=== PATIENT | male | born 1990 | race Caucasian/White ===

== ENCOUNTER → 2016-07-08 | Outpatient (CLI) | payer OTHER ==
[~2016-07-08] MED LIST: CALC0.2510 PO; LEVO1TAB33 PO; LSN25 PO; SULF800T23 PO
[2016-07-08 12:04] LABS: BLOOD UREA NITROGEN 29 mg/dl (7-18); CALCIUM 8.9 mg/dl (8.5-10.1); CARBON DIOXIDE 20 mmol/L (21-32); CHLORIDE 109 mmol/L (98-107); GLUCOSE 85 mg/dl (70-99); PHOSPHORUS 2.4 mg/dl (2.5-4.9); POTASSIUM 3.6 mmol/L (3.5-5.1); SODIUM 141 mmol/L (136-145)
== END | disposition home or self-care (01) ==
LOC: C.LAB1850 10:43
PROVIDERS: ATTEND Internal Medicine Nephrology
DX: N18.3 Chronic kidney disease, stage 3 (moderate) (principal); N25.81 Secondary hyperparathyroidism of renal origin

== ENCOUNTER 2024-01-31 21:59 | Inpatient (IN) ==
[2024-01-31] MEDS: ONDANSETRON INJ 2 MG/ML 2 ML VIAL IV STA (22:35)
[2024-01-31] MEDS: SODIUM CHLORIDE 0.9% 1,000 ML IV STA (22:37)
[2024-01-31 22:41] LABS: Appearance Urine Turbid (Clear); Bilirubin Urine Negative (Negative); Blood Urine 3+ (Negative); Color Urine Brown; Glucose Urine UA Negative (Negative); Ketones Urine Negative (Negative); Leukocyte Esterase Urine 3+ (Negative); Nitrite Urine Negative (Negative); Protein Urine 3+ (Negative); Urobilinogen Urine Negative (Negative); pH Urine 8.5 (4.5-7.5)
[2024-01-31 22:52] LABS: Bacteria Urine 4+ (None Seen); Epithelial Cell Urine 0-2 /hpf (0-2); RBC Urine >20 /hpf (0-2); WBC Urine >50 /hpf (0-5)
[2024-01-31 22:53] LABS: Granular Casts Urine Present /lpf (None Prsent); Hyaline Casts Urine Present /lpf (None Presnt)
[2024-01-31 22:54] LABS: Renal Epithelial Cells Urine Present /lpf (None Presnt)
[2024-01-31 22:55] LABS: White Blood Cell Casts Urine Present /lpf (None Prsent)
[2024-01-31 23:00] LABS: Basophils # (auto) 0.09 K/uL (0.00-0.20); Basophils % (auto) 0.6 %; Eosinophils # (auto) 0.13 K/uL (0.00-0.50); Eosinophils % (auto) 0.9 %; Hematocrit (blood only) 51.6 % (42.0-52.0); Hemoglobin 17.4 g/dl (14.0-18.0); Immature Granulocytes # (auto) 0.06 K/uL (0.01-0.20); Immature Granulocytes % (auto) 0.4 %; Lymphocytes # (auto) 2.55 K/uL (1.20-3.40); Lymphocytes % (auto) 16.8 %; Mean Corpuscular Hemoglobin 29.3 pg (25.0-34.0); Mean Corpuscular Hgb Conc 33.7 g/dL (32.0-36.0); Mean Corpuscular Volume 86.9 fL (80.0-100.0); Mean Platelet Volume 9.5 fL (9.4-12.4); Monocytes # (auto) 1.44 K/uL (0.11-0.59); Monocytes % (auto) 9.5 %; Neutrophils # (auto) 10.91 K/uL (1.40-6.50); Neutrophils % (auto) 71.8 %; Platelet Count 441 K/uL (130-400); RDW Coefficient of Variation 15.2 % (11.5-14.5); RDW Standard Deviation 46.4 fL (36.4-46.3); Red Blood Count 5.94 M/uL (4.70-6.10); White Blood Count 15.18 K/ul (4.8-10.8)
--- NOTE | 2024-01-31 23:00 | Emergency Department Note ---
Impression & Plan Complicated urinary tract infection, Sepsis, Leukocytosis, Acute kidney injury superimposed on chronic kidney disease, Hydroureteronephrosis ED Provider Note HISTORY OF PRESENT ILLNESS: Patient is a 33-year-old male presenting with concern for urinary tract infection. Patient reports that he self caths. He states that he was treated for urinary tract infection 2 weeks ago and completed a course of antibiotics 1 week ago. He does not remember the name of the antibiotic that he was on. Reports this was done through lock even. He states that normally he requires Rocephin for urinary tract infections, but he was discharged on a different oral medication. He states that in the last 2 to 3 days he has had some cloudy and discolored urine that has a foul odor to it. He reports nausea and has had multiple episodes of vomiting throughout the day today. He reports some bilateral low back pain throughout the day. Denies any chest pain or shortness of breath. Denies any measured fevers at home. ROS: as above PHYSICAL EXAM: Constitutional: Patient appears in no acute distress. HENT: Head: Normocephalic and atraumatic. Eyes: EOMI, PERRL Mouth/Throat: Mucous membranes moist. Neck: Trachea midline. Neck supple. Cardiovascular: RRR, No murmurs, rubs or gallops. Intact distal pulses. Pulmonary/Chest: No respiratory distress. Breath sounds clear and equal bilaterally. No wheezes or rales. Abdominal: Abdomen soft, no tenderness, rebound or guarding. Back: No midline spinal tenderness, no paraspinal tenderness. Left CVA tenderness Musculoskeletal: No edema, tenderness or deformity noted. Skin: Warm and dry. No rash, erythema, pallor or cyanosis Psychiatric: Appropriate mood and affect for situation. Neurological: Alert and keenly responsive. CN II-XII grossly intact, moving all extremities equally and fully. MDM: - Vitals signs showed tachycardia - History obtained via patient. History as above. - Chronic conditions affecting care: CKD - Differential diagnoses include, but are not limited to: Pyelonephritis; ureteral stone; hydronephrosis; UTI - Order placed for continuous cardiac monitoring. At this time, monitor showed rate of 84 bpm with normal sinus rhythm, per my interpretation. - External medical records reviewed. - EKG interpreted by myself showed normal sinus rhythm. Rate 83 bpm. QT prolonged at 410. No acute ischemic changes. - Laboratory workup interpreted by myself showed leukocytosis (WBC 15.18) with neutrophil predominance; hyponatremia (Na 135); elevated anion gap (12); RAGHAVENDRA on CKD (Cr 2.46); elevated lipase; normal lactate; normal procalcitonin - UA showed evidence of infection. Given 2 g IV Rocephin. - Given 4 mg IV zofran, with improvement in his nausea - CT abdomen/pelvis wo contrast showed bilateral hydroureteronephrosis. No obvious obstructing stone. - Patient given 1.5L NS in ER. Patient sepsis fluid volume calculation based on ideal body weight is 1690.80 mL. - Given patient's tachycardia, leukocytosis and urinary tract infection, he meets sepsis criteria at this point. - Discussion was had with correctional casework specialist about patient's case and need for admission - Hospitalist, Dr. Costello, consulted for admission - [facility]. I have personally spent 61 minutes of critical care time in the direct management of this patient. This includes bedside care, interpretation of diagnostic studies, and testing, discussion with consultants, patient, and family members, and other required patient management activities. This 61 minutes is in excess of all separately billable procedures. ASSESSMENT AND PLAN: Diagnosis: complicated UTI; sepsis; RAGHAVENDRA on CKD; leukocytosis; hydroureteronephrosis Plan: admit Past Med/Surg History Problem List (Updated 02/01/24 @ 00:07 by Felipa Gustafson MD) Hydroureteronephrosis (Acute) Acute kidney injury superimposed on chronic kidney disease (Acute) Leukocytosis (Acute) Sepsis (Acute) Complicated urinary tract infection (Acute) Medical History (Updated 02/01/24 @ 00:07 by Felipa Gustafson MD) CKD (chronic kidney disease) Surgical History History of urologic surgery Social History Smoking Status: Never smoker Preferred Language: [place] Feels Safe at Home: Yes Allergies Allergies Allergy/AdvReac Type Severity Reaction Status Date / Time latex Allergy Unknown ? Verified 09/23/11 16:39 Home Meds Home Medications Medication Instructions Recorded Confirmed Calcitriol (Rocaltrol Cap) 0.25 mcg PO DAILY ##0 01/28/10 Lisinopril (Zestril *) 2.5 mg PO Q2D ##0 01/28/10 Sulfa/Trimethoprim (Bactrim Ds 1 tab PO BID ##20 09/23/11 800MG/160MG) Previous Rx's Medication Instructions Recorded Levofloxacin (Levaquin) 250 mg PO DAILY 7 days ##0 09/25/11 Results & Data (ED) Vital Signs Vital Signs - 24 hr 01/31/24 22:02 01/31/24 22:41 01/31/24 22:42 Temperature 36.3 C L Temperature Source Temporal Artery Scan Pulse Rate 109 H 83 84 Pulse Rhythm Regular Pulse Strength Normal Respiratory Rate 20 20 Respiratory Effort / Characteristics Non-Labored Spontaneous Respiratory Depth Normal Respiratory Pattern Regular Blood Pressure 112/74 109/87 Blood Pressure Mean 86 94 Pulse Oximetry 92 94 Oxygen Delivery Method Room Air Sepsis Recent Fever Within 48 Hours No Sepsis New/Unexplained Change in Mental Status No Sepsis Action Taken by Nursing No Action Required Laboratory Data 01/31/24 22:33 01/31/24 22:33 Lab Results 01/31/24 01/31/24 Range/Units 22:33 Unknown WBC 15.18 H (4.8-10.8) K/ul RBC 5.94 (4.70-6.10) M/uL Hgb 17.4 (14.0-18.0) g/dl Hct 51.6 (42.0-52.0) % MCV 86.9 (80.0-100.0) fL MCH 29.3 (25.0-34.0) pg MCHC 33.7 (32.0-36.0) g/dL RDW Std Deviation 46.4 H (36.4-46.3) fL RDW Coeff of Mauricio 15.2 H (11.5-14.5) % Plt Count 441 H (130-400) K/uL MPV 9.5 (9.4-12.4) fL Immature Gran % (Auto) 0.4 % Neut % (Auto) 71.8 % Lymph % (Auto) 16.8 % [place] % (Auto) 9.5 % Eos % (Auto) 0.9 % Baso % (Auto) 0.6 % Neut # (Auto) 10.91 H (1.40-6.50) K/uL Lymph # (Auto) 2.55 (1.20-3.40) K/uL [place] # (Auto) 1.44 H (0.11-0.59) K/uL Eos # (Auto) 0.13 (0.00-0.50) K/uL Baso # (Auto) 0.09 (0.00-0.20) K/uL Immature Gran # (Auto) 0.06 (0.01-0.20) K/uL Sodium 135 L (136-145) mmol/L Potassium 3.7 (3.5-5.1) mmol/L Chloride 110 H (98-107) mmol/L Carbon Dioxide 13 L (21-32) mmol/L Anion Gap 12 H (3-11) BUN 43 H (6-23) mg/dl Creatinine 2.46 H (0.6-1.4) mg/dl Est Cr Clr Drug Dosing 31.7 ml/min Est GFR ( Amer) 38.4 ml/min Est GFR (Non-Af Amer) 33.2 ml/min BUN/Creatinine Ratio 17.5 (10-20) Glucose 113 H (70-99(Fasting)) mg/dl Lactate 1.4 (0.4-2.0) mmol/L Calcium 9.9 (8.6-10.3) mg/dl Total Bilirubin 0.7 (0.2-1.0) mg/dl AST 13 (13-39) U/L ALT 18 (7-52) U/L Alkaline Phosphatase 101 (34-104) U/L Total Protein 8.8 H (6.0-8.3) gm/dl Albumin 4.8 (3.4-5.0) gm/dl Globulin 4.0 (2.5-4.0) gm/dl Albumin/Globulin Ratio 1.2 (0.9-2) Lipase 182 H (11-82) U/L Procalcitonin 0.23 (0-0.5) ng/ml Urine Color Brown Urine Appearance Turbid A (Clear) Urine pH 8.5 H (4.5-7.5) Ur Specific [place] 1.020 (1.000-1.030) Urine Protein 3+ H (Negative) Urine Glucose (UA) Negative (Negative) Urine Ketones Negative (Negative) Urine Blood 3+ H (Negative) Urine Nitrite Negative (Negative) Urine Bilirubin Negative (Negative) Urine Urobilinogen Negative (Negative) Ur Leukocyte Esterase 3+ H (Negative) Urine RBC >20 H (0-2) /hpf Urine WBC >50 H (0-5) /hpf Ur Epithelial Cells 0-2 (0-2) /hpf Ur Renal Epithelial Cell Present A (None Presnt) /lpf Urine Bacteria 4+ H (None Seen) Hyaline Casts Present A (None Presnt) /lpf Granular Casts Present A (None Prsent) /lpf WBC Casts Present A (None Prsent) /lpf Administered Medications Sodium Chloride (Nss) 1,000 mls @ 999 mls/hr IV .Q1H1M ONE Stop: 02/01/24 00:18 Last Admin: 01/31/24 23:29 Dose: 999 mls/hr Documented By: JACKLYN Discontinued Medications Sodium Chloride (Nss) 1,000 mls @ 999 mls/hr IV .Q1H1M STA Stop: 01/31/24 23:21 Last Infusion: 01/31/24 23:26 Dose: Infused Documented By: Admin: 01/31/24 22:37 Dose: 999 mls/hr Documented By: JACKLYN Ceftriaxone Sodium (Rocephin) 2,000 mg in 50 mls @ 100 mls/hr IV NOW STA Stop: 01/31/24 23:27 Last Infusion: 01/31/24 23:26 Dose: Infused Documented By: Admin: 01/31/24 23:06 Dose: 100 mls/hr Documented By: JACKLYN Ondansetron HCl (Ondansetron Inj 2 Mg/Ml 2 Ml Vial) 4 mg IV NOW STA Stop: 01/31/24 22:22 Last Admin: 01/31/24 22:35 Dose: 4 mg Documented By: JACKLYN Imaging Data Radiologist's Impression: Abdomen/Pelvis CT 01/31/24 23:29 Exam(s): CT ABDOMEN + PELVIS Without Contrast EXAM: CT Abdomen and Pelvis Without Intravenous Contrast CLINICAL HISTORY: Reason for exam: bilateral flank pain; UTI. TECHNIQUE: Axial computed tomography images of the abdomen and pelvis without intravenous contrast. CTDI is 7.94 mGy and DLP is 357.28 mGy-cm. Automated exposure control was utilized for the study. A dose lowering technique was utilized adhering to the principles of ALARA. COMPARISON: No relevant prior studies available. FINDINGS: The exam is limited due to lack of contrast material. Lung bases: No consolidation. ABDOMEN: Liver: Lucencies within the liver appear to represent unopacified blood vessels. Gallbladder and bile ducts: No calcified stones. No ductal dilation. Pancreas: The visualized portions of the pancreas, on this noncontrast study, are grossly unremarkable.. Spleen: No splenomegaly. Adrenals: No mass. Kidneys and ureters: The kidneys are enlarged. There are bilateral renal calcifications. There is marked renal cortical thinning. There is marked bilateral hydronephrosis. There is marked right hydroureters. The mid portions of the ureters unite into a single ureter. No obstructing calculus is noted.. Stomach and bowel: There is some air and fluid within the stomach. There is air and stool noted in the colon.. PELVIS: Appendix: The appendix is not visualized.. Bladder: Urinary bladder is distended. There is asymmetric thickening of the urinary bladder wall. There appears to be a ostomy site in the right lower quadrant extending from the urinary bladder. Reproductive: There may be a hydrocele present within the scrotum.. ABDOMEN and PELVIS: Intraperitoneal space: . No free air. No significant fluid collection. Bones/joints: No acute fracture. No dislocation. Soft tissues: Unremarkable. Vasculature: No abdominal aortic aneurysm. Lymph nodes: There are some enlarged retroperitoneal lymph nodes.. IMPRESSION: The kidneys are enlarged. There are bilateral renal calcifications. There is marked renal cortical thinning. There is marked bilateral hydronephrosis. There is marked hydroureters. The mid portions of the ureters unite into a single ureter. No obstructing calculus is noted.. Urinary bladder is distended. There is asymmetric thickening of the urinary bladder wall. There appears to be a ostomy site in the right lower quadrant extending from the urinary bladder. There are some enlarged retroperitoneal lymph nodes.. Electronically signed by: Kolton Escalera MD 02/01/24 00:05 AM Discharge Plan Visit Data Chief Complaint: Urinary Symptoms Stated Complaint: KIDNEY INFECTION - FLANK PAIN,VOMIT ED Provider: Felipa Gustafson Discharge Problem: Complicated urinary tract infection, Sepsis, Leukocytosis, Acute kidney injury superimposed on chronic kidney disease, Hydroureteronephrosis Forms Stand Alone Forms: [facility] EditGrid Prescriptions Prescriptions: No Action Calcitriol (Rocaltrol Cap) 0.25 MCG capsule 0.25 mcg PO DAILY Qty: 0 Lisinopril (Zestril *) 2.5 MG tablet 2.5 mg PO Q2D Qty: 0 Sulfa/Trimethoprim (Bactrim Ds 800MG/160MG) tablet 1 tab PO BID Qty: 20 Levofloxacin (Levaquin) 500 MG tablet 250 mg PO DAILY 7 Days Qty: 0 0RF Referrals Referrals: PCP,NO [Primary Care Provider] -
[2024-01-31] MEDS: cefTRIAXone SODIUM 2,000 MG/50 ML BAG IV STA (23:06)
[2024-01-31 23:13] LABS: Albumin Globulin Ratio 1.2 (0.9-2); Albumin Level 4.8 gm/dl (3.4-5.0); BUN Creatinine Ratio 17.5 (10-20); Bilirubin,Total 0.7 mg/dl (0.2-1.0); Calcium 9.9 mg/dl (8.6-10.3); Creatinine Clr Calc Pharmacy 31.7 ml/min; Est GFR (African American) 38.4 ml/min; Est GFR (Non-African American) 33.2 ml/min; Potassium 3.7 mmol/L (3.5-5.1); Total Protein 8.8 gm/dl (6.0-8.3)
[2024-01-31] MEDS: SODIUM CHLORIDE 0.9% 1,000 ML IV ONE (23:29)
--- NOTE | 2024-02-01 00:06 | CT Scan Report ---
Exam(s): CT ABDOMEN + PELVIS Without Contrast EXAM: CT Abdomen and Pelvis Without Intravenous Contrast CLINICAL HISTORY: Reason for exam: bilateral flank pain; UTI. TECHNIQUE: Axial computed tomography images of the abdomen and pelvis without intravenous contrast. CTDI is 7.94 mGy and DLP is 357.28 mGy-cm. Automated exposure control was utilized for the study. A dose lowering technique was utilized adhering to the principles of ALARA. COMPARISON: No relevant prior studies available. FINDINGS: The exam is limited due to lack of contrast material. Lung bases: No consolidation. ABDOMEN: Liver: Lucencies within the liver appear to represent unopacified blood vessels. Gallbladder and bile ducts: No calcified stones. No ductal dilation. Pancreas: The visualized portions of the pancreas, on this noncontrast study, are grossly unremarkable.. Spleen: No splenomegaly. Adrenals: No mass. Kidneys and ureters: The kidneys are enlarged. There are bilateral renal calcifications. There is marked renal cortical thinning. There is marked bilateral hydronephrosis. There is marked right hydroureters. The mid portions of the ureters unite into a single ureter. No obstructing calculus is noted.. Stomach and bowel: There is some air and fluid within the stomach. There is air and stool noted in the colon.. PELVIS: Appendix: The appendix is not visualized.. Bladder: Urinary bladder is distended. There is asymmetric thickening of the urinary bladder wall. There appears to be a ostomy site in the right lower quadrant extending from the urinary bladder. Reproductive: There may be a hydrocele present within the scrotum.. ABDOMEN and PELVIS: Intraperitoneal space: . No free air. No significant fluid collection. Bones/joints: No acute fracture. No dislocation. Soft tissues: Unremarkable. Vasculature: No abdominal aortic aneurysm. Lymph nodes: There are some enlarged retroperitoneal lymph nodes.. IMPRESSION: The kidneys are enlarged. There are bilateral renal calcifications. There is marked renal cortical thinning. There is marked bilateral hydronephrosis. There is marked hydroureters. The mid portions of the ureters unite into a single ureter. No obstructing calculus is noted.. Urinary bladder is distended. There is asymmetric thickening of the urinary bladder wall. There appears to be a ostomy site in the right lower quadrant extending from the urinary bladder. There are some enlarged retroperitoneal lymph nodes.. Electronically signed by: Kolton Escalera MD 02/01/24 00:05 AM
[2024-02-01] MEDS: SODIUM CHLORIDE 0.9% 500 ML IV ONE (00:19)
--- NOTE | 2024-02-01 01:26 | History & Physical Report ---
Date of Service February 01, 2024 Assessment & Plan (1) Complicated urinary tract infection: Plan: 33-year-old male with past med history significant for chronic kidney disease, vesicoureteral reflux with multiple kidney and bladder surgeries started age 5 had bladder enlarged x3 , right and left ureters connected,had total of 19 surgeries, currently has stoma is right lower abdomen from which he straight caths 4-5 times daily and has history of recurrent UTIs comes because of urinary symptoms. Patient generally goes to [facility]. Recently was treated for UTI completed antibiotic about a week ago. Mother is in the room. Usually Rocephin works best for him per mother .Mother thinks thinks he was given different antibiotics and his UTI is not getting cleared up and decided come to the our hospital. Yesterday was doing okay was eating and ambulating okay. Today has nausea and some back pain. And his urine urine has foul smelling and dark in color. Denies fevers. Denies headache. No runny nose or sore throat or cough. No chest pain or shortness of breath. No abdominal pain. Normal bowel movements. Hemodynamics are okay. States currently not taking any medications Complicated urinary tract infection History of vesicoureteral reflux and multiple surgeries for kidney and bladder Right and left ureters connected CT scan showing marked bilateral hydronephrosis and hydroureter's. No obstructing calculus noted bladder is distended Patient straight caths from ostomy in the right lower quadrant received Rocephin which will be continued, will follow cultures Gentle fluids Close monitor RAGHAVENDRA/CKD stage III Metabolic acidosis Baseline creatinine around 2 There is record of baseline creatinine around 2.4 We do not have records Avoid nephrotoxic agents Request for records Nephrology consult in a.m Follow repeat labs DVT prophylaxis Heparin subcu Disposition Med/telemetry Full code History of Present Illness Chief Complaint: Urinary symptoms Primary Care Provider: NO PCP 33-year-old male with past med history significant for chronic kidney disease, vesicoureteral reflux with multiple kidney and bladder surgeries started age 5 had bladder enlarged x3 , right and left ureters connected,had total of 19 surgeries, currently has stoma is right lower abdomen from which he straight caths 4-5 times daily and has history of recurrent UTIs comes because of urinary symptoms. Patient generally goes to [facility]. Recently was treated for UTI completed antibiotic about a week ago. Mother is in the room. Usually Rocephin works best for him per mother .Mother thinks thinks he was given different antibiotics and his UTI is not getting cleared up and decided come to the our hospital. Yesterday was doing okay was eating and ambulating okay. Today has nausea and some back pain. And his urine urine has foul smelling and dark in color. Denies fevers. Denies headache. No runny nose or sore throat or cough. No chest pain or shortness of breath. No abdominal pain. Normal bowel movements. Hemodynamics are okay. States currently not taking any medications Past medical history. As mentioned above. Past surgical history. Multiple kidney and ureter and bladder surgeries. Social history. Denies smoking. Denies alcohol Use. Denies drug use. Family history. Brother has kidney reflux disease. Allergies Allergy/AdvReac Type Severity Reaction Status Date / Time latex Allergy Unknown ? Verified 09/23/11 16:39 Home Medications Medication Instructions Recorded Confirmed Type Calcitriol (Rocaltrol Cap) 0.25 mcg PO DAILY ##0 01/28/10 History Lisinopril (Zestril *) 2.5 mg PO Q2D ##0 01/28/10 History Sulfa/Trimethoprim (Bactrim Ds 1 tab PO BID ##20 09/23/11 History 800MG/160MG) Levofloxacin (Levaquin) 250 mg PO DAILY 7 days ##0 09/25/11 Rx Past Med/Surg History Problem List (Updated 02/01/24 @ 00:07 by Felipa Gustafson MD) Hydroureteronephrosis (Acute) Acute kidney injury superimposed on chronic kidney disease (Acute) Leukocytosis (Acute) Sepsis (Acute) Complicated urinary tract infection (Acute) Medical History (Updated 02/01/24 @ 00:07 by Felipa Gustafson MD) CKD (chronic kidney disease) Surgical History History of urologic surgery Social History Smoking Status: Never smoker Hx Alcohol Use: No Hx Substance Use: No Preferred Language: Macedonian Communication Ability: Effective Benefits Officer Required: No Beliefs That Will Affect Care: None Current Living Situation: Spouse Other Information That Helps Us Care for You: No Feels Safe at Home: Yes Safety Concerns: Feels Safe At This Time Review of Systems Review of Systems: All systems reviewed & are unremarkable except as noted in HPI & below Physical Exam Physical Exam: General-Not in distress Head- atraumatic Eyes- PERRL. ENT- oropharynx clear Neck- supple, no JVD. Lungs- clear to auscultation no wheezing or crackles Heart- regular rate and rhythm; no murmur, no gallop. Abdomen- normal bowel sounds, soft, nontender, no distension Extremities- no pretibial edema, no erythema seen Neuro- alert, oriented PERRL, EOMI; no facial palsy; no dysarthria; moves extremities Results & Data Results & Data Vital Signs (Past 12 Hours) Vital Signs Temp Pulse Resp BP Pulse Ox O2 Del Method 02/01/24 00:13 84 16 106/73 97 01/31/24 22:42 84 20 109/87 94 01/31/24 22:41 83 01/31/24 22:02 36.3 C L 109 H 20 112/74 92 Room Air Diagnostic Findings Laboratory Results WBC 15.18 K/ul (4.8-10.8) H 01/31/24 22:33 RBC 5.94 M/uL (4.70-6.10) 01/31/24 22:33 Hgb 17.4 g/dl (14.0-18.0) 01/31/24 22:33 Hct 51.6 % (42.0-52.0) 01/31/24 22:33 MCV 86.9 fL (80.0-100.0) 01/31/24 22:33 MCH 29.3 pg (25.0-34.0) 01/31/24 22:33 MCHC 33.7 g/dL (32.0-36.0) 01/31/24 22:33 RDW Std Deviation 46.4 fL (36.4-46.3) H 01/31/24 22:33 RDW Coeff of Mauricio 15.2 % (11.5-14.5) H 01/31/24 22:33 Plt Count 441 K/uL (130-400) H 01/31/24 22:33 MPV 9.5 fL (9.4-12.4) 01/31/24 22:33 Immature Gran % (Auto) 0.4 % 01/31/24 22:33 Neut % (Auto) 71.8 % 01/31/24 22:33 Lymph % (Auto) 16.8 % 01/31/24 22:33 [place] % (Auto) 9.5 % 01/31/24 22:33 Eos % (Auto) 0.9 % 01/31/24 22:33 Baso % (Auto) 0.6 % 01/31/24 22:33 Neut # (Auto) 10.91 K/uL (1.40-6.50) H 01/31/24 22:33 Lymph # (Auto) 2.55 K/uL (1.20-3.40) 01/31/24 22:33 [place] # (Auto) 1.44 K/uL (0.11-0.59) H 01/31/24 22:33 Eos # (Auto) 0.13 K/uL (0.00-0.50) 01/31/24 22:33 Baso # (Auto) 0.09 K/uL (0.00-0.20) 01/31/24 22:33 Immature Gran # (Auto) 0.06 K/uL (0.01-0.20) 01/31/24 22:33 Sodium 135 mmol/L (136-145) L 01/31/24 22:33 Potassium 3.7 mmol/L (3.5-5.1) 01/31/24 22:33 Chloride 110 mmol/L (98-107) H 01/31/24 22:33 Carbon Dioxide 13 mmol/L (21-32) L 01/31/24 22:33 Anion Gap 12 (3-11) H 01/31/24 22:33 BUN 43 mg/dl (6-23) H 01/31/24 22:33 Creatinine 2.46 mg/dl (0.6-1.4) H 01/31/24 22:33 Est Cr Clr Drug Dosing 31.7 ml/min 01/31/24 22:33 Est GFR ( Amer) 38.4 ml/min 01/31/24 22:33 Est GFR (Non-Af Amer) 33.2 ml/min 01/31/24 22:33 BUN/Creatinine Ratio 17.5 (10-20) 01/31/24 22:33 Glucose 113 mg/dl (70-99(Fasting)) H 01/31/24 22:33 Lactate 1.4 mmol/L (0.4-2.0) 01/31/24 22:33 Calcium 9.9 mg/dl (8.6-10.3) 01/31/24 22:33 Total Bilirubin 0.7 mg/dl (0.2-1.0) 01/31/24 22:33 AST 13 U/L (13-39) 01/31/24 22:33 ALT 18 U/L (7-52) 01/31/24 22:33 Alkaline Phosphatase 101 U/L (34-104) 01/31/24 22:33 Total Protein 8.8 gm/dl (6.0-8.3) H 01/31/24 22:33 Albumin 4.8 gm/dl (3.4-5.0) 01/31/24 22:33 Globulin 4.0 gm/dl (2.5-4.0) 01/31/24 22:33 Albumin/Globulin Ratio 1.2 (0.9-2) 01/31/24 22:33 Lipase 182 U/L (11-82) H 01/31/24 22:33 Procalcitonin 0.23 ng/ml (0-0.5) 01/31/24 22:33 Urine Color Brown 01/31/24 Unknown Urine Appearance Turbid (Clear) A 01/31/24 Unknown Urine pH 8.5 (4.5-7.5) H 01/31/24 Unknown Ur Specific [place] 1.020 (1.000-1.030) 01/31/24 Unknown Urine Protein 3+ (Negative) H 01/31/24 Unknown Urine Glucose (UA) Negative (Negative) 01/31/24 Unknown Urine Ketones Negative (Negative) 01/31/24 Unknown Urine Blood 3+ (Negative) H 01/31/24 Unknown Urine Nitrite Negative (Negative) 01/31/24 Unknown Urine Bilirubin Negative (Negative) 01/31/24 Unknown Urine Urobilinogen Negative (Negative) 01/31/24 Unknown Ur Leukocyte Esterase 3+ (Negative) H 01/31/24 Unknown Urine RBC >20 /hpf (0-2) H 01/31/24 Unknown Urine WBC >50 /hpf (0-5) H 01/31/24 Unknown Ur Epithelial Cells 0-2 /hpf (0-2) 01/31/24 Unknown Ur Renal Epithelial Cell Present /lpf (None Presnt) A 01/31/24 Unknown Urine Bacteria 4+ (None Seen) H 01/31/24 Unknown Hyaline Casts Present /lpf (None Presnt) A 01/31/24 Unknown Granular Casts Present /lpf (None Prsent) A 01/31/24 Unknown WBC Casts Present /lpf (None Prsent) A 01/31/24 Unknown Impressions Abdomen/Pelvis CT 01/31/24 23:29 Exam(s): CT ABDOMEN + PELVIS Without Contrast EXAM: CT Abdomen and Pelvis Without Intravenous Contrast CLINICAL HISTORY: Reason for exam: bilateral flank pain; UTI. TECHNIQUE: Axial computed tomography images of the abdomen and pelvis without intravenous contrast. CTDI is 7.94 mGy and DLP is 357.28 mGy-cm. Automated exposure control was utilized for the study. A dose lowering technique was utilized adhering to the principles of ALARA. COMPARISON: No relevant prior studies available. FINDINGS: The exam is limited due to lack of contrast material. Lung bases: No consolidation. ABDOMEN: Liver: Lucencies within the liver appear to represent unopacified blood vessels. Gallbladder and bile ducts: No calcified stones. No ductal dilation. Pancreas: The visualized portions of the pancreas, on this noncontrast study, are grossly unremarkable.. Spleen: No splenomegaly. Adrenals: No mass. Kidneys and ureters: The kidneys are enlarged. There are bilateral renal calcifications. There is marked renal cortical thinning. There is marked bilateral hydronephrosis. There is marked right hydroureters. The mid portions of the ureters unite into a single ureter. No obstructing calculus is noted.. Stomach and bowel: There is some air and fluid within the stomach. There is air and stool noted in the colon.. PELVIS: Appendix: The appendix is not visualized.. Bladder: Urinary bladder is distended. There is asymmetric thickening of the urinary bladder wall. There appears to be a ostomy site in the right lower quadrant extending from the urinary bladder. Reproductive: There may be a hydrocele present within the scrotum.. ABDOMEN and PELVIS: Intraperitoneal space: . No free air. No significant fluid collection. Bones/joints: No acute fracture. No dislocation. Soft tissues: Unremarkable. Vasculature: No abdominal aortic aneurysm. Lymph nodes: There are some enlarged retroperitoneal lymph nodes.. IMPRESSION: The kidneys are enlarged. There are bilateral renal calcifications. There is marked renal cortical thinning. There is marked bilateral hydronephrosis. There is marked hydroureters. The mid portions of the ureters unite into a single ureter. No obstructing calculus is noted.. Urinary bladder is distended. There is asymmetric thickening of the urinary bladder wall. There appears to be a ostomy site in the right lower quadrant extending from the urinary bladder. There are some enlarged retroperitoneal lymph nodes.. Electronically signed by: Kolton Escalera MD 02/01/24 00:05 AM ECG Additional Comments: ECG. Normal sinus rhythm with rate of 83. QTc 481. Code Status & VTE Plan VTE Prophylaxis Plan VTE Prophylaxis will be ordered: Yes
--- OUTSIDE RECORDS SUMMARY | 2024-02-01 02:47 | External Medical Summary ---
Author Name Unknown Address Unknown Organization R1WR:[facility] [address] [place] [address] Laboratory Report Ordering Provider Test Date Status MONICA KANG 12/01/2023 18:56:00 Final Observation Date Value Abnormality Reference (Units ) Status Specimen Description 12/01/2023 18:49 Blood Final Special Requests 12/02/2023 11:54 RAC Final Culture 12/07/2023 08:14 No Growth 5 Days Final Report Status 12/07/2023 08:14 Final Result 12/07/2023 Final Performing Location [facility] [address] [place] [address]
--- OUTSIDE RECORDS SUMMARY | 2024-02-01 02:47 | External Medical Summary ---
Author Name Unknown Address Unknown Organization R1WR:[facility] [address] [facility] [address] Laboratory Report Ordering Provider Test Date Status MONICA KANG 12/01/2023 18:57:00 Final Observation Date Value Abnormality Reference (Units ) Status Specimen Description 12/01/2023 18:49 Blood Final Special Requests 12/02/2023 11:54 LAC Final Culture 12/07/2023 08:14 No Growth 5 Days Final Report Status 12/07/2023 08:14 Final Result 12/07/2023 Final Performing Location [facility] [address] [place] [address]
--- OUTSIDE RECORDS SUMMARY | 2024-02-01 02:47 | External Medical Summary ---
Author Name Unknown Address Unknown Organization R1WR:[facility] [address] [facility] [place] [address] Laboratory Report Ordering Provider Test Date Status YE DAN 12/01/2023 18:11:00 Final Observation Date Value Abnormality Reference (Units) Status Specimen Description 12/01/2023 18:27 Urine Final Special Requests 12/01/2023 18:27 None Reflexed from [id number] Final Culture 12/03/2023 13:01 Greater than 100,000 cfu/ml Escherichia coli Final 50,000-100,000 cfu/mL STREPT OCOCCUS ANGINOSUS Report Status 12/03/2023 13:01 Final Result 12/03/2023 Final Organism 12/03/2023 09:08 Greater than 10 0,000 cfu/ml Escherichia coli Final METHOD 12/03/2023 09:08 Microscan SOCORRO-u g/ml (HARDY) Final Ampicillin 12/03/2023 09:08 >16 Resistant Resistant Final Aztreonam 12/03/2023 09:08 <=4 Sensitive Susceptible Final Cefazolin 12/03/2023 09:08 >16 Resistant Resistant Final Cefepime 12/03/2023 09:08 <=2 Sensitive Susceptible Final Ceftazidime 12/03/2023 09:08 <=1 Sensitive Susceptible Final Ceftriaxone 12/03/2023 09:08 <=1 Sensitive Susceptible Final Cefuroxime 12/03/2023 09:08 16 Intermediate Intermediate Final Ciprofloxacin 12/03/2023 09:08 >2 Resistant Resistant Final Ertapenem 12/03/2023 09:08 <=0.5 Sensitive Susceptible Final Gentamicin 12/03/2023 09:08 <=2 Sensitive Susceptible Final Levofloxacin 12/03/2023 09:08 >4 Resistant Resistant Final Meropenem 12/03/2023 09:08 <=1 Sensitive Susceptible Final Nitrofurantoin 12/03/2023 09:08 <=32 Sensitive Susceptible Final Piperacillin/Tazobactam 12/03/2023 09:08 <=8 Sensitive Susce ptible Final Tetracycline 12/03/2023 09:08 <=4 Sensitive Susceptible Final Tobramycin 12/03/2023 09:08 <=2 Sensitive Susceptible Final Sulfa/Trimethoprim 12/03/2023 09:08 <=0.5/9.5 Sensitive Susc eptible Final Ampicillin/Sulbactam 12/03/2023 09:08 16/8 Intermediate Inte rmediate Final Performing Location [facility] [address] [facility] [id number]
--- OUTSIDE RECORDS SUMMARY | 2024-02-01 02:47 | External Medical Summary ---
Author Name Unknown Address Unknown Organization [id number]:[facility] [address] [place] [address] Laboratory Report Ordering Provider Test Date Status YE TRUJILLO 01/13/2024 20:22:00 Final Observation Date Value Abnormality Reference (Units ) Status Urine WBC 01/13/2024 20:49 >100 Abnormal ZTF (/hpf) Fi nal Urine RBC 01/13/2024 20:49 50-100 Abnormal ZTFR (/hpf) F inal Urine Bacteria 01/13/2024 20:49 Many Abnormal NONE (/h pf) Final Epithelial Cells 01/13/2024 20:49 0-5 ZTF (/ lpf) Final Amorphous 01/13/2024 20:49 Moderate Abnormal NONE Fin al Performing Location [facility] [address] [place] [address]
--- OUTSIDE RECORDS SUMMARY | 2024-02-01 02:47 | External Medical Summary ---
Author Name Unknown Address Unknown Organization K01:[facility] - [address] [place] [address] Laboratory Report Ordering Provider Test Date Status HERVE FLORES 08/09/2023 18:27:25 Final Observation Date Value Abnormality Reference (Units) Status Bacteria identified in Specimen by Culture 08/09/2023 18:27:25 Multiple gala suggests contamination or colonization Final Test: Culture, Urine, Quanti tative
Specimen Source: Urine, Clean Catch
Specimen Type: Urine
Specimen Date: 08/09/2023 6:27 PM
Result Date: 08/10/2023 6:19 PM
Result Status: Final result
Resulting Lab: [facility]
[address]
[place] [id number]

CULTURE

Multiple gala suggests contamination or colonization

null Performing Location [facility] - [address] [place] [id number]
--- OUTSIDE RECORDS SUMMARY | 2024-02-01 02:47 | External Medical Summary | Summary of Care ---
Author Name Unknown Organization [facility] Address [address] [place] [address] Phone [phone] Care Team Providers Care Patient'S Librarian Name Role Phone Unavailable Primary Care Provider Unavailabl e Reason for Visit * Reason Onset Date Comments Culture Results 01/17/2024 Encounter Details Date Type Department Care Team (Late st Contact Info) Description 01/17/2024 Telephone [facility] [address] [place] [id number] Kristopher Ricks PA-C [address] [place] [id number] Culture Results Allergies Active Allergy Reactions Criticality Noted Date Comments Latex 11/21/2004 rash documented as of this encounter (statuses as of 01/19/2024) Medications Medication Sig Dispensed Refills Start Date End Date Status LISINOPRIL 2.5 MG PO TABS One pill by mouth once a day 30 11 09/10/2009 Active CALCITRIOL 0.25 MCG PO CAPS 1 CAPSULE DAILY 0 09/10/2009 Active nitrofurantoin (MACRODANTIN) 100 MG Capsule One daily Active documented as of this encounter (statuses as of 01/19/2024) Active Problems Problem Noted Date Diagnosed Date ADVANCE DIRECTIVE INFORMATION 11/21/2004 Overview: Not applicable (under age of 18) Hydronephrosis 03/23/2003 URIN TRACT INFECTION NOS 03/23/2003 Short stature 03/23/2003 documented as of this encounter (statuses as of 01/19/2024) Immunizations Name Administration Dates Next Due H1N1 2009 Influenza, IM 09/10/2009(Deferred: Pat ient Refused) Hepatitis B, 0-19 yrs 08/05/2005 Meningococcal Conjugate Vacc ine (Menactra/Menveo) 05/06/2009 documented as of this encounter Social History Tobacco Use Types Packs/Day Years Used Date Smoking Tobacco: Never Smokeless Tobacco: Never Alcohol Use Standard Drinks/Week Comments No 0 (1 standard drink = 0.6 oz pur e alcohol) Utilities Answer Date Recorded Do you have trouble paying y our heating, water, or electric bill? (Adult - for ages 18 years and over) Not on file 11/09/2023 Is your family able to pay t he heat, water, or electric bill? (Household - for ages 0-17 years) Not on file 11/09/2023 Does your family have access to good internet? (Household - for ages 0-17 years) Not on file 11/09/2023 Social Connections Answer Date Recorded How often do you feel lonely or isolated from those around you? (Adult - for ages 18 years and over) Not on file 11/09/2023 Sex and Gender Information Value Date Recorded Sex Assigned at Not on file Gender Identity Not on file Sexual Orientation Not on file Job Start Date Occupation Industry Not on file Not on file Not on file documented as of this encounter Miscellaneous Notes * Telephone Encounter - Kristopher Ricks PA-C - 01/19/2024 10:17 AM EDT INFORMED PATIENT THAT HE DID GROW OUT BACTERIA IN URINE, AND WONDERING IF [facility] STARTED HIM ON ANYTHING. SAID IT WAS CEFAXIDRIL SHOULD BE GOOD WITH THAT ONE BASED ON OUR CULTURE RESULTS. NEVER DID FIND OUT WHY HIS O2 WAS SO LOW BUT SENT HIM HOME. documented in this encounter Plan of Treatment Health Maintenance Due Date Last Done Comments Depression Screening 2002 HIV Screening 2005 Hepatitis C Screening 2008 DTap/Tdap Vaccines (6 - Td or Tdap) 02/16/2015 02/16/2005, 06/18/1992, 11/13/1991, Additional history exists COVID-19 Vaccine (2022-24 season) 2023 Influenza Vaccine (FLU shot) (#1) 2024 Hepatitis B Vaccine Completed 08/05/2005, 03/16/2005, 02/16/2005 MENINGOCOCCAL (MENACTRA/MENVEO) Completed 05/06/2009 HPV (Gardasil) Vaccine Aged Out No lo nger eligible based on patient's age to complete this topic Pneumococcal Vaccine: Pediatrics (0 to 5 Years) and At-Risk Patients (6 to 64 Years) Aged Out No longer eligible based on patient's age to complete this topic documented as of this encounter Medical Devices Not on filedocumented as of this encounter
--- OUTSIDE RECORDS SUMMARY | 2024-02-01 02:47 | External Medical Summary ---
Author Name Unknown Address Unknown Organization R4:[facility] [address] [place] [address] Laboratory Report Ordering Provider Test Date Status YE TRUJILLO 01/13/2024 20:45:00 Final Observation Date Value Abnormality Reference (Units ) Status WBC 01/13/2024 20:59 12.3 Above high normal 4.0-9 .1 (X10E+09/L) Final RBC 01/13/2024 20:59 5.39 4.6-6.1 (X10E +12/L) Final Hemoglobin 01/13/2024 20:59 16.2 13.4-17.5 (g /dL) Final Hematocrit 01/13/2024 20:59 48.2 40-51 (%) Fi nal MCV 01/13/2024 20:59 89.5 79-92 (fL) Fi nal MCH 01/13/2024 20:59 30.1 26.0-32.0 (pg ) Final MCHC 01/13/2024 20:59 33.6 32-37 (g/dL) Final Platelets 01/13/2024 20:59 371 Above high normal 150-3 30 (X10E+09/L) Final RDW 01/13/2024 20:59 14.7 Above high normal 11.6- 14.4 (%) Final Neutrophils 01/13/2024 20:59 69.2 Above high normal 34. 0-67.9 (%) Final Lymphocytes 01/13/2024 20:59 15.2 Below low normal 21.8 -53.1 (%) Final Monocytes 01/13/2024 20:59 14.6 Above high normal 5.3-1 2.2 (%) Final PERIPHERAL SMEAR REVIEWED Eosinophils 01/13/2024 20:59 0.7 Below low normal 0.8- 7.0 (%) Final Basophils 01/13/2024 20:59 0.3 0.1-1.2 (%) F inal Absolute Neutrophils 01/13/2024 20:59 8.50 Above hig h normal 1.8-5.4 (X10E+09/L) Final Absolute Lymphocytes 01/13/2024 20:59 1.90 1.3-3.6 (X10E+09/L) Final Absolute Monocytes 01/13/2024 20:59 1.80 Above high normal 0.3-0.8 (X10E+09/L) Final Absolute Eosinophils 01/13/2024 20:59 0.10 0.0-0.5 (X10E+09/L) Final Absolute Basophils 01/13/2024 20:59 0.00 0.0-0.1 (X10E+09/L) Final Performing Location [facility] [address] [place] [address]
--- OUTSIDE RECORDS SUMMARY | 2024-02-01 02:47 | External Medical Summary ---
Author Name Unknown Address Unknown Organization R1WR:[facility] [address] [facility] [place] [address] Laboratory Report Ordering Provider Test Date Status YE DAN 01/13/2024 20:22:00 Final Observation Date Value Abnormality Reference (Units) Status Specimen Description 01/13/2024 20:49 Urine Final Special Requests 01/13/2024 20:49 None Reflexed from [id number] Final Culture 01/16/2024 14:01 Greater than 100,000 cfu/ml Escherichia coli Final Greater than 100,000 cfu/ml STREPTOCOCCUS ANGINOSUS Report Status 01/16/2024 14:01 Final Result 01/16/2024 Final Organism 01/16/2024 14:01 Greater than 10 0,000 cfu/ml Escherichia coli Final METHOD 01/16/2024 14:01 Microscan SOCORRO-u g/ml (HARDY) Final Ampicillin 01/16/2024 14:01 >16 Resistant Resistant Final Aztreonam 01/16/2024 14:01 <=4 Sensitive Susceptible Final Cefazolin 01/16/2024 14:01 4 Sensitive Susceptible Final Cefepime 01/16/2024 14:01 <=2 Sensitive Susceptible Final Ceftazidime 01/16/2024 14:01 <=1 Sensitive Susceptible Final Ceftriaxone 01/16/2024 14:01 <=1 Sensitive Susceptible Final Cefuroxime 01/16/2024 14:01 16 Intermediate Intermediate Final Ciprofloxacin 01/16/2024 14:01 >2 Resistant Resistant Final Ertapenem 01/16/2024 14:01 <=0.5 Sensitive Susceptible Final Gentamicin 01/16/2024 14:01 <=2 Sensitive Susceptible Final Levofloxacin 01/16/2024 14:01 >4 Resistant Resistant Final Meropenem 01/16/2024 14:01 <=1 Sensitive Susceptible Final Nitrofurantoin 01/16/2024 14:01 <=32 Sensitive Susceptible Final Piperacillin/Tazobactam 01/16/2024 14:01 <=8 Sensitive Susce ptible Final Tetracycline 01/16/2024 14:01 <=4 Sensitive Susceptible Final Tobramycin 01/16/2024 14:01 <=2 Sensitive Susceptible Final Sulfa/Trimethoprim 01/16/2024 14:01 <=0.5/9.5 Sensitive Susc eptible Final Ampicillin/Sulbactam 01/16/2024 14:01 16/8 Intermediate Inte rmediate Final Performing Location [facility] [address] [place] [address]
--- OUTSIDE RECORDS SUMMARY | 2024-02-01 02:47 | External Medical Summary ---
Author Name Unknown Address Unknown Organization [id number]:[facility] - [address] [facility] [address] Laboratory Report Ordering Provider Test Date Status KEONPILARPEDRO LUIS 01/13/2024 19:27:12 Final Observation Date Value Abnormality Reference (Units ) Status Bacteria identified in Specimen by Culture 01/13/2024 19:27:12 [id number]^ESCHE RICHIA COLI Abnormal Final >100,000 colonies/mL Escheri isaac coli Bacteria identified in Specimen by Culture 01/13/2024 19:27:12 [id number]^STREPTOCOCCUS ANGINOSUS GROUP Abnormal Final 10,000 to 100,000 colonies/m L Streptococcus anginosus group Performing Location LABORATORY C - [address] [facility] [id number] Ordering Provider Test Date Status PEDRO LUIS HERBERT 01/13/2024 19:27:12 Final Observation Date Value Abnormality Reference (Units ) Status Ampicillin 01/13/2024 19:27:12 >=32 Resistant Final Ampicillin + Sulbactam 01/13/2024 19:27:12 16 Intermediate Final Cefazolin 01/13/2024 19:27:12 <=4 Susceptible Final Cefepime susceptibility 01/13/2024 19:27:12 <=1 Susceptible Final cefOXitin [Susceptibility] 01/13/2024 19:27:12 16 Intermediate Final Ceftriaxone suceptibility 01/13/2024 19:27:12 <=1 Susceptible Final Ciprofloxacin 01/13/2024 19:27:12 >=4 Resistant Final Due to serious side effects, the FDA has advised against using Ciprofloxacin to treat uncomplicated UTIs and respiratory tract infections unless there are no alternative treatment options. Gentamicin susceptibility 01/13/2024 19:27:12 <=1 Susc eptible Final Levofloxacin susceptibility 01/13/2024 19:27:12 >=8 Re sistant Final Due to serious side effects, the FDA has advised against using Levofloxacin to treat uncomplicated UTIs and respiratory tract infections unless there are no alternative treatment options. Nitrofurantoin susceptibility 01/13/2024 19:27:12 <=16 Susceptible Final Piperacillin + Tazobactamsusceptibility 01/13/2024 19:27:12 <=4 Susceptible Final TMP-SMZ susceptibility 01/13/2024 19:27:12 <=20 Suscept ible Final Test: Culture, Urine, Quant itative
Specimen Source: Urine, Clean Catch
Specimen Type: Urine
Specimen Date: 01/13/20241926
Result Date: 01/17/2024 1436
Result Status: Final result
Abnormal: Yes
Resulting Lab: LABORATORY [facility]
[address]
[place] [id number]

CULTURE

>100,000 colonies/mL Escherichia coli (Abnormal)

10,000 to 100,000 colonies/mL Streptococcus anginosus group (Abnormal)

SUSCEPTIBILITY

Escherichia coli
METHOD MICROBROTH
DILUTIONS

AMPICILLIN >=32 Resistant
AMPICILLIN/SULBACTAM 16 Intermediate
CEFAZOLIN <=4 Susceptible
CEFEPIME <=1 Susceptible
CEFOXITIN 16 Intermediate
CEFTRIAXONE <=1 Susceptible
CIPROFLOXACIN >=4 Resistant
[1]
GENTAMICIN <=1 Susceptible
LEVOFLOXACIN >=8 Resistant
[2]
NITROFURANTOIN <=16 Susceptible
PIPERACILLIN TAZOBACTAM <=4 Susceptible
TRIMETH/SULFAMETHOXAZOLE <=20 Susceptible

[1] Due to serious side effects, the FDA has advised against using
Ciprofloxacin to treat uncomplicated UTIs and respiratory tract infections
unless there are no alternative treatment options.

[2] Due to serious side effects, the FDA has advised against using
Levofloxacin to treat uncomplicated UTIs and respiratory tract infections
unless there are no alternative treatment options.

null Performing Location LABORATORY [facility] - [address] [facility] [address]
--- OUTSIDE RECORDS SUMMARY | 2024-02-01 02:47 | External Medical Summary | Summary of Care ---
Author Name Unknown Organization [facility] Address [address] [place] [address] Phone [phone] Care Team Providers Care Lingo Cleaner Name Role Phone Unavailable Primary Care Provider Unavailabl e Reason for Visit * Reason Comments Dysuria Encounter Details Date Type Department Care Team (Late st Contact Info) Description 01/13/2024 7:20 PM EDT [facility] [address] [place] [address] Kristopher Ricks PA-C [address] [place] [address] UTI symptoms* Allergies Active Allergy Reactions Criticality Noted Date Comments Latex 11/21/2004 rash documented as of this encounter (statuses as of 01/14/2024) Medications Medication Sig Dispensed Refills Start Date End Date Status LISINOPRIL 2.5 MG PO TABS One pill by mouth once a day 30 11 09/10/2009 Active CALCITRIOL 0.25 MCG PO CAPS 1 CAPSULE DAILY 0 09/10/2009 Active nitrofurantoin (MACRODANTIN) 100 MG Capsule One daily Active documented as of this encounter (statuses as of 01/14/2024) Active Problems Problem Noted Date Diagnosed Date ADVANCE DIRECTIVE INFORMATION 11/21/2004 Overview: Not applicable (under age of 18) Hydronephrosis 03/23/2003 URIN TRACT INFECTION NOS 03/23/2003 Short stature 03/23/2003 documented as of this encounter (statuses as of 01/14/2024) Immunizations Name Administration Dates Next Due H1N1 [...] on file documented as of this encounter Last Filed Vital Signs Vital Sign Reading Time Taken Comments Blood Pressure 131/97 01/13/2024 7:30 PM EDT Pulse 110 01/13/2024 7:30 PM EDT Temperature 36.3 C (97.4 F) 01/13/2024 7:30 PM ED T Respiratory Rate 18 01/13/2024 7:30 PM EDT Oxygen Saturation 88% 01/13/2024 7:30 PM EDT Inhaled Oxygen Concentration - - Weight - - Height - - Body Mass Index - - documented in this encounter Patient Instructions * Patient Instructions* Kristopher Ricks PA-C - 01/13/2024 7:49 PM EDT GO DIRECTLY FROM HERE TO [facility] (PATIENT'S CHOICE) documented in this encounter Progress Notes * Kristopher Ricks PA-C - 01/13/2024 7:27 PM EDT Subjective: Ash Neville is a 33 year old male. 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 NO Hx of LOW SpO2 LEVELS; LAST SpO2 ON RECORD 07/2023 AND 95% All other systems reviewed and are negative. Patient Active Problem List Diagnosis Hydronephrosis URIN TRACT INFECTION NOS Short stature ADVANCE DIRECTIVE INFORMATION Current Outpatient Medications Medication Sig Dispense Refill LISINOPRIL 2.5 MG PO TABS One pill by mouth once a day 30 11 CALCITRIOL 0.25 MCG PO CAPS 1 CAPSULE DAILY 0 nitrofurantoin (MACRODANTIN) 100 MG Capsule One daily No current facility-administered medications for this visit. Review of patient's allergies indicates: Allergen Reactions Latex rash OBJECTIVE: BP 131/97 | Pulse 110 | Temp 36.3 C (97.4 F) | Resp 18 | SpO2 88% Review of Systems: See HPI. All other systems reviewed and are negative. PHYSICAL EXAM: General: alert, healthy, and no distress; NO DISTRESS, BUT CHRONICALLY ILL APPEARANCE. Head: Normocephalic, No masses, lesions, tenderness or abnormalities Eye Exam: PERRLA, extraocular movements intact, conjunctiva are pink and non- injected, sclera clear Heart: regular rate & rhythm, no murmur, and no gallops Lungs: chest symmetric with normal AP diameter, no chest deformities noted, no chest wall tenderness, lungs clear to auscultation; NO WHEEZE; NO RHONCHI USED 3 DIFFERENT SpO2 DEVICES AND RANGED FROM 86-90% ON ROOM AIR AT REST AND HR OF @100; (TESTED ONSELF AND 98% AND 67%)WITH SHORT WALK SpO2 DROPPED TO 84% AND HR NISSA TO 136; PATIENT DENIES FATIGUE, SOB, OR CP. Neuro Exam: alert & oriented x 3 with fluent speech, no focal motor/sensory deficits, gait normal, reflexes normal and symmetric Skin: skin color MILDLY YELLOWISH, texture, turgor are normal, no rashes or significant lesions ASSESSMENT/PLAN: PATIENT'S PREFERS [facility] EVEN THOUGH THEY ARE AWARE THEY ARE NOT AN ADMITTING FACILITY SHOULD THATBE THE NEED. 19:45 - CALLED [facility] AND GAVE REPORT TO EDP. UTI symptoms (Primary) - URINALYSIS, POINT OF CARE (ENTER/EDIT) - CULTURE, URINE, QUANTITATIVE; Future; Expected date: 01/13/2024 - CULTURE, URINE, QUANTITATIVE Kristopher Ricks PA-C 01/13/24 documented in this encounter Nursing Notes * Fiorella Torres RN - 01/13/2024 7:30 PM EDT Patient states back pain with foul smelling urine documented in this encounter Plan of Treatment Pending Results Name Type Priority Associated Diagnoses Date /Time CULTURE, URINE, QUANTITATIVE Lab Routine UTI symptoms 01/13/2024 7:27 PM EDT Scheduled Orders Name Type Priority Associated Diagnoses Orde r Schedule CULTURE, URINE, QUANTITATIVE Lab Routine UTI symptoms Expected: 01/13/2024, Expires: 01/12/2025 Health Maintenance Due Date Last Done Comments Depression Screening 2002 HIV Screening 2005 Hepatitis C Screening 2008 DTaP,Tdap,and Td Vaccines (6 - Td or Tdap) 02/16/2015 [...] Not on filedocumented as of this encounter Procedures Procedure Name Priority Date/Time Associated Diagnosis Comments URINALYSIS, POINT OF CARE (ENTER/EDIT) Routine 01/13/2024 7:47 PM EDT UTI symptoms documented in this encounter Results * (ABNORMAL) URINALYSIS, POINT OF CARE (ENTER/EDIT) (01/13/2024 7:47 PM EDT) Color, Urine Dark Yellow Yellow or Light Yellow Clarity, Urine Turbid Clear Glucose, Urine Negative Negative mg/dL Bilirubin, Urine Negative Negative Ketone, Urine Negative Negative mg/dL Specific [place], Urine 1.030 1.003 - 1.030 Blood, Urine Moderate Negative pH, Urine 7.0 5.0 - 7.5 units Protein, Urine >=300 Negative mg/dL Urobilinogen, Urine 0.2 0.2 - 1.0 mg/dL Nitrite, Urine Negative Negative Esterase, Urine Trace Negative Urine 01/13/2024 7:47 PM EDT Kristopher Ricks PA-C LAB POINT OF CA RE TEST ENTER/EDIT ORDERABLES documented in this encounter Visit Diagnoses Diagnosis UTI symptoms- Primary Other symptoms involving urinary system documented in this encounter"
--- OUTSIDE RECORDS SUMMARY | 2024-02-01 02:47 | External Medical Summary ---
Author Name Unknown Address Unknown Organization R4H:[facility] [address] [place] [address] Laboratory Report Ordering Provider Test Date Status YE TRUJILLO 01/13/2024 20:45:00 Final Observation Date Value Abnormality Reference (Units ) Status Glucose 01/13/2024 21:14 102 Above high normal 70-99 (mg/dL) Final BUN 01/13/2024 21:14 29 Above high normal 7-18 (mg/dL) Final Creatinine 01/13/2024 21:14 2.13 Above high normal 0.60 -1.30 (mg/dL) Final eGFR 01/13/2024 21:14 41 Below low normal >59 (m L/min/1.73m2) Final eGFR = 142 X [min(Scr/k,1)]* *a [max(Scr/k,1)-1.200x0.9938age X 1.012 [if female] Where Scr is serum creatinine; k is 0.7 for females and 0.9 males; a is -0.241 for females and -0.302 for males; min indicates the minimum of Scr/k or 1, max indicates the maximum of Scr/k or 1 Sodium 01/13/2024 21:14 138 136-145 (mmol /L) Final Potassium 01/13/2024 21:14 3.3 Below low normal 3.6-5. 0 (mmol/L) Final Chloride 01/13/2024 21:14 108 101-111 (mmol /L) Final CO2 01/13/2024 21:14 16 Below low normal 21-31 (mmol/L) Final Anion Gap 01/13/2024 21:14 17 Above high normal 6-16 (mmol/L) Final Calcium 01/13/2024 21:14 9.1 8.4-10.5 (mg/ dL) Final Total Protein 01/13/2024 21:14 7.8 6.0-8.3 ( g/dL) Final Albumin 01/13/2024 21:14 3.8 3.2-5.5 (g/dL ) Final Bilirubin, Total 01/13/2024 21:14 1.0 0.2-1. 0 (mg/dL) Final AST 01/13/2024 21:14 14 10-42 (U/L) F inal ALT 01/13/2024 21:14 13 10-60 (U/L) F inal Alkaline Phosphatase 01/13/2024 21:14 94 42 -121 (U/L) Final Performing Location [facility] [address] [place], [place] [address]
--- OUTSIDE RECORDS SUMMARY | 2024-02-01 02:47 | External Medical Summary ---
Author Name Unknown Address Unknown Organization R4LH:[facility] [address] [place] [place] [address] Laboratory Report Ordering Provider Test Date Status YE TRUJILLO 01/13/2024 20:45:00 Final Observation Date Value Abnormality Reference (Units ) Status High Sensitivity Troponin I 01/13/2024 23:05 <2 <18 (ng/L) Final [employer] hs-Tro ponin I assay Performing Location [facility] [address] [place] [address]
--- OUTSIDE RECORDS SUMMARY | 2024-02-01 02:47 | External Medical Summary | Summary of Care ---
Author Name Unknown Organization [facility] Address [address] [facility] [place] [address] Phone [phone] Care Team Providers Care Representative Personal Service Name Role Phone Unavailable Primary Care Provider Unavailabl e Reason for Visit * Reason Comments Other Kidney infection Encounter Details Date Type Department Care Team (Late st Contact Info) Description 08/09/2023 6:10 PM EDT [facility] [address] [place] [address] Kaitlin Whitfield PA-C [address] [place] [phone] Urinary tract infection with hematuria, site unspecified* Allergies Active Allergy Reactions Criticality Noted Date Comments Latex 11/21/2004 rash documented as of this encounter (statuses as of 08/09/2023) Medications Medication Sig Dispensed Refills Start Date End Date Status LISINOPRIL 2.5 MG PO TABS One pill by mouth once a day 30 11 09/10/2009 Active CALCITRIOL 0.25 MCG PO CAPS 1 CAPSULE DAILY 0 09/10/2009 Active nitrofurantoin (MACRODANTIN) 100 MG Capsule One daily 0 Active Cefuroxime Axetil 250 MG Oral Tablet (Ceftin)Indications: Urinary tract infection with hematuria, site unspecified Take 1 Tablet by mouth in the morning and 1 Tablet before bedtime. Do all this for 10 days. 20 Tablet 0 08/09/2023 08/19/2023 Active documented as of this encounter (statuses as of 08/09/2023) Active Problems Problem Noted Date Diagnosed Date ADVANCE DIRECTIVE INFORMATION 11/21/2004 Overview: Not applicable (under age of 18) Hydronephrosis 03/23/2003 URIN TRACT INFECTION NOS 03/23/2003 Short stature 03/23/2003 documented as of this encounter (statuses as of 08/09/2023) Immunizations Name Administration Dates Next Due H1N1 2008 Influenza, IM 09/10/2009(Deferred: Pat ient Refused) Hepatitis B, 0-19 yrs 08/05/2005 Meningococcal Conjugate Vacc ine (Menactra/Menveo) 05/06/2009 documented as of this encounter Social History Tobacco Use Types Packs/Day Years Used Date Smoking Tobacco: Never Smokeless Tobacco: Never Alcohol Use Standard Drinks/Week Comments No 0 (1 standard drink = 0.6 oz pur e alcohol) Sex and Gender Information Value Date Recorded Sex Assigned at Not on file Gender Identity Not on file Sexual Orientation Not on file Job Start Date Occupation Industry Not on file Not on file Not on file documented as of this encounter Last Filed Vital Signs Vital Sign Reading Time Taken Comments Blood Pressure 134/96 08/09/2023 6:30 PM EDT Pulse 90 08/09/2023 6:30 PM EDT Temperature 37.1 C (98.8 F) 08/09/2023 6:30 PM ED T Respiratory Rate 18 08/09/2023 6:30 PM EDT Oxygen Saturation 95% 08/09/2023 6:30 PM EDT Inhaled Oxygen Concentration - - Weight - - Height - - Body Mass Index - - documented in this encounter Progress Notes * Kaitlin Whitfield PA-C - 08/09/2023 6:38 PM EDT Subjective: Ash Neville is a 32 year old male. Chief Complaint Patient presents with Other Kidney infection HPI: Here today with UTI symptoms x 1 week. Notes lower abd pressure, bilateral low back pain, urine odor and dark colored urine. Denies fever, chills, nausea or vomiting. He has CKD and vesicoureteral reflux. Multiple kidney and bladder surgeries. Frequent UTIs, every 6 months. Patient Active Problem List Diagnosis Code Hydronephrosis N13.30 URIN TRACT INFECTION NOS N39.0 Short stature R62.52 ADVANCE DIRECTIVE INFORMATION Current Outpatient Medications Medication Sig Dispense Refill CALCITRIOL 0.25 MCG PO CAPS 1 CAPSULE DAILY 0 Cefuroxime Axetil 250 MG Oral Tablet (Ceftin) Take 1 Tablet by mouth in the morning and 1 Tablet before bedtime. Do all this for 10 days. 20 Tablet 0 LISINOPRIL 2.5 MG PO TABS One pill by mouth once a day 30 11 nitrofurantoin (MACRODANTIN) 100 MG Capsule One daily No current facility-administered medications for this visit. Review of patient's allergies indicates: Allergen Reactions Latex rash ROS: all areas negative except as mentioned under HPI Physical Exam: BP 134/96 | Pulse 90 | Temp 37.1 C (98.8 F) (Tympanic) | Resp 18 | SpO2 95% Physical Exam Vitals and nursing note reviewed. Constitutional: General: He is not in acute distress. Appearance: Normal appearance. He is not ill-appearing. HENT: Head: Normocephalic and atraumatic. Nose: Nose normal. Mouth/Throat: Mouth: Mucous membranes are moist. Pharynx: Oropharynx is clear. Eyes: Extraocular Movements: Extraocular movements intact. Conjunctiva/sclera: Conjunctivae normal. Pupils: Pupils are equal, round, and reactive to light. Cardiovascular: Rate and Rhythm: Normal rate and regular rhythm. Heart sounds: Normal heart sounds. Pulmonary: Effort: Pulmonary effort is normal. No respiratory distress. Breath sounds: Normal breath sounds. No wheezing, rhonchi or rales. Abdominal: Tenderness: There is no right CVA tenderness or left CVA tenderness. Skin: General: Skin is warm and dry. Neurological: Mental Status: He is alert and oriented to person, place, and time. Psychiatric: Mood and Affect: Mood normal. Behavior: Behavior normal. Assessment/Plan: Ash was seen today for other. Diagnoses and all orders for this visit: Urinary tract infection with hematuria, site unspecified - URINALYSIS, POINT OF CARE (ENTER/EDIT) - CULTURE, URINE, QUANTITATIVE - Cefuroxime Axetil 250 MG Oral Tablet (Ceftin); Take 1 Tablet by mouth in the morning and 1 Tabletbefore bedtime. Do all this for 10 days. Supportive care discussed. Strict return/ED precautions given, pt agreeable to plan. ROBERT Olson [facility] [address] [place] [address] documented in this encounter Nursing Notes * Yuli Finney LPN - 08/09/2023 6:28 PM EDT Nursing Notes: CC: Chief Complaint Patient presents with Other Kidney infection Brief Hx: Patient is here for kidney infection. Patient stated he gets them every 6 months. Patientis having flank pain, discolored urine, rancid smell, some days he's nauseated from it. Patient is stage 3 or 4 of renal failure he's had kidney issues since he was 5 Duration/Onset: week OTC meds: tylenol every 4 hours. Last dose was at 1230 this afternoon. Accompanied by: self documented in this encounter Plan of Treatment Pending Results Name Type Priority Associated Diagnoses Date /Time CULTURE, URINE, QUANTITATIVE Lab Routine Urinary tract infection with hematuria, site unspecified 08/09/2023 6:27 PM EDT Health Maintenance Due Date Last Done Comments Depression Screening 2002 HIV Screening 2005 Hepatitis C Screening 2008 DTaP,Tdap,and Td Vaccines (6 - Td or Tdap) 02/16/2015 02/16/2005, 06/18/1992, 11/13/1991, Additional history exists COVID-19 Vaccine (2022-24 season) 2023 Influenza Vaccine (FLU shot) (#1) 2023 Hepatitis B Completed 08/05/2005, 02/22, 02/16/2005 MENINGOCOCCAL (MENACTRA/MENVEO) Completed 05/06/2009 GARDASIL-HPV IMMUNIZATION SERIES Aged Out No longer eligible based on [...] Comments URINALYSIS, POINT OF CARE (ENTER/EDIT) Routine 08/09/2023 Urinary tract infection with hematuria, site unspecified documented in this encounter Results * (ABNORMAL) URINALYSIS, POINT OF CARE (ENTER/EDIT) (08/09/2023) Color, Urine Brown Yellow or Light Yellow Clarity, Urine Turbid Clear Glucose, Urine Negative Negative mg/dL Bilirubin, Urine Negative Negative Ketone, Urine Negative Negative mg/dL Specific [place], Urine 1.010 1.003 - 1.030 Blood, Urine Large Negative pH, Urine 6.5 5.0 - 7.5 units Protein, Urine 30 Negative mg/dL Urobilinogen, Urine 0.2 0.2 - 1.0 mg/dL Nitrite, Urine Negative Negative Esterase, Urine Large Negative Urine 08/09/2023 Kaitlin Whitfield PA-C LAB POINT OF CA RE TEST ENTER/EDIT ORDERABLES documented in this encounter Visit Diagnoses Diagnosis Urinary tract infection with hematuria, site unspecified- Primary documented in this encounter"
--- OUTSIDE RECORDS SUMMARY | 2024-02-01 02:47 | External Medical Summary ---
Author Name Unknown Address Unknown Organization R4LH:[facility] [address] [place] [address] Laboratory Report Ordering Provider Test Date Status YE TRUJILLO 01/13/2024 20:22:00 Final Observation Date Value Abnormality Reference (Units ) Status UA Culture Screen 01/13/2024 20:49 Positive screen. Culture to be done. Final Urine Clarity 01/13/2024 20:49 Clear CLER Final Urine Color 01/13/2024 20:49 Yellow YELL Final Specific [place], Urine 01/13/2024 20:49 1.020 1.000-1.025 Final Urine pH 01/13/2024 20:49 6.5 5.0-8.0 Final Urine Leukocyte Esterase 01/13/2024 20:49 Moderate Abnormal NEGAT Final Urine Nitrites 01/13/2024 20:49 Negative NEGAT Final Protein, Urine 01/13/2024 20:49 Moderate Abnormal NEGAT (mg/dL) Final Glucose, Urine 01/13/2024 20:49 Negative NEGAT (mg/dL) Final Urine Ketones 01/13/2024 20:49 Negative NEGAT Final Urine Urobilinogen 01/13/2024 20:49 0.2 0.0-1.0 (mg/dL) Final Urine Bilirubin 01/13/2024 20:49 Negative NEGAT Final Blood, Urine 01/13/2024 20:49 Large Abnormal NEGAT Final Urine Source 01/13/2024 20:22 Straight Cath Final Performing Location [facility] [address] [place] [address]
[2024-02-01] MEDS ORDERED: ONDANSETRON INJ 2 MG/ML 2 ML VIAL IV PRN (03:06)
[2024-02-01] MEDS ORDERED: POLYETHYLENE (MIRALAX) 17 GM PACK PO PRN (03:06)
[2024-02-01] MEDS ORDERED: ACETAMINOPHEN 325 MG TAB PO PRN (03:06)
[2024-02-01] MEDS: SODIUM CHLORIDE 0.9% 1,000 ML IV SCH (03:40)
[2024-02-01] MEDS: HEPARIN SOD 5,000 UNIT/0.5 ML VIAL SQ SCH (08:12)
[2024-02-01 10:03] LABS: Allen Test Pos (Pos); Base Excess ABG -14.4 mEq/L (-9-1.8); HCO3 ABG 9 mmol/L (19-24); Oxygen Saturation ABG 96.3 % (90-95); PCO2 ABG 16 mmHg (35-46); PO2 ABG 121 mmHg (80-95); pH ABG 7.34 (7.35-7.45)
--- NOTE | 2024-02-01 11:58 | Electrocardiogram Report ---
Test Reason : Blood Pressure : */* mmHG Vent. Rate : 83 BPM Atrial Rate : 83 BPM P-R Int : 192 ms QRS Dur : 86 ms QT Int : 410 ms P-R-T Axes : 57 80 58 degrees QTcB Int : 481 ms Normal sinus rhythm Prolonged QT Abnormal ECG No previous ECGs available Confirmed by Jamal Guan ([id number]) on 02/01/2024 11:58:15 AM Referred By: REFERRED SELF Confirmed By: Jamal Guan
--- NOTE | 2024-02-01 13:10 | Nephrology Consultation ---
Date of Consultation February 01, 2024 Assessment & Plan (1) Acute kidney injury superimposed on chronic kidney disease: baseline creatinine 2 per report and p/w creat 2.5; possible also though that this is renal progression, since baseline is from 2019. >repeat labs from today have not been drawn yet > note that given the hour Dr Loya had opeted to move these to tomorrow am -get am labs per hospitalist plans >>also needs bmp today to assess acid base status and renal recovery if any -no indication for dialysis discussion -he is considering switching at least some OP nephro care to this area from [facility] > whether to [facility] or [facility] care coordinated w/ Dr Loya re labs today and possible fluid change; we are in agreeement (2) Hydroureteronephrosis: need to obtain OP studies to verify if this is subacute or chronic; recommend obtaining OP urology records (3) Metabolic acidosis: AG metabolic acidosis >>needs updated labs from today>>could be combo of renal failure and changes from CIC/urine pouch and now from aggressive NS admin > may change IVF depending on results History of Present Illness Reason for Consultation: metabolic acidosis, CKD Requesting Physician: Dr Costello Attending Physician: Silvino Loya MD History of Present Illness 33 y/o M whom I'm asked to see for CKD and metabolic acidosis was admitted early this AM for a complicated urinary tract infection after presenting with nausea, back pain, dark foul smelling urine, and concern for failing OP abtx. PMH includes CKD with reported OP baseline creatinine 2, vesicoureteral reflux with multiple kidney and bladder surgeries since age 5 including bladder enlargement x 3 and BL ureteral reimplantation w/ total of 19 surgeries and currently on CIC 4-5 times daily through R lower abdominal stoma, recurrent UTIs. Patient's care is usually through [facility], where he completed 10 days of abtx for UTI about 3-4 days back but not w/ rocephin which usually works best for UTI. Baseline creatinine is unclear/unable to be readily accessed but appears to be about 2 per our records adn pt report. malaise and N from admission improved/resolved, as has back pain. foul smelling dark urine persists. no f/c/rigors, no CHO or uri sx. no abd pain or emesis or diarrhea/constipation. no edema. no rash. He was started on NS at 75 mL hourly after 3L boluses and ceftriaxone. Urine cx pending. Allergies Allergy/AdvReac Type Severity Reaction Status Date / Time latex Allergy Unknown ? Verified 02/01/24 11:22 Home Medications Medication Instructions Recorded Confirmed Type No Known Home Medications 02/01/24 02/01/24 History Patient History Medical History CKD (chronic kidney disease) Surgical History History of urologic surgery Family History Brother Congenital kidney disease Social History Smoking Status: Never smoker Hx Alcohol Use: No Hx Substance Use: No Preferred Language: Salvadorean Communication Ability: Effective Press Assistant Required: No Beliefs That Will Affect Care: None Current Living Situation: Spouse Other Information That Helps Us Care for You: No Feels Safe at Home: Yes Safety Concerns: Feels Safe At This Time Review of Systems 2 Review of Systems: All systems reviewed & are unremarkable except as noted in HPI & below Physical Exam 2 Constitutional: well developed, well nourished and cooperative; no acute distress and + not average body habitus (smaller frame/build) Respiratory: normal respiratory effort; no cough Auscultation: lungs clear to auscultation bilaterally Cardiovascular: Rate/Rhythm: regular rate and regular rhythm Extremities: n o edema Gastrointestinal (Abdomen): Inspection/Auscultation: + high-pitched sounds; abdomen not distended and no abdominal edema no flank TTP Neurologic: renae, fluent speech Psychiatric: A+Ox3, euthymic affect Results & Data Vital Signs (Past 12 Hours) Vital Signs Temp Pulse Pulse Resp BP BP Pulse Ox 02/01/24 11:13 36.6 C 75 18 111/71 94 02/01/24 08:15 02/01/24 07:58 36.7 C 78 16 102/64 93 02/01/24 07:29 73 02/01/24 03:15 36.3 C L 78 18 110/76 95 09/10/24 02:56 82 02/01/24 02:00 81 16 109/76 95 02/01/24 01:30 85 18 102/71 95 O2 Del Method 02/01/24 11:13 Room Air 02/01/24 08:15 Room Air 02/01/24 07:58 Room Air 02/01/24 07:29 02/01/24 03:15 Room Air 02/01/24 02:56 02/01/24 02:00 02/01/24 01:30 Laboratory Results 01/31/24 22:33 01/31/24 22:33 Brown turbid urine 8.5; 3+ prot/blood/LE; 4+ bacter, +gran casts Diagnostic Findings CT a/p non con The kidneys are enlarged. There are bilateral renal calcifications. There is marked renal cortical thinning. There is marked bilateral hydronephrosis. There is marked hydroureters. The mid portions of the ureters unite into a single ureter. No obstructing calculus is noted.. Urinary bladder is distended. There is asymmetric thickening of the urinary bladder wall. There appears to be a ostomy site in the right lower quadrant extending from the urinary bladder. There are some enlarged retroperitoneal lymph nodes.
--- NOTE | 2024-02-01 13:46 | Communication Note ---
Date of Service: February 01, 2024 Patient was seen and examined at bedside. 30-year-old male with PMH of CKD, vesicoureteral reflux with multiple kidney and bladder surgeries, right and left ureters connected, had total of 19 surgeries, currently has a stoma in the right lower abdomen from which he straight caths 4- 5 times daily, has history of recurrent UTI presented secondary to foul-smelling urine since last 5 days ago [employer]. Of note, patient was recently treated for UTI with 10-day course which he completed about 7 days ago [employer]. He denies any febrile illness. He is being managed for the following: Complicated UTI: History of vesicoureteral reflux and multiple surgeries for kidney and bladder. Right and left ureters connected, has right lower abdomen stoma which he uses for straight cathing 4-5 times daily. Started on Rocephin, continue, follow-up urine culture. RAGHAVENDRA over CKD stage III, metabolic acidosis: Baseline creatinine around 2, admitting creatinine of 2.46, continue with IV fluid. Labs in AM. request for OP records placed. DVT prophylaxis: Heparin subcu Full code For detailed information of the patient, refer to today's H&P note.
[2024-02-01 15:47] LABS: BUN Creatinine Ratio 15.8 (10-20); Calcium 8.2 mg/dl (8.6-10.3); Creatinine Clr Calc Pharmacy 41.5 ml/min; Est GFR (African American) 50.6 ml/min; Est GFR (Non-African American) 43.6 ml/min; Potassium 3.2 mmol/L (3.5-5.1)
[2024-02-01] MEDS: POTASSIUM CHLORIDE CRTAB 20 MEQ TABCR PO STA (17:36)
[2024-02-01] MEDS: cefTRIAXone SODIUM 2,000 MG/50 ML BAG IV SCH (21:03)
[2024-02-02 06:43] LABS: BUN Creatinine Ratio 14.4 (10-20); Creatinine Clr Calc Pharmacy 45.1 ml/min; Est GFR (African American) 56.1 ml/min; Est GFR (Non-African American) 48.4 ml/min; Phosphorus 2.9 mg/dl (2.5-4.9); Potassium 3.3 mmol/L (3.5-5.1)
[2024-02-02 07:31] LABS: Hematocrit (blood only) 37.6 % (42.0-52.0); Hemoglobin 12.6 g/dl (14.0-18.0); Mean Corpuscular Hemoglobin 29.1 pg (25.0-34.0); Mean Corpuscular Hgb Conc 33.5 g/dL (32.0-36.0); Mean Corpuscular Volume 86.8 fL (80.0-100.0); Mean Platelet Volume 10.1 fL (9.4-12.4); Platelet Count 268 K/uL (130-400); RDW Coefficient of Variation 14.2 % (11.5-14.5); RDW Standard Deviation 44.9 fL (36.4-46.3); Red Blood Count 4.33 M/uL (4.70-6.10); White Blood Count 6.84 K/ul (4.8-10.8)
--- NOTE | 2024-02-02 10:29 | Hospitalist Progress Note ---
Date of Service February 02, 2024 Assessment & Plan (1) Complicated urinary tract infection: Plan: 33-year-old male with past med history significant for chronic kidney disease, vesicoureteral reflux with multiple kidney and bladder surgeries started age 5 had bladder enlarged x3 , right and left ureters connected,had total of 19 surgeries, currently has stoma is right lower abdomen from which he straight caths 4-5 times daily and has history of recurrent UTIs comes because of urinary symptoms. Patient generally goes to [facility]. Recently was treated for UTI completed antibiotic about a week ago. Complicated urinary tract infection History of vesicoureteral reflux and multiple surgeries for kidney and bladder Right and left ureters connected CT scan showing marked bilateral hydronephrosis and hydroureter's. No obstructing calculus noted bladder is distended Patient straight caths from ostomy in the right lower quadrant Urine culture growing gram-negative bacilli Continue on Ceftriaxone; will awaiting final C and S RAGHAVENDRA/CKD stage III Metabolic acidosis Presented with Creatinine of 2.4, downtrended to 1.8(baseline) bicarbonate of 12; non-anion gap metabolic acidosis Appreciate nephrology input DVT prophylaxis Heparin subcu Disposition Med/telemetry Full code Please note the above document was generated using voice recognition software. It may contain grammatical, syntax or spelling errors. Any formal questions or concerns about the content, text or information contained within the body of this dictation should be directly addressed to the provider for clarification Admission and Anticipated Discharge Date Admission Date: February 01, 2024 Subjective Patient seen and examined at bedside. Comfortable; not in distress. Denies fever, chills, chest pain, shortness of breath, abdominal pain or urinary symptoms. No significant overnight events Reports that he is feeling better overall. Review of Systems Review of Systems: All systems reviewed & are unremarkable except as noted in Subjective Physical Exam Physical Exam: General-Not in distress Head- atraumatic Eyes- PERRL. ENT- oropharynx clear Neck- supple, no JVD. Lungs- clear to auscultation no wheezing or crackles Heart- regular rate and rhythm; no murmur, no gallop. Abdomen- normal bowel sounds, soft, nontender, no distension Extremities- no pretibial edema, no erythema seen Neuro- alert, oriented PERRL, EOMI; no facial palsy; no dysarthria; moves extremities Results & Data Results & Data Vital Signs (Past 12 Hours) Vital Signs Temp Pulse Pulse Resp BP Pulse Ox O2 Del Method 02/02/24 08:09 77 02/02/24 04:06 37 C 66 16 100/63 95 Room Air 02/02/24 00:35 37.1 C 72 16 102/66 95 Room Air 02/01/24 22:50 77
[2024-02-02] MEDS: POTASSIUM CHLORIDE 20 MEQ in DEXTROSE 5% 500 ML IV SCH (13:31)
[2024-02-02] MEDS: POTASSIUM CHLORIDE CRTAB 20 MEQ TABCR PO SCH (13:31)
--- NOTE | 2024-02-02 17:32 | Nephrology Progress Note ---
Date of Service February 02, 2024 Assessment & Plan (1) Acute kidney injury superimposed on chronic kidney disease: Plan: baseline creatinine 2 per report and p/w creat 2.5; possible also though that this is renal progression, since baseline is from 2019. pt believes his creatinine is about 2 at baseline. OP data from 2021 OV w/ [facility] marzipan molder (note not available) showed creat 2.3, eGFR 41; cl 108, bic 18. >>apparently prerenal RAGHAVENDRA on CKD 3B >> resolved -he wishes to switch at least some OP nephro care to this area from [facility] > whether to [facility] or [place] (2) Hydroureteronephrosis: Plan: need to obtain OP studies to verify if this is subacute or chronic; recommend obtaining OP urology records; no records in [employer] system (3) Metabolic acidosis: Plan: AG metabolic acidosis has changed as of yesterday and including today to non AG mtb acidosis, likely relates to reconstructed bladder w/ colon tissue, ureter/stoma made from appendix >>could be d/t combo of renal failure and heather chloride metabolism changes from CIC/appendiceal urine pouch and from bladder reconstructions >> start him on K and bicarb supplements; 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 ur cx still w/ GNR. no further malaise or N or flank pain. urine clear now Review of Systems 2 Review of Systems: All systems reviewed & are unremarkable except as noted in Subjective Physical Exam 2 Constitutional: well developed, well nourished and cooperative; no acute distress and + not average body habitus (smaller frame/build) Respiratory: normal respiratory effort; no cough Auscultation: lungs clear to auscultation bilaterally Cardiovascular: Rate/Rhythm: regular rate and regular rhythm Extremities: n o edema Gastrointestinal (Abdomen): Inspection/Auscultation: abdomen not distended and no abdominal edema Percussion/Palpation: abdomen nontender (no CVA ttp) Psychiatric: A+Ox3, euthymic affect Results & Data Vital Signs (Past 12 Hours) Vital Signs Temp Pulse Pulse Resp BP Pulse Ox O2 Del Method 02/02/24 16:52 80 02/02/24 15:06 36.7 C 78 18 115/80 95 Room Air 02/02/24 11:34 36.7 C 67 18 109/75 94 Room Air 02/02/24 08:09 77 02/02/24 08:00 36.6 C 67 18 111/69 94 Room Air Laboratory Results 02/02/24 05:28 02/02/24 05:28
[2024-02-02] MEDS: SODIUM BICARBONATE 8.4% 150 MEQ, POTASSIUM CHLORIDE 40 MEQ in DEXTROSE 5% 1,000 ML IV SCH (18:32)
[2024-02-03 04:55] LABS: Basophils # (auto) 0.08 K/uL (0.00-0.20); Basophils % (auto) 1.3 %; Eosinophils # (auto) 0.21 K/uL (0.00-0.50); Eosinophils % (auto) 3.5 %; Hematocrit (blood only) 34.9 % (42.0-52.0); Hemoglobin 11.9 g/dl (14.0-18.0); Immature Granulocytes # (auto) 0.02 K/uL (0.01-0.20); Immature Granulocytes % (auto) 0.3 %; Lymphocytes # (auto) 1.94 K/uL (1.20-3.40); Lymphocytes % (auto) 32.5 %; Mean Corpuscular Hemoglobin 29.4 pg (25.0-34.0); Mean Corpuscular Hgb Conc 34.1 g/dL (32.0-36.0); Mean Corpuscular Volume 86.2 fL (80.0-100.0); Monocytes # (auto) 0.69 K/uL (0.11-0.59); Monocytes % (auto) 11.6 %; Neutrophils # (auto) 3.03 K/uL (1.40-6.50); Neutrophils % (auto) 50.8 %; Platelet Count 224 K/uL (130-400); RDW Coefficient of Variation 14.6 % (11.5-14.5); RDW Standard Deviation 46.4 fL (36.4-46.3); Red Blood Count 4.05 M/uL (4.70-6.10); White Blood Count 5.97 K/ul (4.8-10.8)
[2024-02-03 05:11] LABS: BUN Creatinine Ratio 12.6 (10-20); Calcium 7.9 mg/dl (8.6-10.3); Creatinine Clr Calc Pharmacy 48.7 ml/min; Est GFR (African American) 61.4 ml/min; Potassium 3.4 mmol/L (3.5-5.1)
[2024-02-03 08:10] VITALS: RESP 18
--- NOTE | 2024-02-03 10:07 | Nephrology Progress Note ---
Date of Service February 03, 2024 Assessment & Plan (1) Acute kidney injury superimposed on chronic kidney disease: Plan: prerenal stage 1 nonoliguric RAGHAVENDRA on CKD 3B, resolved. baseline creatinine 2 per report and p/w creat 2.5; possible also though that this is renal progression, since baseline is from 2019. pt believes his creatinine is about 2 at baseline. OP data from 2021 OV w/ [facility] electric motor repairer (note not available) showed creat 2.3, eGFR 41; cl 108, bic 18. -he wishes to switch at least some OP nephro care to this area from [facility] > whether to [facility] or [facility]; plans to cont to follow w/ [facility] as well but intermittnetly > will facilitate -no indication for KRISTAN/ARB NEPHRO D/C RECS: -d/c on K 20 mEq po bid and have ordered teaching about high K diet prior to d/c -needs hospital DC visit w/ any neph physician (though slight preference for Dr Young given his home address/work) Nishant Platt in 3-4 wks w/ BMP, ACR, UACM, PTH, 25 OHD, hgb, serum albumin, uric acid, urine electrolytes, urine uric acid, renal u/s to be done no more than 72 hrs before OV and to be ordered by neph nurse -pls also refer to [facility] urology for complex urologic history, chronic hydronephrosis and CIC for routine evaluation to establish care D/c recs above including medication and labs as well as discussion of d/c abtx conducted w/ Dr Bragg; we are in agreement (2) Hydroureteronephrosis: Plan: need to obtain OP studies to verify if this is subacute or chronic; recommend obtaining OP urology records; no records in [employer] system -f/u imaging as above (3) Metabolic acidosis: Plan: NAG metabolic acidosis improving slightly w/ fairly aggressive IV fluids/chloride-K repletion, likely relates to reconstructed bladder w/ colon tissue, ureter/stoma made from appendix suspect will 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 urine clear on self cath. no recurrent malaise, N, or flank pain. agrees he wants to est w/ [facility] nephro and urology. feeling improved overall. Review of Systems 2 Review of Systems: All systems reviewed & are unremarkable except as noted in Subjective Physical Exam 2 Constitutional: well developed (sitting up in chair on RA), well nourished and cooperative; no acute distress and + not average body habitus (smaller frame/build) Respiratory: normal respiratory effort; no cough Auscultation: lungs clear to auscultation bilaterally Cardiovascular: Rate/Rhythm: regular rate and regular rhythm Extremities: n o edema Gastrointestinal (Abdomen): Inspection/Auscultation: + high-pitched sounds; abdomen not distended and no abdominal edema Percussion/Palpation: abdomen nontender (no CVA ttp) Psychiatric: A+Ox3, euthymic affect Results & Data Vital Signs (Past 12 Hours) Vital Signs Temp Pulse Pulse Resp BP Pulse Ox O2 Del Method 02/03/24 08:30 Room Air 02/03/24 08:08 36.6 C 76 18 105/67 96 Room Air 02/03/24 07:00 69 02/03/24 03:03 36.7 C 75 17 96/60 L 96 Room Air 02/03/24 00:51 80 02/02/24 23:44 37 C 69 16 116/73 96 Room Air Laboratory Results 02/03/24 04:15 02/03/24 04:15
[2024-02-03 11:27] VITALS: BP 110/75; PULSE 66; TEMP 98.1; O2SAT 94
--- NOTE | 2024-02-03 11:34 | Discharge Summary ---
Date of Service February 03, 2024 Admission HPI Per Admitting Provider 33-year-old male with past med history significant for chronic kidney disease, vesicoureteral reflux with multiple kidney and bladder surgeries started age 5 had bladder enlarged x3 , right and left ureters connected,had total of 19 surgeries, currently has stoma is right lower abdomen from which he straight caths 4-5 times daily and has history of recurrent UTIs comes because of urinary symptoms. Patient generally goes to [facility]. Recently was treated for UTI completed antibiotic about a week ago. Mother is in the room. Usually Rocephin works best for him per mother .Mother thinks thinks he was given different antibiotics and his UTI is not getting cleared up and decided come to the our hospital. Yesterday was doing okay was eating and ambulating okay. Today has nausea and some back pain. And his urine urine has foul smelling and dark in color. Denies fevers. Denies headache. No runny nose or sore throat or cough. No chest pain or shortness of breath. No abdominal pain. Normal bowel movements. Hemodynamics are okay. States currently not taking any medications Past medical history. As mentioned above. Past surgical history. Multiple kidney and ureter and bladder surgeries. Social history. Denies smoking. Denies alcohol Use. Denies drug use. Family history. Brother has kidney reflux disease. Admission Exam Per Admitting Provider General-Not in distress Head- atraumatic Eyes- PERRL. ENT- oropharynx clear Neck- supple, no JVD. Lungs- clear to auscultation no wheezing or crackles Heart- regular rate and rhythm; no murmur, no gallop. Abdomen- normal bowel sounds, soft, nontender, no distension Extremities- no pretibial edema, no erythema seen Neuro- alert, oriented PERRL, EOMI; no facial palsy; no dysarthria; moves extremities Principal Diagnosis Complicated urinary tract infection RAGHAVENDRA on CKD Non-anion gap metabolic acidosis Discharge Exam General-Not in distress Head- atraumatic Eyes- PERRL. ENT- oropharynx clear Neck- supple, no JVD. Lungs- clear to auscultation no wheezing or crackles Heart- regular rate and rhythm; no murmur, no gallop. Abdomen- normal bowel sounds, soft, nontender, no distension. urostomy orifice without any discharge Extremities- no pretibial edema, no erythema seen Neuro- alert, oriented PERRL, EOMI; no facial palsy; no dysarthria; moves extremities Discharge Data Allergies Allergy/AdvReac Type Severity Reaction Status Date / Time latex Allergy Unknown ? Verified 02/01/24 11:22 Consultations 01/31/24 23:58 ED Decision to Admit Stat 02/01/24 03:06 Consult Nephrology Routine 02/01/24 13:48 HIM [Consult Health Information Management] Routine Ordered Studies 01/31/24 23:29 CT Abd and Pelvis [CT abd pelvis wo con] Stat Hospital Course (1) Complicated urinary tract infection: 33-year-old male with past med history significant for chronic kidney disease, vesicoureteral reflux with multiple kidney and bladder surgeries started age 5 had bladder enlarged x3 , right and left ureters connected,had total of 19 surgeries, currently has stoma is right lower abdomen from which he straight caths 4-5 times daily and has history of recurrent UTIs comes because of urinary symptoms. Patient generally goes to [facility]. Recently was treated for UTI completed antibiotic about a week ago. Complicated urinary tract infection History of vesicoureteral reflux and multiple surgeries for kidney and bladder Right and left ureters connected CT scan showing marked bilateral hydronephrosis and hydroureter's. No obstructing calculus noted bladder is distended Patient straight caths from ostomy in the right lower quadrant Urine culture growing E.coli;sensitive to ceftriaxone and Augmentin. Patient was treated with iv ceftriaxone during the hospitalization. At discharge, patient was feeling better; reports that urine is much clear. Placed on Augmentin at discharge. RAGHAVENDRA/CKD stage III Non-anion Gap Metabolic acidosis Presented with Creatinine of 2.4, downtrended to 1.67(baseline) bicarbonate of 12; non-anion gap metabolic acidosis Nephrology recommended KCl tablets at discharge. Nephrology to arrange follow up. Please note the above document was generated using voice recognition software. It may contain grammatical, syntax or spelling errors. Any formal questions or concerns about the content, text or information contained within the body of this dictation should be directly addressed to the provider for clarification Total Time Total Time Spent Total Time Spent (In Minutes): 34 Total Time Includes: Examination of the Patient, Discharge Planning, Medication Reconciliation, Communication With Other Providers and Other Discharge Plan Discharge Items Patient Disposition: Home - Self-Care Reason For Visit: UTI Discharge Diagnosis: Complicated UTI Activity: Resume your previous activity Non-emergency contact: Primary Care Provider Call non-emergency contact if: you have any medication questions and your symptoms worsen Follow-up/Referrals: Phuong Borrego MD, PhD [Physician] - (The Nephrology office will contact you regarding a follow up appointment and lab work.) Lucita Carbone PA-C [Primary Care Provider] - (Date & Time 02/08/2024 9:20 AM Provider Lucita Carbone PA-C [facility] ) Diet: Regular Addtl Attending Provider Instructions: You were admitted to the hospital with a urinary tract infection. You were treated with IV antibiotics during the hospitalization. You are prescribed Augmentin to be taken twice a day for next 5 days. You were evaluated by welding machine operator gas during the hospitalization for the kidney issues. They recommend you to be started on potassium supplement to be taken twice a day. They will set up follow-up appointment for you in next coming weeks. An appointment with your primary care doctor has been set up. Pending Studies at Discharge: No Stand-Alone Forms: [employer], Smoking Cessation Medications and DC Order Prescriptions: New potassium chloride 20 mEq tablet extended release 20 meq PO BID 21 Days Qty: 42 0RF amoxicillin-pot clavulanate 875-125 mg tablet 1 tab PO BID 5 Days Qty: 10 0RF Discharge Orders: Discharge Order (Routine); Ordered 02/03/24 Ordered By: Ke Bragg Admission Data Admit Date/Time: 02/01/24 01:09 Attending Provider: Ke Bragg Admit Provider: Jonathan Costello Primary Care Provider: Lucita Carbone Other Providers: Jonathan Costello; Phuong Borrego Other Interventions: Discharge Summary Assessment (RN) Last Done: 02/03/24 11:37
== END 2024-02-03 12:46 | disposition home or self-care (01) | DRG 690 ==
LOC: ED 21:59 → 2W 02-01 01:09 → SUATTDRO 02-01 01:09 → 2W 02-01 02:41

== ENCOUNTER 2024-11-21 19:26 | Observation (INO) ==
[2024-11-21] MEDS: ONDANSETRON INJ 2 MG/ML 2 ML VIAL IV STA (19:52)
[2024-11-21] MEDS: SODIUM CHLORIDE 0.9% 500 ML IV STA (19:53)
[2024-11-21] MEDS: MoRPHine SULFATE 4 MG/ML 1 ML CARP\\VIAL IV STA (19:55)
[2024-11-21 20:12] LABS: Hematocrit (blood only) 52.4 % (42.0-52.0); Hemoglobin 18.0 g/dl (14.0-18.0); Immature Granulocytes # (auto) 0.03 K/uL (0.01-0.20); Immature Granulocytes % (auto) 0.3 %; Mean Corpuscular Hemoglobin 28.6 pg (25.0-34.0); Mean Corpuscular Volume 83.2 fL (80.0-100.0); Platelet Count 473 K/uL (130-400); RDW Standard Deviation 42.4 fL (36.4-46.3); Red Blood Count 6.30 M/uL (4.70-6.10); White Blood Count 11.99 K/ul (4.8-10.8)
--- NOTE | 2024-11-21 20:16 | Emergency Department Note ---
Impression & Plan Acute kidney injury superimposed on chronic kidney disease ADMIT ED Provider Note HPI: History obtained from patient. The patient is a 33-year-old male with history of chronic kidney disease, vesicoureteral reflux, history of self catheterizing, who presents the emergency department with a chief complaint of lower back pain and vomiting. Patient states he has had the symptoms for the past several days. Patient states it feels similar to kidney infections he has had in the past. Patient states he was seen by his PCP this morning and was given an intramuscular dose of Rocephin and started on Bactrim p.o., patient states he did not start taking the Bactrim today. Patient states he continues to have lower back pain and vomiting and therefore he came to the ER to be assessed. On arrival here to the ED the patient is mildly hypertensive but otherwise hemodynamically stable, he appears to be in no acute distress. ROS: - Per HPI Differential Diagnosis: Pyelonephritis, urinary tract infection, acute kidney injury, sepsis, amongst other potential pathologies. *Outpatient medications and allergy history reviewed. PE: General: Alert HEENT: Normocephalic, trachea midline Eyes: Extraocular eye movement is intact, no scleral erythema Pulmonary: Clear to auscultation bilaterally, no wheezing Cardio: Regular rate and rhythm GI: Abdomen is soft to palpation : No suprapubic tenderness, no flank tenderness MSK: No evidence of trauma or malformation of the extremities, no edema Skin: No evidence of rash Neuro: Alert, no focal deficits Psychiatric: Cooperative INDEPENDENT INTERPRETATIONS: equipment monitor phototypesetting: (As interpreted by myself): - An order was placed for continuous cardiac monitoring - Patient was noted to be in sinus rhythm with a rate of 70 Interventions provided in ED: - IV fluid bolus, IV morphine, IV Zofran, IV ceftriaxone Medical Decision Making: IV was established and lab work obtained, patient was placed on monitoring specialist. Lab work shows a mild leukocytosis at 11.99, hemoglobin is normal, platelet count is slightly elevated at 473, CMP shows chronic metabolic acidosis with a serum bicarbonate level of 15, creatinine is elevated at 3.66 (baseline appears to be about 2.2), urinalysis does appear to be consistent with infection with a urine that is nitrite positive, urine leukocyte esterase is 3+, there is significant pyuria. 4+ bacteria. Will send for culture and patient will be treated prophylactically with IV ceftriaxone. CT imaging of the abdomen pelvis without contrast was obtained and does not show hydronephrosis that appears chronic in nature/similar to previous CT imaging. No evidence of any obvious pyelonephritis. I discussed all of the above findings with the patient, he will be admitted for further care and treatment of RAGHAVENDRA as well as UTI. Patient was in agreement to this plan. Case was discussed with the on-call hospitalist, Dr. Costello, the patient was placed for admission in stable condition. Consultants/Discussions held with other healthcare providers: - Hospitalist, Dr. Costello Disposition discussion held by myself with: - Patient Diagnosis: 1. Acute kidney injury superimposed on chronic kidney disease 2. Urinary tract infection, acute Disposition: Admission Garret Pink DO Emergency Medicine Past Med/Surg History Problem List (Updated 11/22/24 @ 00:27 by Garret Pink DO) Hydroureteronephrosis (Acute) Acute kidney injury superimposed on chronic kidney disease (Acute) Leukocytosis (Acute) Sepsis (Acute) Complicated urinary tract infection (Acute) Medical History CKD (chronic kidney disease) Surgical History History of urologic surgery Family History Brother Congenital kidney disease Social History Smoking Status: Never smoker Hx Alcohol Use: No Hx Substance Use: No Preferred Language: Marshallese Communication Ability: Effective Tool And Gauge Inspector Required: No Beliefs That Will Affect Care: None Current Living Situation: Spouse Feels Safe at Home: Yes Assistive Devices: Other Allergies Allergies Allergy/AdvReac Type Severity Reaction Status Date / Time latex Allergy Intermediate RASH/BLISTERED Verified 11/21/24 21:46 SKIN Home Meds Home Medications Medication Instructions Recorded Confirmed ondansetron 4 mg disintegrating 4 mg PO TID PRN nausea and vomiting 11/21/24 11/21/24 tablet potassium chloride 20 mEq 20 meq PO DAILY 11/21/24 11/21/24 tablet,extended release sulfamethoxazole 800 1 tab PO BID 07/01/25 07/01/25 mg-trimethoprim 160 mg tablet Results & Data (ED) Vital Signs Vital Signs - 24 hr 11/21/24 19:31 11/21/24 19:57 11/21/24 19:57 Temperature 36.6 C Temperature Source Temporal Artery Scan Pulse Rate 101 H Pulse Rate [Apical] 81 Respiratory Rate 18 15 Respiratory Effort / Characteristics Non-Labored Spontaneous Non-Labored Spontaneous Respiratory Depth Normal Normal Respiratory Pattern Regular Regular Blood Pressure 151/95 H Blood Pressure [Left Arm] 152/103 H Blood Pressure Mean 113 Blood Pressure Mean [Left Arm] 119 Pulse Oximetry 98 98 98 Oxygen Delivery Method Room Air Room Air Room Air Sepsis Recent Fever Within 48 Hours No Sepsis New/Unexplained Change in Mental Status N/A Sepsis Action Taken by Nursing No Action Required 11/21/24 21:19 11/21/24 21:27 11/21/24 23:00 Temperature Temperature Source Pulse Rate 53 L Pulse Rate [Apical] 81 65 Respiratory Rate 18 18 Respiratory Effort / Characteristics Non-Labored Spontaneous Respiratory Depth Normal Normal Respiratory Pattern Regular Blood Pressure Blood Pressure [Left Arm] 111/83 116/86 Blood Pressure Mean Blood Pressure Mean [Left Arm] 92 96 Pulse Oximetry 99 99 Oxygen Delivery Method Room Air Room Air Sepsis Recent Fever Within 48 Hours Sepsis New/Unexplained Change in Mental Status Sepsis Action Taken by Nursing Laboratory Data 11/21/24 19:45 11/21/24 19:45 Lab Results 11/21/24 11/21/24 11/21/24 Range/Units 19:45 19:58 21:32 WBC 11.99 H (4.8-10.8) K/ul RBC 6.30 H (4.70-6.10) M/uL Hgb 18.0 (14.0-18.0) g/dl Hct 52.4 H (42.0-52.0) % MCV 83.2 (80.0-100.0) fL MCH 28.6 (25.0-34.0) pg MCHC 34.4 (32.0-36.0) g/dL RDW Std Deviation 42.4 (36.4-46.3) fL RDW Coeff of Mauricio 14.7 H (11.5-14.5) % Plt Count 473 H (130-400) K/uL MPV 9.8 (9.4-12.4) fL Immature Gran % (Auto) 0.3 % Neut % (Auto) 72.0 % Lymph % (Auto) 18.7 % [place] % (Auto) 8.1 % Eos % (Auto) 0.4 % Baso % (Auto) 0.5 % Neut # (Auto) 8.64 H (1.40-6.50) K/uL Lymph # (Auto) 2.24 (1.20-3.40) K/uL [place] # (Auto) 0.97 H (0.11-0.59) K/uL Eos # (Auto) 0.05 (0.00-0.50) K/uL Baso # (Auto) 0.06 (0.00-0.20) K/uL Immature Gran # (Auto) 0.03 (0.01-0.20) K/uL Sodium 138 (136-145) mmol/L Potassium 3.6 (3.5-5.1) mmol/L Chloride 109 H (98-107) mmol/L Carbon Dioxide 15 L (21-32) mmol/L Anion Gap 14 H (3-11) BUN 43 H (6-23) mg/dl Creatinine 3.66 H (0.6-1.4) mg/dl Est Cr Clr Drug Dosing 23.1 ml/min eGFR 21.48 BUN/Creatinine Ratio 11.7 (10-20) Glucose 129 H (70-99(Fasting)) mg/dl Lactate 1.0 (0.4-2.0) mmol/L Calcium 10.5 H (8.6-10.3) mg/dl Total Bilirubin 0.6 (0.2-1.0) mg/dl AST 28 (13-39) U/L ALT 27 (7-52) U/L Alkaline Phosphatase 117 H (34-104) U/L Total Protein 9.1 H (6.0-8.3) gm/dl Albumin 4.7 (3.4-5.0) gm/dl Globulin 4.4 H (2.5-4.0) gm/dl Albumin/Globulin Ratio 1.1 (0.9-2) Lipase 92 H (11-82) U/L Urine Color Yellow Urine Appearance Turbid A (Clear) Urine pH >= 9.0 H (4.5-7.5) Ur Specific [place] 1.013 (1.000-1.030) Urine Protein 3+ H (Negative) Urine Glucose (UA) Negative (Negative) Urine Ketones Negative (Negative) Urine Blood 2+ H (Negative) Urine Nitrite Positive A (Negative) Urine Bilirubin Negative (Negative) Urine Urobilinogen Negative (Negative) Ur Leukocyte Esterase 3+ H (Negative) Urine WBC (Auto) >50 H (0-5) /hpf Urine RBC (Auto) >20 H (0-2) /hpf U Hyaline Cast (Auto) >20 H (0-2) /lpf U Epithel Cells (Auto) 0-2 (0-2) /hpf Urine Bacteria (Auto) 4+ H (None Seen) Urine Comment Administered Medications Discontinued Medications Sodium Chloride (Nss) 500 mls @ 999 mls/hr IV .Q31M STA Stop: 11/21/24 20:21 Last Infusion: 11/21/24 20:31 Dose: Infused Documented By: Admin: 11/21/24 19:53 Dose: 999 mls/hr Documented By: KRAIG Ceftriaxone Sodium (Rocephin) 2,000 mg in 50 mls @ 100 mls/hr IV NOW STA Stop: 11/21/24 22:24 Last Infusion: 11/21/24 22:54 Dose: Infused Documented By: Admin: 11/21/24 22:08 Dose: 100 mls/hr Documented By: GLENIS Morphine Sulfate (Morphine Sulfate 4 Mg/Ml 1 Ml Carp\Vial) 4 mg IV NOW STA Stop: 11/21/24 19:52 Last Admin: 11/21/24 19:55 Dose: 4 mg Documented By: KRAIG Ondansetron HCl (Ondansetron Inj 2 Mg/Ml 2 Ml Vial) 4 mg IV NOW STA Stop: 11/21/24 19:50 Last Admin: 11/21/24 19:52 Dose: 4 mg Documented By: KRAIG Imaging Data Radiologist's Impression: Abdomen/Pelvis CT 11/21/24 20:10 Exam(s): CT ABDOMEN + PELVIS Without Contrast EXAM: CT Abdomen and Pelvis Without Intravenous Contrast CLINICAL HISTORY: Reason for exam: lower back pain, UTI. TECHNIQUE: Axial computed tomography images of the abdomen and pelvis without intravenous contrast. CTDI is 9.81 mGy and DLP is 468.84 mGy-cm. Automated exposure control was utilized for the study. A dose lowering technique was utilized adhering to the principles of ALARA. COMPARISON: 05/26/2024. FINDINGS: Exam is limited due to lack of contrast. Lung bases: No consolidation. ABDOMEN: Liver: Gallbladder and bile ducts: Gallbladder is distended. No calcified stones. No ductal dilation. Pancreas: The visualized portions of the pancreas, on this noncontrast study, are grossly unremarkable.. Spleen: No splenomegaly. Adrenals: No mass. Kidneys and ureters: There are small left renal calcifications. There is marked bilateral hydronephrosis with marked renal cortical thinning. There is a diverting urostomy noted in the right lower quadrant.. Stomach and bowel: There is air and fluid within the stomach. There is air and stool noted in the colon.. PELVIS: Appendix: The appendix is not visualized. It may be surgically absent.. Bladder: No calculi are noted within the bladder.. Reproductive: Unremarkable as visualized. ABDOMEN and PELVIS: Intraperitoneal space: No free air. No significant fluid collection. Bones/joints: No acute fracture. No dislocation. Soft tissues: Unremarkable. Vasculature: No abdominal aortic aneurysm. Lymph nodes: There are some enlarged retroperitoneal lymph nodes.. IMPRESSION: There are small left renal calcifications. There is marked bilateral hydronephrosis with marked bilateral renal cortical thinning. There is a diverting urostomy noted in the right lower quadrant. There are some enlarged retroperitoneal lymph nodes. Findings appear similar to previous examination. Electronically signed by: Kolton Escalera MD 11/21/24 22:59 PM Discharge Plan Visit Data Chief Complaint: Kidney Stone Stated Complaint: KIDNEY INFECTION ED Provider: Garret Pink Discharge Problem: Acute kidney injury superimposed on chronic kidney disease Patient Disposition: Admitted As Inpatient Condition: Fair Forms Stand Alone Forms: My [facility] Prescriptions Prescriptions: No Action sulfamethoxazole-trimethoprim 800-160 mg tablet 1 tab PO BID Rx Instructions: ORDERED 11/21/24, WAS PICKED UP, DID NOT START YET potassium chloride 20 mEq tablet extended release 20 meq PO DAILY ondansetron 4 mg tablet,disintegrating 4 mg PO TID PRN (Reason: nausea and vomiting) Referrals Referrals: Lucita Carbone PA-C [Primary Care Provider] -
[2024-11-21 20:18] LABS: Alanine Aminotransferase 27.0 U/L (7-52); Albumin Globulin Ratio 1.1 (0.9-2); Alkaline Phosphatase 117.0 U/L (34-104); Anion Gap 14.0 (3-11); Bilirubin,Total 0.6 mg/dl (0.2-1.0); Blood Urea Nitrogen 43.0 mg/dl (6-23); Calcium 10.5 mg/dl (8.6-10.3); Carbon Dioxide 15.0 mmol/L (21-32); Chloride 109.0 mmol/L (98-107); Creatinine Clr Calc Pharmacy 23.1 ml/min; Globulin 4.4 gm/dl (2.5-4.0); Glucose 129.0 mg/dl (70-99(Fasting)); Lipase 92.0 U/L (11-82); Potassium 3.6 mmol/L (3.5-5.1); Sodium 138.0 mmol/L (136-145); Total Protein 9.1 gm/dl (6.0-8.3)
[2024-11-21 20:21] LABS: Appearance Urine Turbid (Clear); Bacteria Urine Automated 4+ (None Seen); Cast Urine Automated >20 /lpf (0-2); Epithelial Cell Urine Auto 0-2 /hpf (0-2); Glucose Urine UA Negative (Negative); RBC Urine Automated >20 /hpf (0-2); WBC Urine Automated >50 /hpf (0-5)
[2024-11-21] MEDS: cefTRIAXone SODIUM 2,000 MG/50 ML BAG IV STA (22:08)
--- NOTE | 2024-11-21 23:00 | CT Scan Report ---
Exam(s): CT ABDOMEN + PELVIS Without Contrast EXAM: CT Abdomen and Pelvis Without Intravenous Contrast CLINICAL HISTORY: Reason for exam: lower back pain, UTI. TECHNIQUE: Axial computed tomography images of the abdomen and pelvis without intravenous contrast. CTDI is 9.81 mGy and DLP is 468.84 mGy-cm. Automated exposure control was utilized for the study. A dose lowering technique was utilized adhering to the principles of ALARA. COMPARISON: 05/26/2024. FINDINGS: Exam is limited due to lack of contrast. Lung bases: No consolidation. ABDOMEN: Liver: Gallbladder and bile ducts: Gallbladder is distended. No calcified stones. No ductal dilation. Pancreas: The visualized portions of the pancreas, on this noncontrast study, are grossly unremarkable.. Spleen: No splenomegaly. Adrenals: No mass. Kidneys and ureters: There are small left renal calcifications. There is marked bilateral hydronephrosis with marked renal cortical thinning. There is a diverting urostomy noted in the right lower quadrant.. Stomach and bowel: There is air and fluid within the stomach. There is air and stool noted in the colon.. PELVIS: Appendix: The appendix is not visualized. It may be surgically absent.. Bladder: No calculi are noted within the bladder.. Reproductive: Unremarkable as visualized. ABDOMEN and PELVIS: Intraperitoneal space: No free air. No significant fluid collection. Bones/joints: No acute fracture. No dislocation. Soft tissues: Unremarkable. Vasculature: No abdominal aortic aneurysm. Lymph nodes: There are some enlarged retroperitoneal lymph nodes.. IMPRESSION: There are small left renal calcifications. There is marked bilateral hydronephrosis with marked bilateral renal cortical thinning. There is a diverting urostomy noted in the right lower quadrant. There are some enlarged retroperitoneal lymph nodes. Findings appear similar to previous examination. Electronically signed by: Kolton Escalera MD 11/21/24 22:59 PM
--- NOTE | 2024-11-22 00:29 | History & Physical Report ---
Date of Service November 22, 2024 Assessment & Plan (1) Complicated urinary tract infection: Plan: 33-year-old male with past med history significant for chronic kidney disease, vesicoureteral reflux with multiple kidney and bladder surgeries started age 5 had bladder enlarged x3 , right and left ureters connected,had total of 19 surgeries, currently has stoma is right lower abdomen from which he straight caths 4-5 times daily and has history of recurrent UTIs comes because of urinary symptoms.Patient says since last Wednesday having back pain, nausea and foul- smelling urine. Went to PCP office today was given Rocephin injection and prescribed Bactrim. As symptoms were not getting better came to the ER. Denies any headache. Had nausea and vomiting. Some sore throat. Has some cough. No runny nose. No chest pain or shortness of breath. No rash. Normal bowel movements. Hemodynamics are okay. Complicated UTI recurrent UTI On rocephin will follow cultures RAGHAVENDRA on ckd stage 3 metabolic acidosis Baseline cr around 2.0 presented with cr 3.6 to avoid nephrotoxic agents gentle fluids will continue home kcl supplement for now will follow labs Nephro consult in am DVT prophylaxis hep sub q Disposition med/tele Full code. History of Present Illness Chief Complaint: UTI and RAGHAVENDRA Primary Care Provider: Lucita Carbone PA-C 33-year-old male with past med history significant for chronic kidney disease, vesicoureteral reflux with multiple kidney and bladder surgeries started age 5 had bladder enlarged x3 , right and left ureters connected,had total of 19 surgeries, currently has stoma is right lower abdomen from which he straight caths 4-5 times daily and has history of recurrent UTIs comes because of urinary symptoms.Patient says since last Wednesday having back pain, nausea and foul- smelling urine. Went to PCP office today was given Rocephin injection and prescribed Bactrim. As symptoms were not getting better came to the ER. Denies any headache. Had nausea and vomiting. Some sore throat. Has some cough. No runny nose. No chest pain or shortness of breath. No rash. Normal bowel movements. Hemodynamics are okay. Past medical history. As mentioned above. Past surgical history. Multiple kidney and ureter and bladder surgeries. Social history. Denies smoking. Denies alcohol Use. Denies drug use. Family history. Brother has kidney reflux disease. Allergies Allergy/AdvReac Type Severity Reaction Status Date / Time latex Allergy Intermediate RASH/BLISTERED Verified 11/21/24 21:46 SKIN Home Medications Medication Instructions Recorded Confirmed Type ondansetron 4 mg disintegrating 4 mg PO TID PRN nausea and vomiting 11/21/24 11/21/24 History tablet potassium chloride 20 mEq 20 meq PO DAILY 11/21/24 11/21/24 History tablet,extended release sulfamethoxazole 800 1 tab PO BID 11/21/24 11/21/24 History mg-trimethoprim 160 mg tablet Past Med/Surg History Problem List (Updated 11/22/24 @ 00:27 by Garret Pink DO) Hydroureteronephrosis (Acute) Acute kidney injury superimposed on chronic kidney disease (Acute) Leukocytosis (Acute) Sepsis (Acute) Complicated urinary tract infection (Acute) Medical History CKD (chronic kidney disease) Surgical History History of urologic surgery Family History Brother Congenital kidney disease Social History Smoking Status: Never smoker Hx Alcohol Use: No Hx Substance Use: No Preferred Language: Chilean Communication Ability: Effective Slide Maker Required: No Beliefs That Will Affect Care: None Current Living Situation: Spouse Other Information That Helps Us Care for You: No Feels Safe at Home: Yes Safety Concerns: Feels Safe At This Time Assistive Devices: None Review of Systems Review of Systems: All systems reviewed & are unremarkable except as noted in HPI & below Physical Exam Physical Exam: General- Not in distress Head- atraumatic Eyes- PERRL. ENT- oropharynx clear Neck- supple, no JVD. Lungs- clear to auscultation no wheezing or crackles Heart- regular rate and rhythm; no murmur, no gallop. Abdomen- normal bowel sounds, soft, nontender, no distension. stoma site ok Extremities- no pretibial edema, no erythema seen Neuro- alert, oriented PERRL, no facial palsy; no dysarthria; moves extremities Results & Data Results & Data Vital Signs (Past 12 Hours) Vital Signs Temp Pulse Pulse Resp BP BP Pulse Ox 11/21/24 23:00 65 18 116/86 99 11/21/24 21:27 81 18 111/83 99 11/21/24 21:19 53 L 11/21/24 19:57 98 11/21/24 19:57 81 15 152/103 H 98 11/21/24 19:31 36.6 C 101 H 18 151/95 H 98 O2 Del Method 11/21/24 23:00 Room Air 11/21/24 21:27 Room Air 11/21/24 21:19 11/21/24 19:57 Room Air 11/21/24 19:57 Room Air 11/21/24 19:31 Room Air Diagnostic Findings Laboratory Results WBC 11.99 K/ul (4.8-10.8) H 11/21/24 19:45 RBC 6.30 M/uL (4.70-6.10) H 11/21/24 19:45 Hgb 18.0 g/dl (14.0-18.0) 11/21/24 19:45 Hct 52.4 % (42.0-52.0) H 11/21/24 19:45 MCV 83.2 fL (80.0-100.0) 11/21/24 19:45 MCH 28.6 pg (25.0-34.0) 11/21/24 19:45 MCHC 34.4 g/dL (32.0-36.0) 11/21/24 19:45 RDW Std Deviation 42.4 fL (36.4-46.3) 11/21/24 19:45 RDW Coeff of Mauricio 14.7 % (11.5-14.5) H 11/21/24 19:45 Plt Count 473 K/uL (130-400) H 11/21/24 19:45 MPV 9.8 fL (9.4-12.4) 11/21/24 19:45 Immature Gran % (Auto) 0.3 % 11/21/24 19:45 Neut % (Auto) 72.0 % 11/21/24 19:45 Lymph % (Auto) 18.7 % 11/21/24 19:45 [place] % (Auto) 8.1 % 11/21/24 19:45 Eos % (Auto) 0.4 % 11/21/24 19:45 Baso % (Auto) 0.5 % 11/21/24 19:45 Neut # (Auto) 8.64 K/uL (1.40-6.50) H 11/21/24 19:45 Lymph # (Auto) 2.24 K/uL (1.20-3.40) 11/21/24 19:45 [place] # (Auto) 0.97 K/uL (0.11-0.59) H 11/21/24 19:45 Eos # (Auto) 0.05 K/uL (0.00-0.50) 11/21/24 19:45 Baso # (Auto) 0.06 K/uL (0.00-0.20) 11/21/24 19:45 Immature Gran # (Auto) 0.03 K/uL (0.01-0.20) 11/21/24 19:45 Sodium 138 mmol/L (136-145) 11/21/24 19:45 Potassium 3.6 mmol/L (3.5-5.1) 11/21/24 19:45 Chloride 109 mmol/L (98-107) H 11/21/24 19:45 Carbon Dioxide 15 mmol/L (21-32) L 11/21/24 19:45 Anion Gap 14 (3-11) H 11/21/24 19:45 BUN 43 mg/dl (6-23) H 11/21/24 19:45 Creatinine 3.66 mg/dl (0.6-1.4) H 11/21/24 19:45 Est Cr Clr Drug Dosing 23.1 ml/min 11/21/24 19:45 eGFR 21.48 11/21/24 19:45 BUN/Creatinine Ratio 11.7 (10-20) 11/21/24 19:45 Glucose 129 mg/dl (70-99(Fasting)) H 11/21/24 19:45 Lactate 1.0 mmol/L (0.4-2.0) 11/21/24 21:32 Calcium 10.5 mg/dl (8.6-10.3) H 11/21/24 19:45 Total Bilirubin 0.6 mg/dl (0.2-1.0) 11/21/24 19:45 AST 28 U/L (13-39) 11/21/24 19:45 ALT 27 U/L (7-52) 11/21/24 19:45 Alkaline Phosphatase 117 U/L (34-104) H 11/21/24 19:45 Total Protein 9.1 gm/dl (6.0-8.3) H 11/21/24 19:45 Albumin 4.7 gm/dl (3.4-5.0) 11/21/24 19:45 Globulin 4.4 gm/dl (2.5-4.0) H 11/21/24 19:45 Albumin/Globulin Ratio 1.1 (0.9-2) 11/21/24 19:45 Lipase 92 U/L (11-82) H 11/21/24 19:45 Urine Color Yellow 11/21/24 19:58 Urine Appearance Turbid (Clear) A 11/21/24 19:58 Urine pH >= 9.0 (4.5-7.5) H 11/21/24 19:58 Ur Specific [place] 1.013 (1.000-1.030) 11/21/24 19:58 Urine Protein 3+ (Negative) H 11/21/24 19:58 Urine Glucose (UA) Negative (Negative) 11/21/24 19:58 Urine Ketones Negative (Negative) 11/21/24 19:58 Urine Blood 2+ (Negative) H 11/21/24 19:58 Urine Nitrite Positive (Negative) A 11/21/24 19:58 Urine Bilirubin Negative (Negative) 11/21/24 19:58 Urine Urobilinogen Negative (Negative) 11/21/24 19:58 Ur Leukocyte Esterase 3+ (Negative) H 11/21/24 19:58 Urine WBC (Auto) >50 /hpf (0-5) H 11/21/24 19:58 Urine RBC (Auto) >20 /hpf (0-2) H 11/21/24 19:58 U Hyaline Cast (Auto) >20 /lpf (0-2) H 11/21/24 19:58 U Epithel Cells (Auto) 0-2 /hpf (0-2) 11/21/24 19:58 Urine Bacteria (Auto) 4+ (None Seen) H 11/21/24 19:58 Urine Comment 11/21/24 19:58 Impressions Abdomen/Pelvis CT 11/21/24 20:10 Exam(s): CT ABDOMEN + PELVIS Without Contrast EXAM: CT Abdomen and Pelvis Without Intravenous Contrast CLINICAL HISTORY: Reason for exam: lower back pain, UTI. TECHNIQUE: Axial computed tomography images of the abdomen and pelvis without intravenous contrast. CTDI is 9.81 mGy and DLP is 468.84 mGy-cm. Automated exposure control was utilized for the study. A dose lowering technique was utilized adhering to the principles of ALARA. COMPARISON: 05/26/2024. FINDINGS: Exam is limited due to lack of contrast. Lung bases: No consolidation. ABDOMEN: Liver: Gallbladder and bile ducts: Gallbladder is distended. No calcified stones. No ductal dilation. Pancreas: The visualized portions of the pancreas, on this noncontrast study, are grossly unremarkable.. Spleen: No splenomegaly. Adrenals: No mass. Kidneys and ureters: There are small left renal calcifications. There is marked bilateral hydronephrosis with marked renal cortical thinning. There is a diverting urostomy noted in the right lower quadrant.. Stomach and bowel: There is air and fluid within the stomach. There is air and stool noted in the colon.. PELVIS: Appendix: The appendix is not visualized. It may be surgically absent.. Bladder: No calculi are noted within the bladder.. Reproductive: Unremarkable as visualized. ABDOMEN and PELVIS: Intraperitoneal space: No free air. No significant fluid collection. Bones/joints: No acute fracture. No dislocation. Soft tissues: Unremarkable. Vasculature: No abdominal aortic aneurysm. Lymph nodes: There are some enlarged retroperitoneal lymph nodes.. IMPRESSION: There are small left renal calcifications. There is marked bilateral hydronephrosis with marked bilateral renal cortical thinning. There is a diverting urostomy noted in the right lower quadrant. There are some enlarged retroperitoneal lymph nodes. Findings appear similar to previous examination. Electronically signed by: Kolton Escalera MD 11/21/24 22:59 PM Code Status & VTE Plan VTE Prophylaxis Plan VTE Prophylaxis will be ordered: Yes
[2024-11-22] MEDS ORDERED: ONDANSETRON INJ 2 MG/ML 2 ML VIAL IV PRN (02:36)
[2024-11-22] MEDS ORDERED: HYDROmorphone INJ 0.5 MG/0.5 ML SYR IV PRN (02:36)
[2024-11-22] MEDS ORDERED: NITROGLYCERIN SL 0.4 MG/TAB TAB SL PRN (02:36)
[2024-11-22] MEDS: SODIUM CHLORIDE 0.9% 1,000 ML IV SCH (02:36)
[2024-11-22 05:58] LABS: Hematocrit (blood only) 45.4 % (42.0-52.0); Hemoglobin 15.6 g/dl (14.0-18.0); Immature Granulocytes # (auto) 0.02 K/uL (0.01-0.20); Immature Granulocytes % (auto) 0.3 %; Mean Corpuscular Hemoglobin 29.3 pg (25.0-34.0); Mean Corpuscular Volume 85.2 fL (80.0-100.0); Platelet Count 381 K/uL (130-400); RDW Standard Deviation 43.8 fL (36.4-46.3); Red Blood Count 5.33 M/uL (4.70-6.10); White Blood Count 7.67 K/ul (4.8-10.8)
[2024-11-22 06:17] LABS: Anion Gap 8.0 (3-11); Blood Urea Nitrogen 42.0 mg/dl (6-23); Calcium 9.4 mg/dl (8.6-10.3); Carbon Dioxide 18.0 mmol/L (21-32); Chloride 113.0 mmol/L (98-107); Creatinine Clr Calc Pharmacy 26.2 ml/min; Glucose 148.0 mg/dl (70-99(Fasting)); Magnesium 2.3 mg/dl (1.7-2.4); Potassium 3.6 mmol/L (3.5-5.1); Sodium 139.0 mmol/L (136-145)
[2024-11-22] MEDS: HEPARIN SOD 5,000 UNIT/0.5 ML VIAL SQ SCH (08:18)
[2024-11-22] MEDS: POTASSIUM CHLORIDE CRTAB 20 MEQ TABCR PO SCH (08:45)
[2024-11-22] MEDS: ACETAMINOPHEN 325 MG TAB PO PRN (08:45)
--- NOTE | 2024-11-22 10:02 | Nephrology Consultation ---
Date of Consultation November 22, 2024 Assessment & Plan (1) Acute kidney injury superimposed on chronic kidney disease: 33/M with h/o CKD 3B baseline creat 2.3 as of -- , vesicoureteral reflux with multiple kidney and bladder surgeries since age 5 including bladder enlargement x 3 and BL ureteral reimplantation w/ total of 19 surgeries and currently on CIC 4-5 times daily through R lower abdominal stoma, recurrent UTIs. it appears his baseline CKD has been worsening over the years--Not unexpected given underlying problem. Current Adx creat of 3.6 Compared to baseline 2.3 does qualify as stage 1 ROB. Appears hemodynamic In nature in the setting Of Complex UTI and likely Some volume depletion. Creat is trending down and patient appears top be getting somewhat better and has decent urine output so hopefully will improve further. He has appt with Dr Borrego in nephro clinic already. keep that appt. Expect creat to be little bit better by tomorrow. After that may be discharged. (2) Complicated urinary tract infection: Long standing Compelx History causing recurrent problem. He does have upcoming appt with urology (3) Sepsis: Appear better and BP/Vital signs are good. Plan Time spent in 63 mins History of Present Illness Reason for Consultation: Rob on CKD with Complex UTI Attending Physician: Venu Girard MD History of Present Illness 33/M with h/o CKD 3B baseline creat 2.3 as of -- , vesicoureteral reflux with multiple kidney and bladder surgeries since age 5 including bladder enlargement x 3 and BL ureteral reimplantation w/ total of 19 surgeries and currently on CIC 4-5 times daily through R lower abdominal stoma, recurrent UTIs. Admitted last night with Complex UTI and associated ROB with creat of 3.6. Patient says for last 4 days having back pain, nausea and foul-smelling urine. Went to PCP office was given Rocephin injection and prescribed Bactrim. As symptoms were not getting better came to the ER. Since admission IVF and ABX and creat down a bit to 3.2 this AM. Vital signs appear fine--No Low BP or low o2 Situation. CT abdomen 11/21/2024 shows---Chronic Finding of marked bilateral hydronephrosis with marked bilateral renal cortical thinning and presence of a diverting urostomy noted in the right lower quadrant. Currently on NS at 80/hr and IV ceftriaxone. ROS--Fever, urinary Complaints, nausea and otherwise 12 Systems negative Physical Exam Physical Exam: General- Not in distress ENT- oropharynx clear Neck- supple, no JVD. Lungs- clear to auscultation no wheezing or crackles Heart- regular rate and rhythm; no murmur, no gallop. Abdomen- normal bowel sounds, soft, nontender, no distension. stoma site ok Extremities- no pretibial edema, no erythema seen Neuro- alert, oriented PERRL, no facial palsy; no dysarthria; moves extremities Allergies Allergy/AdvReac Type Severity Reaction Status Date / Time latex Allergy Intermediate RASH/BLISTERED Verified 11/21/24 21:46 SKIN Home Medications Medication Instructions Recorded Confirmed Type ondansetron 4 mg disintegrating 4 mg PO TID PRN nausea and vomiting 11/21/24 11/21/24 History tablet potassium chloride 20 mEq 20 meq PO DAILY 11/21/24 11/21/24 History tablet,extended release sulfamethoxazole 800 1 tab PO BID 11/21/24 11/21/24 History mg-trimethoprim 160 mg tablet Patient History Medical History Metabolic acidosis CKD (chronic kidney disease) Surgical History History of urologic surgery Family History Brother Congenital kidney disease Social History Smoking Status: Never smoker Hx Alcohol Use: No Hx Substance Use: No Preferred Language: [place] Communication Ability: Effective Undercover Operator Required: No Beliefs That Will Affect Care: None Current Living Situation: Spouse Other Information That Helps Us Care for You: No Feels Safe at Home: Yes Safety Concerns: Feels Safe At This Time Assistive Devices: None Results & Data Vital Signs (Past 12 Hours) Vital Signs Temp Pulse Pulse Pulse Resp BP BP 11/22/24 07:45 36.6 C 56 L 18 119/78 11/22/24 05:37 50 L 11/22/24 03:37 47 L 11/22/24 02:55 36.4 C L 63 16 124/85 11/22/24 01:57 55 L 18 11/22/24 01:16 55 L 11/22/24 01:00 56 L 18 112/81 11/21/24 23:00 65 18 116/86 Pulse Ox O2 Del Method 11/22/24 07:45 99 Room Air 11/22/24 05:37 11/22/24 03:37 11/22/24 02:55 97 Room Air 11/22/24 01:57 99 Room Air 11/22/24 01:16 11/22/24 01:00 100 Room Air 11/21/24 23:00 99 Room Air Laboratory Results CBC, renal panel, UA and Blood/urine Culture Diagnostic Findings CT abdomen.
[2024-11-22] MEDS: cefTRIAXone SODIUM 2,000 MG/50 ML BAG IV SCH (21:17)
[2024-11-23 06:02] LABS: Hematocrit (blood only) 42.5 % (42.0-52.0); Hemoglobin 14.0 g/dl (14.0-18.0); Mean Corpuscular Hemoglobin 28.9 pg (25.0-34.0); Mean Corpuscular Volume 87.8 fL (80.0-100.0); Platelet Count 294 K/uL (130-400); RDW Standard Deviation 45.4 fL (36.4-46.3); Red Blood Count 4.84 M/uL (4.70-6.10); White Blood Count 5.64 K/ul (4.8-10.8)
[2024-11-23 06:23] LABS: Anion Gap 6.0 (3-11); Blood Urea Nitrogen 32.0 mg/dl (6-23); Calcium 8.6 mg/dl (8.6-10.3); Carbon Dioxide 19.0 mmol/L (21-32); Chloride 115.0 mmol/L (98-107); Creatinine Clr Calc Pharmacy 33.7 ml/min; Glucose 131.0 mg/dl (70-99(Fasting)); Magnesium 2.0 mg/dl (1.7-2.4); Potassium 3.6 mmol/L (3.5-5.1); Sodium 140.0 mmol/L (136-145)
--- NOTE | 2024-11-23 08:52 | Hospitalist Progress Note ---
Date of Service November 23, 2024 Assessment & Plan (1) Complicated urinary tract infection: Plan: 33-year-old male with past med history significant for chronic kidney disease, vesicoureteral reflux with multiple kidney and bladder surgeries started age 5 had bladder enlarged x3 , right and left ureters connected,had total of 19 surgeries, currently has stoma is right lower abdomen from which he straight caths 4-5 times daily and has history of recurrent UTIs comes because of urinary symptoms.Patient says since last Wednesday having back pain, nausea and foul- smelling urine. Went to PCP office today was given Rocephin injection and prescribed Bactrim. As symptoms were not getting better came to the ER. Denies any headache. Had nausea and vomiting. Some sore throat. Has some cough. No runny nose. No chest pain or shortness of breath. No rash. Normal bowel movements. Hemodynamics are okay. Complicated UTI recurrent UTI On rocephin will follow cultures Blood cultx - negat. for 24 hrs Ucultx - pending Reviewed outpt records ([facility]) today - Ucultx growing Proteus mirabilis, will await sensitivities RAGHAVENDRA on ckd stage 3 metabolic acidosis Baseline Cr around 2.0 presented with Cr 3.6 -> now down to 2.5 to avoid nephrotoxic agents gentle fluids will continue home kcl supplement for now will follow labs Nephrology consulted - plan for outpt follow up, already has scheduled w/ Dr. Borrego DVT prophylaxis hep sub q Disposition med/tele Full code. Admission and Anticipated Discharge Date Admission Date: November 22, 2024 Subjective Pt seen in follow up of UTI, RAGHAVENDRA Reviewed outpt records ([facility]) today - Ucultx growing Proteus Currently pt is sitting up in chair in NAD, overall says he is feeling better Cr improved today No fever, chills, chest pain, shortness of breath Review of Systems Review of Systems: All systems reviewed & are unremarkable except as noted in Subjective Physical Exam Physical Exam: General- WD/WN young M in NAD Head- atraumatic Eyes- PERRL. Neck- supple, no JVD. Lungs- clear to auscultation no wheezing or crackles Heart- regular rate and rhythm; no murmur Abdomen- normal bowel sounds, soft, nontender, no distension Extremities- no pretibial edema, no erythema seen Neuro- alert, oriented PERRL, no facial palsy; no dysarthria; moves extremities Results & Data Results & Data Vital Signs (Past 12 Hours) Vital Signs Temp Pulse Pulse Resp BP Pulse Ox O2 Del Method 11/23/24 07:51 36.6 C 51 L 20 118/77 100 Room Air 11/23/24 03:55 36.6 C 54 L 16 100/71 98 Room Air 11/23/24 03:25 49 L 11/22/24 23:15 36.7 C 62 18 110/71 99 Room Air Laboratory Results 11/23/24 Range/Units 05:40 WBC 5.64 (4.8-10.8) K/ul RBC 4.84 (4.70-6.10) M/uL Hgb 14.0 (14.0-18.0) g/dl Hct 42.5 (42.0-52.0) % MCV 87.8 (80.0-100.0) fL MCH 28.9 (25.0-34.0) pg MCHC 32.9 (32.0-36.0) g/dL RDW Std Deviation 45.4 (36.4-46.3) fL RDW Coeff of Mauricio 14.3 (11.5-14.5) % Plt Count 294 (130-400) K/uL MPV 9.8 (9.4-12.4) fL Sodium 140 (136-145) mmol/L Potassium 3.6 (3.5-5.1) mmol/L Chloride 115 H (98-107) mmol/L Carbon Dioxide 19 L (21-32) mmol/L Anion Gap 6 (3-11) BUN 32 H (6-23) mg/dl Creatinine 2.51 H D (0.6-1.4) mg/dl Est Cr Clr Drug Dosing 33.7 ml/min eGFR 33.78 BUN/Creatinine Ratio 12.7 (10-20) Glucose 131 H (70-99(Fasting)) mg/dl Calcium 8.6 (8.6-10.3) mg/dl Phosphorus 2.7 (2.5-4.9) mg/dl Magnesium 2.0 (1.7-2.4) mg/dl Medications Administered Current Inpatient Medications Acetaminophen (Acetaminophen 325 Mg Tab) 650 mg PO Q4H PRN PRN Reason: Pain or Fever Stop: 12/22/24 02:35 Last Admin: 11/22/24 08:45 Dose: 650 mg Heparin Sodium (Porcine) (Heparin Sod 5,000 Unit/0.5 Ml Vial) 5,000 units SQ Q12 [facility] Stop: 12/22/24 08:59 Last Admin: 11/23/24 07:58 Dose: Not Given Hydromorphone HCl (Hydromorphone Inj 0.5 Mg/0.5 Ml Syr) 0.5 mg IV Q6H PRN PRN Reason: Severe Pain (Scale 7, 8, 9,10) Stop: 12/06/24 02:35 Sodium Chloride (Nss) 1,000 mls @ 80 mls/hr IV .[id number] [facility] Stop: 11/25/24 02:35 Last Admin: 11/23/24 03:15 Dose: 80 mls/hr Ceftriaxone Sodium (Rocephin) 2,000 mg in 50 mls @ 100 mls/hr IV Q24H [facility] Stop: 11/27/24 21:59 Last Infusion: 11/22/24 22:00 Dose: Infused Nitroglycerin (Nitroglycerin Sl 0.4 Mg/Tab Tab) 0.4 mg SL Q5M PRN PRN Reason: Chest Pain Stop: 12/22/24 02:35 Ondansetron HCl (Ondansetron Inj 2 Mg/Ml 2 Ml Vial) 4 mg IV Q6H PRN PRN Reason: Nausea Stop: 12/22/24 02:35 Potassium Chloride (Potassium Chloride Crtab 20 Meq Tabcr) 20 meq PO DAILY [facility] Stop: 12/22/24 08:59 Last Admin: 11/22/24 08:45 Dose: 20 meq
--- NOTE | 2024-11-23 09:59 | Nephrology Progress Note ---
Date of Service November 23, 2024 Assessment & Plan Admission and Anticipated Discharge Date Admission Date: November 22, 2024 Subjective Assessment & Plan (1) Acute kidney injury superimposed on chronic kidney disease: 33/M with h/o CKD 3B baseline creat 2.3 as of -- , vesicoureteral reflux with multiple kidney and bladder surgeries since age 5 including bladder enlargement x 3 and BL ureteral reimplantation w/ total of 19 surgeries and currently on CIC 4-5 times daily through R lower abdominal stoma, recurrent UTIs. it appears his baseline CKD has been worsening over the years--Not unexpected given underlying problem. Adx creat of 3.6 Compared to baseline 2.3 does qualify as stage 1 RAGHAVENDRA. Appears hemodynamic In nature in the setting Of Complex UTI and likely Some volume depletion. Creat is trending down and patient appears top be getting somewhat better and has decent urine output so hopefully will improve further. He has appt with Dr Borrego in nephro clinic already. keep that appt. Creat now 2.5 so pretty close to baseline of low to mid 2's Can stop IVf after current bag over. (2) Complicated urinary tract infection: Long standing Complex History causing recurrent problem. He does have upcoming appt with urology. urine and blood C/s so far negative (3) Sepsis: Appear better and BP/Vital signs are good. S--no new issues. labs getting better. Physical Exam Physical Exam: General- Not in distress ENT- oropharynx clear Neck- supple, no JVD. Lungs- clear to auscultation no wheezing or crackles Heart- regular rate and rhythm; no murmur, no gallop. Abdomen- normal bowel sounds, soft, nontender, no distension. stoma site ok Extremities- no pretibial edema, no erythema seen Neuro- alert, oriented PERRL, no facial palsy; no dysarthria; moves extremities Results & Data Vital Signs (Past 12 Hours) Vital Signs Temp Pulse Pulse Resp BP Pulse Ox O2 Del Method 11/23/24 09:38 55 L 11/23/24 07:51 36.6 C 51 L 20 118/77 100 Room Air 11/23/24 03:55 36.6 C 54 L 16 100/71 98 Room Air 11/23/24 03:25 49 L 11/22/24 23:15 36.7 C 62 18 110/71 99 Room Air
[2024-11-23 16:05] VITALS: BP 119/81; RESP 16; TEMP 97.7; O2SAT 100
--- NOTE | 2024-11-23 16:14 | Discharge Summary ---
Date of Service November 23, 2024 Admission HPI Per Admitting Provider 33-year-old male with past med history significant for chronic kidney disease, vesicoureteral reflux with multiple kidney and bladder surgeries started age 5 had bladder enlarged x3 , right and left ureters connected,had total of 19 surgeries, currently has stoma is right lower abdomen from which he straight caths 4-5 times daily and has history of recurrent UTIs comes because of urinary symptoms.Patient says since last Wednesday having back pain, nausea and foul- smelling urine. Went to PCP office today was given Rocephin injection and prescribed Bactrim. As symptoms were not getting better came to the ER. Denies any headache. Had nausea and vomiting. Some sore throat. Has some cough. No runny nose. No chest pain or shortness of breath. No rash. Normal bowel movements. Hemodynamics are okay. Past medical history. As mentioned above. Past surgical history. Multiple kidney and ureter and bladder surgeries. Social history. Denies smoking. Denies alcohol Use. Denies drug use. Family history. Brother has kidney reflux disease. Admission Exam Per Admitting Provider General- Not in distress Head- atraumatic Eyes- PERRL. ENT- oropharynx clear Neck- supple, no JVD. Lungs- clear to auscultation no wheezing or crackles Heart- regular rate and rhythm; no murmur, no gallop. Abdomen- normal bowel sounds, soft, nontender, no distension. stoma site ok Extremities- no pretibial edema, no erythema seen Neuro- alert, oriented PERRL, no facial palsy; no dysarthria; moves extremities Principal Diagnosis UTI, complicated RAGHAVENDRA Discharge Exam General- WD/WN young M in NAD Head- atraumatic Eyes- PERRL. Neck- supple, no JVD. Lungs- clear to auscultation no wheezing or crackles Heart- regular rate and rhythm; no murmur Abdomen- normal bowel sounds, soft, nontender, no distension Extremities- no pretibial edema, no erythema seen Neuro- alert, oriented PERRL, no facial palsy; no dysarthria; moves extremities Discharge Data Allergies Allergy/AdvReac Type Severity Reaction Status Date / Time latex Allergy Intermediate RASH/BLISTERED Verified 11/21/24 21:46 SKIN Consultations 11/21/24 23:30 ED Decision to Admit Stat 11/22/24 08:00 Consult Nephrology Routine Ordered Studies 11/21/24 20:10 CT abd pelvis wo con Stat FINDINGS: Exam is limited due to lack of contrast. Lung bases: No consolidation. ABDOMEN: Liver: Gallbladder and bile ducts: Gallbladder is distended. No calcified stones. No ductal dilation. Pancreas: The visualized portions of the pancreas, on this noncontrast study, are grossly unremarkable.. Spleen: No splenomegaly. Adrenals: No mass. Kidneys and ureters: There are small left renal calcifications. There is marked bilateral hydronephrosis with marked renal cortical thinning. There is a diverting urostomy noted in the right lower quadrant.. Stomach and bowel: There is air and fluid within the stomach. There is air and stool noted in the colon.. PELVIS: Appendix: The appendix is not visualized. It may be surgically absent.. Bladder: No calculi are noted within the bladder.. Reproductive: Unremarkable as visualized. ABDOMEN and PELVIS: Intraperitoneal space: No free air. No significant fluid collection. Bones/joints: No acute fracture. No dislocation. Soft tissues: Unremarkable. Vasculature: No abdominal aortic aneurysm. Lymph nodes: There are some enlarged retroperitoneal lymph nodes.. IMPRESSION: There are small left renal calcifications. There is marked bilateral hydronephrosis with marked bilateral renal cortical thinning. There is a diverting urostomy noted in the right lower quadrant. There are some enlarged retroperitoneal lymph nodes. Findings appear similar to previous examination. Hospital Course (1) Complicated urinary tract infection: 33-year-old male with past med history significant for chronic kidney disease, vesicoureteral reflux with multiple kidney and bladder surgeries started age 5 had bladder enlarged x3 , right and left ureters connected,had total of 19 surgeries, currently has stoma is right lower abdomen from which he straight caths 4-5 times daily and has history of recurrent UTIs comes because of urinary symptoms.Patient says since last Wednesday having back pain, nausea and foul- smelling urine. Went to PCP office today was given Rocephin injection and prescribed Bactrim. As symptoms were not getting better came to the ER. Denies any headache. Had nausea and vomiting. Some sore throat. Has some cough. No runny nose. No chest pain or shortness of breath. No rash. Normal bowel movements. Hemodynamics are okay. Complicated UTI recurrent UTI On rocephin will follow cultures Blood cultx - negat. for 24 hrs Ucultx - pending Reviewed outpt records ([facility]) today - Ucultx growing Proteus mirabilis, will await sensitivities Update: Proteus resistant to Bactrim -> will give one more dose of Rocephin before DC and will DC on cefuroxime for 7 days Pt feels well and is inquiring about DC this PM. RAGHAVENDRA on ckd stage 3 metabolic acidosis Baseline Cr around 2.0 presented with Cr 3.6 -> now down to 2.5 to avoid nephrotoxic agents gentle fluids will continue home kcl supplement for now will follow labs Nephrology consulted - plan for outpt follow up, already has scheduled w/ Dr. Borrego Total Time Total Time Spent Total Time Spent (In Minutes): 40 Discharge Plan Discharge Items Patient Disposition: Home - Self-Care Reason For Visit: UTI, RAGHAVENDRA Discharge Diagnosis: UTI, complicated RAGHAVENDRA Condition on Discharge: Fair Activity: Per Instructions section Non-emergency contact: Primary Care Provider and Specialist Call non-emergency contact if: you have any medication questions and your symptoms worsen Follow-up/Referrals: Lucita Carbone PA-C [Primary Care Provider] - 11/29/24 10:00 am (Date & Time 11/29/2024 10:00 AM Provider: Jed Coleman PA-C [facility] ) Diet: Heart Healthy Addtl Attending Provider Instructions: Follow up with your primary car physician, urology, nephrology. The appointment with your primary care doctor was scheduled for you on November 29, 2024. Finish antibiotic treatment as prescribed. Make sure to stay well hydrated. Pending Studies at Discharge: Yes Studies:: final blood cultx results Stand-Alone Forms: My [facility] INAPPIN, Smoking Cessation Medications and DC Order Prescriptions: New cefuroxime axetil 250 mg tablet 250 mg PO BID 7 Days Qty: 14 0RF Continued potassium chloride 20 mEq tablet extended release 20 meq PO DAILY ondansetron 4 mg tablet,disintegrating 4 mg PO TID PRN (Reason: nausea and vomiting) Discontinued sulfamethoxazole-trimethoprim 800-160 mg tablet 1 tab PO BID Rx Instructions: ORDERED 11/21/24, WAS PICKED UP, DID NOT START YET Discharge Orders: Discharge Order (Routine); Ordered 07/03/25 Ordered By: Venu Girard Admission Data Admit Date/Time: 11/22/24 00:22 Attending Provider: Venu Girard Admit Provider: Jonathan Costello Primary Care Provider: Lucita Carbone Other Providers: Jonathan Costello; Kingston Young; Alvarez Potts Other Interventions: Discharge Summary Assessment (RN) Last Done: 11/23/24 16:51
[2024-11-23] MEDS: ADVANCED PROBIOTIC 625 MG CAPSULE PO SCH (17:02)
[2024-11-23 17:14] VITALS: PULSE 65
--- NOTE | 2024-11-29 08:39 | Coding Query ---
CODING QUERY To promote full compliance with coding requirements relating to patient care, provider participation is requested in all cases of photography and prints curator uncertainty. Please assist us with the question(s) below: In the record, it states that the patient has an UTI. Please clarify below the cause of the UTI if applicable. Thank you. ( ) UTI, unspecified cause. ( ) Other urinary cath/device was the cause of the UTI. ( x ) Self-catheterization was the cause of the UTI. ( ) Other (Specify): Principal Diagnosis: "that condition established after study, to be chiefly responsible for occasioning the admission of the patient to the hospital for care." Co-Existing Principal Diagnosis: "when two or more diagnoses equally meet the criteria for principal diagnosis as determined by the circumstances of admission, diagnostic work up, and/or therapy provided, and the Alphabetic Index, Tabular List, or another coding guideline does not provide sequencing direction, any one of the diagnoses may be sequenced first." "When the physician has documented what appears to be a current diagnosis in the body of the record, but has not included the diagnosis in the final diagnostic statement, the physician should be asked whether the diagnosis should be added." (Source [facility] 2 QTR90. p3-4) CHRISTOPHER
--- NOTE | 2024-11-29 08:43 | Coding Query ---
To promote full compliance with coding requirements relating to patient care, provider participation is requested in all cases of dental mechanic uncertainty. Please assist us with the question(s) below: Coding Question(s): The diagnosis below was documented in the ER as a Differential Diagnosis, and on the 11/22 Nephrology Consultation and the 11/23 Nephrology Progress Note, then subsequently fell off all further documentation. Please indicate if it is still a possible diagnosis or ruled out. Physician's Response(s): SEPSIS ( ) Diagnosed and POA. Please specify further below, in your clinical opinion, the most likely source of Sepsis: ( ) UTI ( ) Other: Please Specify ( ) Unknown most likely source ( ) Diagnosed and not POA. Please specify further below, in your clinical opinion, the most likely source of Sepsis: ( ) UTI ( ) Other: Please Specify ( ) Unknown most likely source ( ) Ruled out ( ) Other (please specify) MTDD
== END 2024-11-23 17:47 | disposition home or self-care (01) ==
LOC: ED 19:26 → INTOOBSV 11-22 00:22 → SUATTDRO 11-22 00:22 → 2N 11-22 00:22

== ENCOUNTER 2025-04-02 20:59 | Inpatient (IN) ==
--- NOTE | 2025-04-02 21:16 | Emergency Department Note ---
Impression & Plan Sepsis, Complicated urinary tract infection, Leukocytosis, Acute kidney injury superimposed on chronic kidney disease, Hydroureteronephrosis, Altered mental status ED Provider Note NAME: BLANCA MCCAIN AGE: 34 SEX: M : 1990 ARRIVES VIA: Ambulance INFORMANT: Patient ED PROVIDER(S): Ricardo Au DO CHIEF COMPLAINT: Altered mental status HPI: Patient is a 34-year-old male with a past medical history of sepsis, RAGHAVENDRA, CKD who presents to the ER for confusion. Per family who is present at bedside he has been having nausea and vomiting all day. He has been laying in bed and has been getting out of bed and confused. Mom notes that he has been with his but she is not too sure how long this has been going on for but it has been there for at least several hours. History is limited and unable to obtain from patient. Mom notes that he does straight cath. ADDITIONAL HISTORY OBTAINED: Per HPI Chronic Medical/Social Conditions Affecting Care: Per HPI PAST MEDICAL HISTORY:See Below PAST SURGICAL HISTORY:See Below FAMILY HISTORY:See Below SOCIAL HISTORY:See Below HOME MEDICATIONS:See Below ALLERGIES:See Below VITALS:See Below PHYSICAL EXAMINATION: GENERAL: Sitting up in bed, eyes are open and bloodshot EYE EXAM: normal conjunctiva. PERRL and EOM's grossly intact. OROPHARYNX: no exudate, no erythema, lips, buccal mucosa, and tongue normal and mucous membranes are moist NECK: supple, no nuchal rigidity, no adenopathy, non-tender LUNGS: Clear to auscultation. Normal chest wall mechanics HEART: no murmurs, S1 normal and S2 normal ABDOMEN: abdomen soft, non-tender, normo-active bowel sounds, no masses, no rebound or guarding. BACK: Back is symmetrical on inspection and there is no deformity, no midline tenderness, no CVA tenderness. SKIN: no rashes and no bruising UPPER EXTREMITIES: upper extremities are grossly normal. LOWER EXTREMITIES: No pitting edema. NEURO EXAM: Awake able to state no and move all extremities but will not follow commands MEDICAL DECISION MAKING: Patient is a 34-year-old male who presents ER for the above-stated complaint. IV was established and blood work was obtained. Labs show mild leukocytosis 11,000. No significant anemia. BMP with a CO2 of 15 and a creatinine of 3.4 up from previous of around 2. Glucose mildly elevated at 140. LFTs bilirubin is unremarkable. Pro-Domo 0.25. Urine with nitrites leuks whites and plus for bacteria consistent with UTI. Viral panel was positive for rhinovirus. Patient was given IV fluids, IV Rocephin and IV vancomycin upon arrival. CT abdomen pelvis showed hydroureter and neurogenic bladder. Chest x-ray was clean and CT head was negative. Case was discussed with the hospitalist for further evaluation management treatment. Of note patient was very lethargic and out of it and did receive droperidol prior to arrival via EMS for agitation. Consults/Care Managements Discussions: Per [facility] Triage Nursing notes reviewed. Limited review of prior medical records performed Vital Signs: reviewed and remarkable for no significant abnormalities Differential diagnosis: Differential diagnoses includes but is not limited to toxic, metabolic, infectious, traumatic, cardiac, neurologic, hematologic, psychiatric and inflammatory etiologies. ER treatment provided: See below Diagnostics interpreted by me include EKG and cardiac monitoring as listed below: -Cardiac Monitoring: An order was placed for continuous cardiac monitoring. The monitor shows a rate of 101 with sinus rhythm. -ECG: Sinus tachycardia rate of 104 Normal axis No PVCs QTc 444 -Laboratory studies:Interpreted by me as stated above in MDM and shown below. Imaging studies: Xrays: As interpreted by me: Portable AP upright 1 view of the chest shows no focal Lutrate CTs show: CT abdomen pelvis and CT head as described above Procedures:none Critical Care: None Past Med/Surg History Problem List (Updated 04/03/25 @ 00:19 by Ricardo Au DO) Altered mental status (Acute) Hydroureteronephrosis (Acute) Acute kidney injury superimposed on chronic kidney disease (Acute) Leukocytosis (Acute) Sepsis (Acute) Complicated urinary tract infection (Acute) Medical History Metabolic acidosis CKD (chronic kidney disease) Surgical History History of urologic surgery Family History Brother Congenital kidney disease Social History Smoking Status: Never smoker Hx Alcohol Use: No Hx Substance Use: No Preferred Language: Bulgarian Communication Ability: Effective Accounting Professional Required: No Beliefs That Will Affect Care: None Current Living Situation: Spouse Feels Safe at Home: Yes Assistive Devices: None Allergies Allergies Allergy/AdvReac Type Severity Reaction Status Date / Time latex Allergy Intermediate RASH/BLISTERED Verified 04/02/25 21:45 SKIN Home Meds Home Medications Medication Instructions Recorded Confirmed No Known Home Medications 04/02/25 04/02/25 Results & Data (ED) Vital Signs Vital Signs - 24 hr 04/02/25 21:15 04/02/25 21:16 04/02/25 21:27 Temperature 36.8 C Temperature Source Axillary Pulse Rate 110 H 113 H 110 H Pulse Rate [Apical] Respiratory Rate 15 Respiratory Effort / Characteristics Non-Labored Spontaneous Respiratory Depth Normal Respiratory Pattern Regular Blood Pressure 114/99 Blood Pressure [Right Arm] Blood Pressure Mean 104 Blood Pressure Mean [Right Arm] Blood Pressure Position Semi-fowlers Blood Pressure Position [Right Arm] Pulse Oximetry 97 97 Oxygen Delivery Method Room Air Room Air Sepsis Recent Fever Within 48 Hours No Sepsis New/Unexplained Change in Mental Status Yes Sepsis Action Taken by Nursing Physician Notified 04/02/25 22:00 04/02/25 22:30 04/02/25 23:00 Temperature Temperature Source Pulse Rate Pulse Rate [Apical] 104 H 112 H 102 H Respiratory Rate 23 16 17 Respiratory Effort / Characteristics Non-Labored Spontaneous Non-Labored Spontaneous Non-Labored Spontaneous Respiratory Depth Normal Normal Normal Respiratory Pattern Regular Regular Regular Blood Pressure Blood Pressure [Right Arm] 119/97 115/88 122/88 Blood Pressure Mean Blood Pressure Mean [Right Arm] 104 97 99 Blood Pressure Position Blood Pressure Position [Right Arm] Semi-fowlers Semi-fowlers Pulse Oximetry 99 99 99 Oxygen Delivery Method Room Air Room Air Room Air Sepsis Recent Fever Within 48 Hours Sepsis New/Unexplained Change in Mental Status Sepsis Action Taken by Nursing 04/02/25 23:56 Temperature Temperature Source Pulse Rate Pulse Rate [Apical] 101 H Respiratory Rate 21 Respiratory Effort / Characteristics Non-Labored Spontaneous Respiratory Depth Normal Respiratory Pattern Regular Blood Pressure Blood Pressure [Right Arm] 138/89 Blood Pressure Mean Blood Pressure Mean [Right Arm] 105 Blood Pressure Position Blood Pressure Position [Right Arm] Semi-fowlers Pulse Oximetry 98 Oxygen Delivery Method Room Air Sepsis Recent Fever Within 48 Hours Sepsis New/Unexplained Change in Mental Status Sepsis Action Taken by Nursing Laboratory Data 04/02/25 21:20 04/02/25 21:20 Lab Results 04/02/25 04/02/25 04/02/25 Range/Units 21:15 21:20 21:24 WBC 11.56 H (4.8-10.8) K/ul RBC 5.59 (4.70-6.10) M/uL Hgb 16.8 (14.0-18.0) g/dl POC Hgb 18.0 (14.0-18.0) g/dl Hct 48.4 (42.0-52.0) % POC Hct 53 H (42-52) % MCV 86.6 (80.0-100.0) fL MCH 30.1 (25.0-34.0) pg MCHC 34.7 (32.0-36.0) g/dL RDW Std Deviation 40.7 (36.4-46.3) fL RDW Coeff of Mauricio 13.0 (11.5-14.5) % Plt Count 304 (130-400) K/uL MPV 10.0 (9.4-12.4) fL Immature Gran % (Auto) 0.3 % Neut % (Auto) 81.7 % Lymph % (Auto) 7.4 % [place] % (Auto) 10.2 % Eos % (Auto) 0.1 % Baso % (Auto) 0.3 % Neut # (Auto) 9.45 H (1.40-6.50) K/uL Lymph # (Auto) 0.86 L (1.20-3.40) K/uL [place] # (Auto) 1.18 H (0.11-0.59) K/uL Eos # (Auto) 0.01 (0.00-0.50) K/uL Baso # (Auto) 0.03 (0.00-0.20) K/uL Immature Gran # (Auto) 0.03 (0.01-0.20) K/uL POC Sodium 145 H (135-144) mmol/L Sodium 142 (136-145) mmol/L POC Potassium 4.2 (3.3-5.0) mmol/L Potassium 4.3 (3.5-5.1) mmol/L POC Chloride 115 H (101-112) mmol/L Chloride 112 H (98-107) mmol/L Carbon Dioxide 15 L (21-32) mmol/L POC Total CO2 14 L (24-31) mmol/L Anion Gap 15 H (3-11) POC Anion Gap 22.0 (16-25) mmol/L POC BUN 47 H (7-18) mg/dl BUN 50 H (6-23) mg/dl Creatinine 3.48 H (0.6-1.4) mg/dl POC Creatinine 3.7 H (0.6-1.3) mg/dl Est Cr Clr Drug Dosing 26.0 ml/min eGFR 22.68 BUN/Creatinine Ratio 14.4 (10-20) Glucose 158 H (70-99(Fasting)) mg/dl POC Glucose 139 H (70-99) mg/dl POC Glucose (other) 152 H (70-99) mg/dl Lactate 2.0 (0.4-2.0) mmol/L Calcium 9.9 (8.6-10.3) mg/dl POC Ioniz Calcium Francoise 1.17 (1.12-1.32) mmol/l Magnesium 1.8 (1.7-2.4) mg/dl Total Bilirubin 0.8 (0.2-1.0) mg/dl Direct Bilirubin 0.2 (0-0.2) mg/dl AST 15 (13-39) U/L ALT 16 (7-52) U/L Alkaline Phosphatase 100 (34-104) U/L Troponin I High Sens 3.2 (0-20) pg/ml Total Protein 8.8 H (6.0-8.3) gm/dl Albumin 4.3 (3.4-5.0) gm/dl Procalcitonin 0.25 (0-0.5) ng/ml Urine Color Urine Appearance (Clear) Urine pH (4.5-7.5) Ur Specific Ball (1.000-1.030) Urine Protein (Negative) Urine Glucose (UA) (Negative) Urine Ketones (Negative) Urine Blood (Negative) Urine Nitrite (Negative) Urine Bilirubin (Negative) Urine Urobilinogen (Negative) Ur Leukocyte Esterase (Negative) Urine WBC (Auto) (0-5) /hpf Urine RBC (Auto) (0-2) /hpf U Hyaline Cast (Auto) (0-2) /lpf U Epithel Cells (Auto) (0-2) /hpf Urine Bacteria (Auto) (None Seen) Urine Comment Urine Opiates Screen (Neg) Ur Methadone, Qual (Neg) Urine Fentanyl Screen (Neg) Urine Barbiturates (Neg) Ur Phencyclidine (PCP) (Neg) U Amphetamin/Meth Scrn (Neg) MDMA (Ecstasy) Screen (Neg) U Benzodiazepines Scrn (Neg) Ur Cocaine Metabolite (Neg) U Marijuana (THC) Screen (Neg) Ethyl Alcohol mg/dL < 10.0 (<10.0) mg/dl Adenovirus (PCR) (NotDetected) B. pertussis DNA (PCR) (NotDetected) B.parapertussis DNA PCR (NotDetected) Lyme Disease Screen (Negative) C. pneumoniae DNA (PCR) (NotDetected) Coronavirus OC43 (PCR) (NotDetected) Coronavirus HKU1 (PCR) (NotDetected) Coronavirus 229E (PCR) (NotDetected) SARS-CoV-2 (PCR) (NotDetected) Coronavirus NL63 (PCR) (NotDetected) Human Metapneumovir PCR (NotDetected) Influenza Type A (PCR) (NotDetected) Influenza Type B (PCR) (NotDetected) M. pneumoniae (PCR) (NotDetected) Parainfluenza 1 (PCR) (NotDetected) Parainfluenza 2 (PCR) (NotDetected) Parainfluenza 3 (PCR) (NotDetected) Parainfluenza 4 (PCR) (NotDetected) RSV (PCR) (NotDetected) Entero/Rhino (PCR) (NotDetected) 04/02/25 04/02/25 04/02/25 Range/Units 21:27 21:30 22:05 WBC (4.8-10.8) K/ul RBC (4.70-6.10) M/uL Hgb (14.0-18.0) g/dl POC Hgb 17.7 (14.0-18.0) g/dl Hct (42.0-52.0) % POC Hct 52 (42-52) % MCV (80.0-100.0) fL MCH (25.0-34.0) pg MCHC (32.0-36.0) g/dL RDW Std Deviation (36.4-46.3) fL RDW Coeff of Mauricio (11.5-14.5) % Plt Count (130-400) K/uL MPV (9.4-12.4) fL Immature Gran % (Auto) % Neut % (Auto) % Lymph % (Auto) % [place] % (Auto) % Eos % (Auto) % Baso % (Auto) % Neut # (Auto) (1.40-6.50) K/uL Lymph # (Auto) (1.20-3.40) K/uL [place] # (Auto) (0.11-0.59) K/uL Eos # (Auto) (0.00-0.50) K/uL Baso # (Auto) (0.00-0.20) K/uL Immature Gran # (Auto) (0.01-0.20) K/uL POC Sodium 145 H (135-144) mmol/L Sodium (136-145) mmol/L POC Potassium 4.3 (3.3-5.0) mmol/L Potassium (3.5-5.1) mmol/L POC Chloride 114 H (101-112) mmol/L Chloride (98-107) mmol/L Carbon Dioxide (21-32) mmol/L POC Total CO2 14 L (24-31) mmol/L Anion Gap (3-11) POC Anion Gap 23.0 (16-25) mmol/L POC BUN 48 H (7-18) mg/dl BUN (6-23) mg/dl Creatinine (0.6-1.4) mg/dl POC Creatinine 3.6 H (0.6-1.3) mg/dl Est Cr Clr Drug Dosing ml/min eGFR BUN/Creatinine Ratio (10-20) Glucose (70-99(Fasting)) mg/dl POC Glucose (70-99) mg/dl POC Glucose (other) 152 H (70-99) mg/dl Lactate (0.4-2.0) mmol/L Calcium (8.6-10.3) mg/dl POC Ioniz Calcium Francoise 1.14 (1.12-1.32) mmol/l Magnesium (1.7-2.4) mg/dl Total Bilirubin (0.2-1.0) mg/dl Direct Bilirubin (0-0.2) mg/dl AST (13-39) U/L ALT (7-52) U/L Alkaline Phosphatase (34-104) U/L Troponin I High Sens (0-20) pg/ml Total Protein (6.0-8.3) gm/dl Albumin (3.4-5.0) gm/dl Procalcitonin (0-0.5) ng/ml Urine Color Red Urine Appearance Turbid A (Clear) Urine pH 8.0 H (4.5-7.5) Ur Specific Ball 1.012 (1.000-1.030) Urine Protein 3+ H (Negative) Urine Glucose (UA) Negative (Negative) Urine Ketones Negative (Negative) Urine Blood 3+ H (Negative) Urine Nitrite Positive A (Negative) Urine Bilirubin Negative (Negative) Urine Urobilinogen Negative (Negative) Ur Leukocyte Esterase 3+ H (Negative) Urine WBC (Auto) >50 H (0-5) /hpf Urine RBC (Auto) >20 H (0-2) /hpf U Hyaline Cast (Auto) >20 H (0-2) /lpf U Epithel Cells (Auto) 0-2 (0-2) /hpf Urine Bacteria (Auto) 4+ H (None Seen) Urine Comment Urine Opiates Screen Neg (Neg) Ur Methadone, Qual Neg (Neg) Urine Fentanyl Screen Neg (Neg) Urine Barbiturates Neg (Neg) Ur Phencyclidine (PCP) Neg (Neg) U Amphetamin/Meth Scrn Neg (Neg) MDMA (Ecstasy) Screen Neg (Neg) U Benzodiazepines Scrn Neg (Neg) Ur Cocaine Metabolite Neg (Neg) U Marijuana (THC) Screen Neg (Neg) Ethyl Alcohol mg/dL (<10.0) mg/dl Adenovirus (PCR) Not Detected (NotDetected) B. pertussis DNA (PCR) Not Detected (NotDetected) B.parapertussis DNA PCR Not Detected (NotDetected) Lyme Disease Screen (Negative) C. pneumoniae DNA (PCR) Not Detected (NotDetected) Coronavirus OC43 (PCR) Not Detected (NotDetected) Coronavirus HKU1 (PCR) Not Detected (NotDetected) Coronavirus 229E (PCR) Not Detected (NotDetected) SARS-CoV-2 (PCR) Not Detected (NotDetected) Coronavirus NL63 (PCR) Not Detected (NotDetected) Human Metapneumovir PCR Not Detected (NotDetected) Influenza Type A (PCR) Not Detected (NotDetected) Influenza Type B (PCR) Not Detected (NotDetected) M. pneumoniae (PCR) Not Detected (NotDetected) Parainfluenza 1 (PCR) Not Detected (NotDetected) Parainfluenza 2 (PCR) Not Detected (NotDetected) Parainfluenza 3 (PCR) Not Detected (NotDetected) Parainfluenza 4 (PCR) Not Detected (NotDetected) RSV (PCR) Not Detected (NotDetected) Entero/Rhino (PCR) DETECTED A (NotDetected) 04/02/25 Range/Units Unknown WBC (4.8-10.8) K/ul RBC (4.70-6.10) M/uL Hgb (14.0-18.0) g/dl POC Hgb (14.0-18.0) g/dl Hct (42.0-52.0) % POC Hct (42-52) % MCV (80.0-100.0) fL MCH (25.0-34.0) pg MCHC (32.0-36.0) g/dL RDW Std Deviation (36.4-46.3) fL RDW Coeff of Mauricio (11.5-14.5) % Plt Count (130-400) K/uL MPV (9.4-12.4) fL Immature Gran % (Auto) % Neut % (Auto) % Lymph % (Auto) % [place] % (Auto) % Eos % (Auto) % Baso % (Auto) % Neut # (Auto) (1.40-6.50) K/uL Lymph # (Auto) (1.20-3.40) K/uL [place] # (Auto) (0.11-0.59) K/uL Eos # (Auto) (0.00-0.50) K/uL Baso # (Auto) (0.00-0.20) K/uL Immature Gran # (Auto) (0.01-0.20) K/uL POC Sodium (135-144) mmol/L Sodium (136-145) mmol/L POC Potassium (3.3-5.0) mmol/L Potassium (3.5-5.1) mmol/L POC Chloride (101-112) mmol/L Chloride (98-107) mmol/L Carbon Dioxide (21-32) mmol/L POC Total CO2 (24-31) mmol/L Anion Gap (3-11) POC Anion Gap (16-25) mmol/L POC BUN (7-18) mg/dl BUN (6-23) mg/dl Creatinine (0.6-1.4) mg/dl POC Creatinine (0.6-1.3) mg/dl Est Cr Clr Drug Dosing ml/min eGFR BUN/Creatinine Ratio (10-20) Glucose (70-99(Fasting)) mg/dl POC Glucose (70-99) mg/dl POC Glucose (other) (70-99) mg/dl Lactate (0.4-2.0) mmol/L Calcium (8.6-10.3) mg/dl POC Ioniz Calcium Francoise (1.12-1.32) mmol/l Magnesium (1.7-2.4) mg/dl Total Bilirubin (0.2-1.0) mg/dl Direct Bilirubin (0-0.2) mg/dl AST (13-39) U/L ALT (7-52) U/L Alkaline Phosphatase (34-104) U/L Troponin I High Sens (0-20) pg/ml Total Protein (6.0-8.3) gm/dl Albumin (3.4-5.0) gm/dl Procalcitonin (0-0.5) ng/ml Urine Color Urine Appearance (Clear) Urine pH (4.5-7.5) Ur Specific Ball (1.000-1.030) Urine Protein (Negative) Urine Glucose (UA) (Negative) Urine Ketones (Negative) Urine Blood (Negative) Urine Nitrite (Negative) Urine Bilirubin (Negative) Urine Urobilinogen (Negative) Ur Leukocyte Esterase (Negative) Urine WBC (Auto) (0-5) /hpf Urine RBC (Auto) (0-2) /hpf U Hyaline Cast (Auto) (0-2) /lpf U Epithel Cells (Auto) (0-2) /hpf Urine Bacteria (Auto) (None Seen) Urine Comment Urine Opiates Screen (Neg) Ur Methadone, Qual (Neg) Urine Fentanyl Screen (Neg) Urine Barbiturates (Neg) Ur Phencyclidine (PCP) (Neg) U Amphetamin/Meth Scrn (Neg) MDMA (Ecstasy) Screen (Neg) U Benzodiazepines Scrn (Neg) Ur Cocaine Metabolite (Neg) U Marijuana (THC) Screen (Neg) Ethyl Alcohol mg/dL (<10.0) mg/dl Adenovirus (PCR) (NotDetected) B. pertussis DNA (PCR) (NotDetected) B.parapertussis DNA PCR (NotDetected) Lyme Disease Screen Negative (Negative) C. pneumoniae DNA (PCR) (NotDetected) Coronavirus OC43 (PCR) (NotDetected) Coronavirus HKU1 (PCR) (NotDetected) Coronavirus 229E (PCR) (NotDetected) SARS-CoV-2 (PCR) (NotDetected) Coronavirus NL63 (PCR) (NotDetected) Human Metapneumovir PCR (NotDetected) Influenza Type A (PCR) (NotDetected) Influenza Type B (PCR) (NotDetected) M. pneumoniae (PCR) (NotDetected) Parainfluenza 1 (PCR) (NotDetected) Parainfluenza 2 (PCR) (NotDetected) Parainfluenza 3 (PCR) (NotDetected) Parainfluenza 4 (PCR) (NotDetected) RSV (PCR) (NotDetected) Entero/Rhino (PCR) (NotDetected) Administered Medications Discontinued Medications Sodium Chloride (Nss) 1,000 mls @ 999 mls/hr IV .[id number] ONE Stop: 04/02/25 22:11 Last Infusion: 04/02/25 23:00 Dose: Infused Documented By: Admin: 04/02/25 21:23 Dose: 999 mls/hr Documented By: SHONNA Ceftriaxone Sodium (Rocephin) 2,000 mg in 50 mls @ 100 mls/hr IV NOW STA Stop: 04/02/25 22:34 Last Infusion: 04/02/25 22:59 Dose: Infused Documented By: Admin: 04/02/25 22:18 Dose: 100 mls/hr Documented By: carlita Imaging Data Radiologist's Impression: Head CT 04/02/25 21:11 Exam(s): CT HEAD Without Contrast EXAM: CT Head Without Intravenous Contrast CLINICAL HISTORY: Reason for exam: ams. TECHNIQUE: Axial computed tomography images of the head/brain without intravenous contrast. CTDI is 37.01 mGy and DLP is 1468.63 mGy-cm. Automated exposure control was utilized for the study. A dose lowering technique was utilized adhering to the principles of ALARA. COMPARISON: No relevant prior studies available. FINDINGS: Brain: No acute intracranial hemorrhage, mass effect, or parenchymal edema. No evident loss of hunt-white matter differentiation. No significant white matter disease. Ventricles: No hydrocephalus. Bones/joints: No acute fracture. Soft tissues: Unremarkable. Sinuses: Unremarkable as visualized. Mastoid air cells: No significant mastoid effusion. IMPRESSION: No acute intracranial process. Electronically signed by: Mook Grajeda M.D. 04/02/25 22:25 PM Chest X-Ray 04/02/25 21:12 Exam(s): XR CXR 1 VIEW EXAM: XR Chest, 1 View CLINICAL HISTORY: Reason for exam: sob . TECHNIQUE: Frontal view of the chest. COMPARISON: No relevant prior studies available. FINDINGS: Lungs: No consolidation. Pleural space: No significant pleural effusion. No pneumothorax. Heart: No cardiomegaly or pulmonary vascular congestion. Bones/joints: No acute fracture. No dislocation. IMPRESSION: No evidence of acute cardiopulmonary disease. Electronically signed by: Mook Grajeda M.D. 04/02/25 22:29 PM Abdomen/Pelvis CT 04/02/25 21:16 Exam(s): CT ABDOMEN + PELVIS Without Contrast EXAM: CT Abdomen and Pelvis Without Intravenous Contrast CLINICAL HISTORY: Reason for exam: ams. TECHNIQUE: Axial computed tomography images of the abdomen and pelvis without intravenous contrast. CTDI is 37.01 mGy and DLP is 1468.63 mGy-cm. Automated exposure control was utilized for the study. A dose lowering technique was utilized adhering to the principles of ALARA. COMPARISON: No relevant prior studies available. FINDINGS: Lung bases are clear. Liver, gallbladder, pancreas, spleen, and adrenal glands are unremarkable. Urinary bladder is distended and trabeculated which may reflect neurogenic bladder. There is severe chronic hydroureteronephrosis of both kidneys with renal parenchymal thinning. Both ureters join together at the mid ureter level, with the distal common ureter nondilated and inserting in the region of the left UVJ. No radiopaque stones are present. Aorta is normal in caliber. There is no adenopathy, free fluid, or free air. Appendix is surgically absent. There are no obstructive or inflammatory bowel changes. Prostate is unremarkable. There are no acute osseous findings. IMPRESSION: 1. Chronic severe bilateral hydroureteronephrosis with marked thinning of the renal parenchyma. Both ureters joint together at the mid ureteral level where a stricture is suggested. The more distal common ureter is decompressed and inserts in the region of the left UVJ. 2. Distended and trabeculated urinary bladder suggesting a neurogenic bladder. Electronically signed by: Mook Grajeda M.D. 04/02/25 22:54 PM Discharge Plan Visit Data Chief Complaint: Altered Mental Status Stated Complaint: AMS, COMBATIVE ED Provider: Ricardo Au Discharge Problem: Sepsis, Complicated urinary tract infection, Leukocytosis, Acute kidney injury superimposed on chronic kidney disease, Hydroureteronephrosis, Altered mental status Condition: Fair Forms Stand Alone Forms: Oxyntix Prescriptions Prescriptions: No Action No Known Home Medications Referrals Referrals: Lucita Carbone PA-C [Primary Care Provider] - Discharge Problem: Sepsis Qualifiers: Sepsis type: sepsis due to unspecified organism Sepsis acute organ dysfunction status: unspecified Qualified Code(s): A41.9 - Sepsis, unspecified organism Leukocytosis Qualifiers: Leukocytosis type: unspecified Qualified Code(s): D72.829 - Elevated white blood cell count, unspecified
[2025-04-02] MEDS: SODIUM CHLORIDE 0.9% 1,000 ML IV ONE (21:23)
[2025-04-02 21:35] LABS: Hematocrit (blood only) 48.4 % (42.0-52.0); Hemoglobin 16.8 g/dl (14.0-18.0); Immature Granulocytes # (auto) 0.03 K/uL (0.01-0.20); Immature Granulocytes % (auto) 0.3 %; Mean Corpuscular Hemoglobin 30.1 pg (25.0-34.0); Mean Corpuscular Volume 86.6 fL (80.0-100.0); Platelet Count 304 K/uL (130-400); RDW Standard Deviation 40.7 fL (36.4-46.3); Red Blood Count 5.59 M/uL (4.70-6.10); White Blood Count 11.56 K/ul (4.8-10.8)
[2025-04-02 21:53] LABS: Alanine Aminotransferase 16.0 U/L (7-52); Albumin Level 4.3 gm/dl (3.4-5.0); Alkaline Phosphatase 100.0 U/L (34-104); Anion Gap 15.0 (3-11); Bilirubin,Total 0.8 mg/dl (0.2-1.0); Blood Urea Nitrogen 50.0 mg/dl (6-23); Calcium 9.9 mg/dl (8.6-10.3); Carbon Dioxide 15.0 mmol/L (21-32); Chloride 112.0 mmol/L (98-107); Creatinine Clr Calc Pharmacy 26.0 ml/min; Glucose 158.0 mg/dl (70-99(Fasting)); Magnesium 1.8 mg/dl (1.7-2.4); Potassium 4.3 mmol/L (3.5-5.1); Sodium 142.0 mmol/L (136-145); Total Protein 8.8 gm/dl (6.0-8.3)
[2025-04-02] MEDS: cefTRIAXone SODIUM 2,000 MG/50 ML BAG IV STA (22:18)
--- NOTE | 2025-04-02 22:25 | CT Scan Report ---
Exam(s): CT HEAD Without Contrast EXAM: CT Head Without Intravenous Contrast CLINICAL HISTORY: Reason for exam: ams. TECHNIQUE: Axial computed tomography images of the head/brain without intravenous contrast. CTDI is 37.01 mGy and DLP is 1468.63 mGy-cm. Automated exposure control was utilized for the study. A dose lowering technique was utilized adhering to the principles of ALARA. COMPARISON: No relevant prior studies available. FINDINGS: Brain: No acute intracranial hemorrhage, mass effect, or parenchymal edema. No evident loss of hunt-white matter differentiation. No significant white matter disease. Ventricles: No hydrocephalus. Bones/joints: No acute fracture. Soft tissues: Unremarkable. Sinuses: Unremarkable as visualized. Mastoid air cells: No significant mastoid effusion. IMPRESSION: No acute intracranial process. Electronically signed by: Mook Grajeda M.D. 04/02/25 22:25 PM
[2025-04-02 22:26] LABS: Chlamydia pneumoniae PCR Not Detected (NotDetected); Coronavirus 229E PCR Not Detected (NotDetected); Coronavirus CoV-2 (COVID19)PCR Not Detected (NotDetected); Coronavirus HKU1 PCR Not Detected (NotDetected); Coronavirus NL63 PCR Not Detected (NotDetected); Coronavirus OC43PCR Not Detected (NotDetected); Human Metapneumovirus PCR Not Detected (NotDetected); Parainfluenza Virus 1 PCR Not Detected (NotDetected); Parainfluenza Virus 2 PCR Not Detected (NotDetected); Parainfluenza Virus 3 PCR Not Detected (NotDetected); Parainfluenza Virus 4 PCR Not Detected (NotDetected); Respiratory Syncytial VirusPCR Not Detected (NotDetected); Rhinovirus/Enterovirus PCR DETECTED (NotDetected)
[2025-04-02 22:29] LABS: Appearance Urine Turbid (Clear); Bacteria Urine Automated 4+ (None Seen); Cast Urine Automated >20 /lpf (0-2); Epithelial Cell Urine Auto 0-2 /hpf (0-2); Glucose Urine UA Negative (Negative); RBC Urine Automated >20 /hpf (0-2); WBC Urine Automated >50 /hpf (0-5)
--- NOTE | 2025-04-02 22:30 | XRay Report ---
Exam(s): XR CXR 1 VIEW EXAM: XR Chest, 1 View CLINICAL HISTORY: Reason for exam: sob . TECHNIQUE: Frontal view of the chest. COMPARISON: No relevant prior studies available. FINDINGS: Lungs: No consolidation. Pleural space: No significant pleural effusion. No pneumothorax. Heart: No cardiomegaly or pulmonary vascular congestion. Bones/joints: No acute fracture. No dislocation. IMPRESSION: No evidence of acute cardiopulmonary disease. Electronically signed by: Mook Grajeda M.D. 04/02/25 22:29 PM
[2025-04-02 22:53] LABS: Amphetamines+Metham, Urine Neg (Neg); MDMA (Ecstacy), Urine Neg (Neg); Marijuana, Urine Neg (Neg)
--- NOTE | 2025-04-02 22:55 | CT Scan Report ---
Exam(s): CT ABDOMEN + PELVIS Without Contrast EXAM: CT Abdomen and Pelvis Without Intravenous Contrast CLINICAL HISTORY: Reason for exam: ams. TECHNIQUE: Axial computed tomography images of the abdomen and pelvis without intravenous contrast. CTDI is 37.01 mGy and DLP is 1468.63 mGy-cm. Automated exposure control was utilized for the study. A dose lowering technique was utilized adhering to the principles of ALARA. COMPARISON: No relevant prior studies available. FINDINGS: Lung bases are clear. Liver, gallbladder, pancreas, spleen, and adrenal glands are unremarkable. Urinary bladder is distended and trabeculated which may reflect neurogenic bladder. There is severe chronic hydroureteronephrosis of both kidneys with renal parenchymal thinning. Both ureters join together at the mid ureter level, with the distal common ureter nondilated and inserting in the region of the left UVJ. No radiopaque stones are present. Aorta is normal in caliber. There is no adenopathy, free fluid, or free air. Appendix is surgically absent. There are no obstructive or inflammatory bowel changes. Prostate is unremarkable. There are no acute osseous findings. IMPRESSION: 1. Chronic severe bilateral hydroureteronephrosis with marked thinning of the renal parenchyma. Both ureters joint together at the mid ureteral level where a stricture is suggested. The more distal common ureter is decompressed and inserts in the region of the left UVJ. 2. Distended and trabeculated urinary bladder suggesting a neurogenic bladder. Electronically signed by: Mook Grajeda M.D. 04/02/25 22:54 PM
--- NOTE | 2025-04-02 23:52 | History & Physical Report ---
Date of Service April 02, 2025 Assessment & Plan (1) Complicated urinary tract infection: Plan: 34-year-old male with past med history significant for chronic kidney disease, vesicoureteral reflux with multiple kidney and bladder surgeries started age 5 had bladder enlarged x3 , right and left ureters connected,had total of 19 surgeries, currently has stoma is right lower abdomen from which he straight caths 4-5 times daily and has history of recurrent UTIs was brought in because of confusion and nausea and vomiting. Mother is in the room. Patient is drowsy. Mother states when EMS came patient was agitated and was given medications to calm down. Patient currently not able to answer any questions. Mother states patient's was having a lot of nausea and vomiting today. Did not eat anything today. Was not getting up from the bed today. Usually eats and drinks okay and ambulates okay. Patient lives with his and children. Mother states she lives close by. As per mother patient has some cough. But no runny nose. Did not complain of any pain. No diarrhea. Hemodynamics okay. Currently could not get any history from the patient.[place]. Sepsis Complicated urinary tract infection meningitis/encephalitis? Agitation, fevers initial lactic acid ok but repeat was 3.4 and again repeat 1.2 lyme screen and anaplasma and Babesia screen negative Received Rocephin in ER Empirically placed on meropenem, vanco and acyclovir IR LP ordered ID consult We will follow the cultures RAGHAVENDRA on CKD stage III Metabolic acidosis Baseline creatinine around 2-2.5 Presented with creatinine of 3.4 Avoid nephrotoxic agents On gentle fluids Follow repeat labs Nephro consult in a.m. Entero-/rhinovirus Supportive care Droplet precautions Confusion/Agitation Mostly from ongoing infection ct head ok vbg ok required droperidol and benzos ammonia level came at 87, Possibly from proteus infection and raghavendra/ckd ordered lactulose enema-not able to administer so far as patient very agitated on touching him. Ordered repeat levels. Will monitor DVT prophylaxis SCDs and heparin subcu Disposition Med/telemetry Full code History of Present Illness Chief Complaint: Confusion and nausea and vomiting Primary Care Provider: Lucita Carbone PA-C 34-year-old male with past med history significant for chronic kidney disease, vesicoureteral reflux with multiple kidney and bladder surgeries started age 5 had bladder enlarged x3 , right and left ureters connected,had total of 19 surgeries, currently has stoma is right lower abdomen from which he straight caths 4-5 times daily and has history of recurrent UTIs was brought in because of confusion and nausea and vomiting. Mother is in the room. Patient is drowsy. Mother states when EMS came patient was agitated and was given medications to calm down. Patient currently not able to answer any questions. Mother states patient's was having a lot of nausea and vomiting today. Did not eat anything today. Was not getting up from the bed today. Usually eats and drinks okay and ambulates okay. Patient lives with his and children. Mother states she lives close by. As per mother patient has some cough. But no runny nose. Did not complain of any pain. No diarrhea. Hemodynamics okay. Currently could not get any history from the patient.[place]. Past medical history. As mentioned above. Past surgical history. Multiple kidney and ureter and bladder surgeries. Social history. Denies smoking. Denies alcohol Use. Denies drug use. Family history. Brother has kidney reflux disease Allergies Allergy/AdvReac Type Severity Reaction Status Date / Time latex Allergy Intermediate RASH/BLISTERED Verified 04/02/25 21:45 SKIN Home Medications Medication Instructions Recorded Confirmed Type No Known Home Medications 04/02/25 04/02/25 History Past Med/Surg History Problem List (Updated 04/03/25 @ 07:23 by Phuong Borrego MD, PhD) Ureteral stricture Altered mental status (Acute) Hydroureteronephrosis (Acute) Acute kidney injury superimposed on chronic kidney disease (Acute) Leukocytosis (Acute) Sepsis (Acute) Complicated urinary tract infection (Acute) Medical History Metabolic acidosis CKD (chronic kidney disease) Surgical History History of urologic surgery Family History Brother Congenital kidney disease Social History Smoking Status: Unknown if ever smoked Hx Alcohol Use: No Hx Substance Use: No Preferred Language: Kiswahili Communication Ability: Effective Home Care Physical Therapist Required: No Beliefs That Will Affect Care: None Current Living Situation: Family Other Information That Helps Us Care for You: No Feels Safe at Home: Yes Safety Concerns: Feels Safe At This Time Assistive Devices: None Review of Systems Review of Systems: Unobtainable due to reduced consciousness Physical Exam Physical Exam: General- Drowsy Head- atraumatic Eyes- PERRL. Lungs- clear to auscultation no wheezing or crackles Heart- regular rate and rhythm; no murmur, no gallop. Abdomen- normal bowel sounds, soft, no distension. Damon placed in stoma Extremities- no pretibial edema, no erythema seen Neuro- drowsy, not responsive to touch or verbal stimuli Results & Data Results & Data Vital Signs (Past 12 Hours) Vital Signs Temp Pulse Pulse Resp BP BP Pulse Ox 04/02/25 23:00 102 H 17 122/88 99 04/02/25 22:30 112 H 16 115/88 99 04/02/25 22:00 104 H 23 119/97 99 04/02/25 21:27 110 H 97 04/02/25 21:16 113 H 04/02/25 21:15 36.8 C 110 H 15 114/99 97 O2 Del Method 04/02/25 23:00 Room Air 04/02/25 22:30 Room Air 04/02/25 22:00 Room Air 04/02/25 21:27 Room Air 04/02/25 21:16 04/02/25 21:15 Room Air Diagnostic Findings Laboratory Results WBC 11.56 K/ul (4.8-10.8) H 04/02/25 21:20 RBC 5.59 M/uL (4.70-6.10) 04/02/25 21:20 Hgb 16.8 g/dl (14.0-18.0) 04/02/25 21:20 POC Hgb 17.7 g/dl (14.0-18.0) 04/02/25 21:30 Hct 48.4 % (42.0-52.0) 04/02/25 21:20 POC Hct 52 % (42-52) 04/02/25 21:30 MCV 86.6 fL (80.0-100.0) 04/02/25 21:20 MCH 30.1 pg (25.0-34.0) 04/02/25 21:20 MCHC 34.7 g/dL (32.0-36.0) 04/02/25 21: RDW Std Deviation 40.7 fL (36.4-46.3) 04/02/25: RDW Coeff of Mauricio 13.0 % (11.5-14.5) 04/02/25 21:20 Plt Count 304 K/uL (130-400) 04/02/25 21: MPV 10.0 fL (9.4-12.4) 04/02/25 21:20 Immature Gran % (Auto) 0.3 % 04/02/25 21:20 Neut % (Auto) 81.7 % 04/02/25:20 Lymph % (Auto) 7.4 % 04/02/25: Weld % (Auto) 10.2 % 04/02/25 21:20 Eos % (Auto) 0.1 % 04/02/25 21: Baso % (Auto) 0.3 % 04/02/25 21:20 Neut # (Auto) 9.45 K/uL (1.40-6.50) H 04/02/25 21:20 Lymph # (Auto) 0.86 K/uL (1.20-3.40) L 04/02/25 21:20 Weld # (Auto) 1.18 K/uL (0.11-0.59) H 04/02/25 21:20 Eos # (Auto) 0.01 K/uL (0.00-0.50) 04/02/25:20 Baso # (Auto) 0.03 K/uL (0.00-0.20) 04/02/25 21:20 Immature Gran # (Auto) 0.03 K/uL (0.01-0.20) 04/02/25 21:20 POC Sodium 145 mmol/L (135-144) H 04/02/25 21:30 Sodium 142 mmol/L (136-145) 04/02/25 21:20 POC Potassium 4.3 mmol/L (3.3-5.0) 04/02/25 21:30 Potassium 4.3 mmol/L (3.5-5.1) 04/02/25 21:20 POC Chloride 114 mmol/L (101-112) H 04/02/25 21:30 Chloride 112 mmol/L (98-107) H 04/02/25 21:20 Carbon Dioxide 15 mmol/L (21-32) L 04/02/25 21:20 POC Total CO2 14 mmol/L (24-31) L 04/02/25 21:30 Anion Gap 15 (3-11) H 04/02/25 21:20 POC Anion Gap 23.0 mmol/L (16-25) 04/02/25 21:30 POC BUN 48 mg/dl (7-18) H 04/02/25 21:30 BUN 50 mg/dl (6-23) H 04/02/25 21:20 Creatinine 3.48 mg/dl (0.6-1.4) H 04/02/25 21:20 POC Creatinine 3.6 mg/dl (0.6-1.3) H 04/02/25 21:30 Est Cr Clr Drug Dosing 26.0 ml/min 04/02/25 21:20 eGFR 22.68 04/02/25 21:20 BUN/Creatinine Ratio 14.4 (10-20) 04/02/25 21:20 Glucose 158 mg/dl (70-99(Fasting)) H 04/02/25 21:20 POC Glucose 139 mg/dl (70-99) H 04/02/25 21:15 POC Glucose (other) 152 mg/dl (70-99) H 04/02/25 21:30 Lactate 2.0 mmol/L (0.4-2.0) 04/02/25 21:20 Calcium 9.9 mg/dl (8.6-10.3) 04/02/25 21:20 POC Ioniz Calcium Francoise 1.14 mmol/l (1.12-1.32) 04/02/25 21:30 Magnesium 1.8 mg/dl (1.7-2.4) 04/02/25 21:20 Total Bilirubin 0.8 mg/dl (0.2-1.0) 04/02/25 21:20 Direct Bilirubin 0.2 mg/dl (0-0.2) 04/02/25 21:20 AST 15 U/L (13-39) 04/02/25 21:20 ALT 16 U/L (7-52) 04/02/25 21:20 Alkaline Phosphatase 100 U/L (34-104) 04/02/25 21:20 Troponin I High Sens 3.2 pg/ml (0-20) 04/02/25 21:20 Total Protein 8.8 gm/dl (6.0-8.3) H 04/02/25 21:20 Albumin 4.3 gm/dl (3.4-5.0) 04/02/25 21:20 Procalcitonin 0.25 ng/ml (0-0.5) 04/02/25 21:20 Urine Color Red 04/02/25 22:05 Urine Appearance Turbid (Clear) A 04/02/25 22:05 Urine pH 8.0 (4.5-7.5) H 04/02/25 22:05 Ur Specific [place] 1.012 (1.000-1.030) 04/02/25 22:05 Urine Protein 3+ (Negative) H 04/02/25 22:05 Urine Glucose (UA) Negative (Negative) 04/02/25 22: Urine Ketones Negative (Negative) 04/02/25 22:05 Urine Blood 3+ (Negative) H 04/02/25 22:05 Urine Nitrite Positive (Negative) A 04/02/25 22:05 Urine Bilirubin Negative (Negative) 04/02/25 22:05 Urine Urobilinogen Negative (Negative) 04/02/25 22:05 Ur Leukocyte Esterase 3+ (Negative) H 04/02/25 22:05 Urine WBC (Auto) >50 /hpf (0-5) H 04/02/25 22:05 Urine RBC (Auto) >20 /hpf (0-2) H 04/02/25 22:05 U Hyaline Cast (Auto) >20 /lpf (0-2) H 04/02/25 22:05 U Epithel Cells (Auto) 0-2 /hpf (0-2) 04/02/25 22:05 Urine Bacteria (Auto) 4+ (None Seen) H 04/02/25 22:05 Urine Comment 04/02/25 22:05 Urine Opiates Screen Neg (Neg) 04/02/25 22:05 Ur Methadone, Qual Neg (Neg) 04/02/25 22:05 Urine Fentanyl Screen Neg (Neg) 04/02/25 22:05 Urine Barbiturates Neg (Neg) 04/02/25 22:05 Ur Phencyclidine (PCP) Neg (Neg) 04/02/25 22:05 U Amphetamin/Meth Scrn Neg (Neg) 04/02/25 22:05 MDMA (Ecstasy) Screen Neg (Neg) 04/02/25 22:05 U Benzodiazepines Scrn Neg (Neg) 04/02/25 22:05 Ur Cocaine Metabolite Neg (Neg) 04/02/25 22:05 U Marijuana (THC) Screen Neg (Neg) 04/02/25 22:05 Ethyl Alcohol mg/dL < 10.0 mg/dl (<10.0) 04/02/25 21:20 Adenovirus (PCR) Not Detected (NotDetected) 04/02/25 21:27 B. pertussis DNA (PCR) Not Detected (NotDetected) 04/02/25 21:27 B.parapertussis DNA PCR Not Detected (NotDetected) 04/02/25 21:27 Lyme Disease Screen Negative (Negative) 04/02/25 Unknown C. pneumoniae DNA (PCR) Not Detected (NotDetected) 04/02/25 21:27 Coronavirus OC43 (PCR) Not Detected (NotDetected) 04/02/25 21:27 Coronavirus HKU1 (PCR) Not Detected (NotDetected) 04/02/25 21:27 Coronavirus 229E (PCR) Not Detected (NotDetected) 04/02/25 21:27 SARS-CoV-2 (PCR) Not Detected (NotDetected) 04/02/25 21:27 Coronavirus NL63 (PCR) Not Detected (NotDetected) 04/02/25 21:27 Human Metapneumovir PCR Not Detected (NotDetected) 04/02/25 21:27 Influenza Type A (PCR) Not Detected (NotDetected) 04/02/25 21:27 Influenza Type B (PCR) Not Detected (NotDetected) 04/02/25 21:27 M. pneumoniae (PCR) Not Detected (NotDetected) 04/02/25 21:27 Parainfluenza 1 (PCR) Not Detected (NotDetected) 04/02/25 21:27 Parainfluenza 2 (PCR) Not Detected (NotDetected) 04/02/25 21:27 Parainfluenza 3 (PCR) Not Detected (NotDetected) 04/02/25 21:27 Parainfluenza 4 (PCR) Not Detected (NotDetected) 04/02/25 21:27 RSV (PCR) Not Detected (NotDetected) 04/02/25 21:27 Entero/Rhino (PCR) DETECTED (NotDetected) A 04/02/25 21:[address] 04/02/25 21:11 Exam(s): CT HEAD Without Contrast EXAM: CT Head Without Intravenous Contrast CLINICAL HISTORY: Reason for exam: ams. TECHNIQUE: Axial computed tomography images of the head/brain without intravenous contrast. CTDI is 37.01 mGy and DLP is 1468.63 mGy-cm. Automated exposure control was utilized for the study. A dose lowering technique was utilized adhering to the principles of ALARA. COMPARISON: No relevant prior studies available. FINDINGS: Brain: No acute intracranial hemorrhage, mass effect, or parenchymal edema. No evident loss of hunt-white matter differentiation. No significant white matter disease. Ventricles: No hydrocephalus. Bones/joints: No acute fracture. Soft tissues: Unremarkable. Sinuses: Unremarkable as visualized. Mastoid air cells: No significant mastoid effusion. IMPRESSION: No acute intracranial process. Electronically signed by: Mook Grajeda M.D. 04/02/25 22:25 PM Chest X-Ray 04/02/25 21:12 Exam(s): XR CXR 1 VIEW EXAM: XR Chest, 1 View CLINICAL HISTORY: Reason for exam: sob . TECHNIQUE: Frontal view of the chest. COMPARISON: No relevant prior studies available. FINDINGS: Lungs: No consolidation. Pleural space: No significant pleural effusion. No pneumothorax. Heart: No cardiomegaly or pulmonary vascular congestion. Bones/joints: No acute fracture. No dislocation. IMPRESSION: No evidence of acute cardiopulmonary disease. Electronically signed by: Mook Grajeda M.D. 04/02/25 22:29 PM Abdomen/Pelvis CT 04/02/25 21:16 Exam(s): CT ABDOMEN + PELVIS Without Contrast EXAM: CT Abdomen and Pelvis Without Intravenous Contrast CLINICAL HISTORY: Reason for exam: ams. TECHNIQUE: Axial computed tomography images of the abdomen and pelvis without intravenous contrast. CTDI is 37.01 mGy and DLP is 1468.63 mGy-cm. Automated exposure control was utilized for the study. A dose lowering technique was utilized adhering to the principles of ALARA. COMPARISON: No relevant prior studies available. FINDINGS: Lung bases are clear. Liver, gallbladder, pancreas, spleen, and adrenal glands are unremarkable. Urinary bladder is distended and trabeculated which may reflect neurogenic bladder. There is severe chronic hydroureteronephrosis of both kidneys with renal parenchymal thinning. Both ureters join together at the mid ureter level, with the distal common ureter nondilated and inserting in the region of the left UVJ. No radiopaque stones are present. Aorta is normal in caliber. There is no adenopathy, free fluid, or free air. Appendix is surgically absent. There are no obstructive or inflammatory bowel changes. Prostate is unremarkable. There are no acute osseous findings. IMPRESSION: 1. Chronic severe bilateral hydroureteronephrosis with marked thinning of the renal parenchyma. Both ureters joint together at the mid ureteral level where a stricture is suggested. The more distal common ureter is decompressed and inserts in the region of the left UVJ. 2. Distended and trabeculated urinary bladder suggesting a neurogenic bladder. Electronically signed by: Mook Grajeda M.D. 04/02/25 22:54 PM Code Status & VTE Plan VTE Prophylaxis Plan VTE Prophylaxis will be ordered: Yes
[2025-04-03 02:44] LABS: Base Excess VBG -9.2 mEq/L; HCO3 VBG 13 mmol/L; Oxygen Saturation VBG 95.8 %; PCO2 VBG 19 mmHg (38-50); PO2 VBG 69 mmHg; pH VBG 7.43 (7.36-7.41)
[2025-04-03] MEDS ORDERED: ACETAMINOPHEN 325 MG TAB PO PRN (03:04)
[2025-04-03] MEDS ORDERED: POLYETHYLENE (MIRALAX) 17 GM PACK PO PRN (03:04)
[2025-04-03] MEDS: SODIUM CHLORIDE 0.9% 1,000 ML IV SCH (03:20)
[2025-04-03] MEDS: ERTAPENEM 500MG 500 MG/5 ML SYR IV STA (03:23)
[2025-04-03] MEDS ORDERED: VANCOMYCIN CONSULT ACTIVE PRN (03:23)
[2025-04-03] MEDS: ACETAMINOPHEN 1,000 MG/100 ML VIAL IV PRN (03:51)
[2025-04-03] MEDS: SODIUM CHLORIDE 0.9% 500 ML IV ONE (03:51)
[2025-04-03] MEDS: VANCOMYCIN HCL / NSS 1,000 MG/270 ML BAG IV STA (04:05)
[2025-04-03] MEDS: DROPERIDOL 5 MG/2 ML VIAL IM STA (04:29)
[2025-04-03 04:48] LABS: Hematocrit (blood only) 41.4 % (42.0-52.0); Hemoglobin 14.2 g/dl (14.0-18.0); Immature Granulocytes # (auto) 0.03 K/uL (0.01-0.20); Immature Granulocytes % (auto) 0.4 %; Mean Corpuscular Hemoglobin 29.8 pg (25.0-34.0); Mean Corpuscular Volume 87.0 fL (80.0-100.0); Platelet Count 263 K/uL (130-400); RDW Standard Deviation 40.7 fL (36.4-46.3); Red Blood Count 4.76 M/uL (4.70-6.10); White Blood Count 6.92 K/ul (4.8-10.8)
[2025-04-03 05:03] LABS: Anion Gap 11.0 (3-11); Blood Urea Nitrogen 47.0 mg/dl (6-23); Calcium 8.6 mg/dl (8.6-10.3); Carbon Dioxide 16.0 mmol/L (21-32); Chloride 118.0 mmol/L (98-107); Creatinine Clr Calc Pharmacy 28.3 ml/min; Glucose 143.0 mg/dl (70-99(Fasting)); Magnesium 1.8 mg/dl (1.7-2.4); Potassium 3.9 mmol/L (3.5-5.1); Sodium 145.0 mmol/L (136-145)
[2025-04-03] MEDS: LORazepam Inj 0.5 MG in SYRINGE 0.25 ML IV STA (06:01)
[2025-04-03] MEDS: MEROPENEM 2,000 MG in SODIUM CHLORIDE 0.9% 60 ML IV SCH (06:58)
--- NOTE | 2025-04-03 07:13 | Nephrology Consultation ---
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 (2) Sepsis: early sepsis is a possibility > though lactate and leukocytosis normalized fast and no hypotension (note that on EPIC review his OP SBP runs 100s-120s) he has recurrent complex UTIs and has had resistant organisms in the past; this infection however has possibly new evidence of obstruction w/ ureteral stricture > I have reviewed both films and defer to urology opinion versus radiology Also w/ significantly altered MS and combativeness needing sedation > hence w/u for meningitis; though mild hyperammonemia may have some role here (hyperammonemia resolved on subsequent labs) continue meropenem f/u pending urine/blood cultures >> prelim again w/ P mirabilis, admission UA c/w UTI in ileal conduit f/u LP data (3) Hydroureteronephrosis: chronic condition but stricture is new radiographically since November on my interpretation >suggest primary review images w/ radiology >currently w/ stomal vidal working well (4) Ureteral stricture: consult urology if this is new/present (5) Metabolic acidosis: nonanion gap metabolic acidosis already present at baseline will be worse for him on NS >changed IVF to 1/2 NS w/ 75 mEq/L Na bic at 80 mL hourly History of Present Illness Reason for Consultation: RAGHAVENDRA on CKD Requesting Physician: Dr Costello Attending Physician: Venu Girard MD History of Present Illness 34 y/o M whom I'm asked to see for RAGHAVENDRA on CKD was admitted last evening w/ complex UTI and creatinine 3.4 after mom called EMS for n/v/generalized weakness/confusion. He required sedation in the field d/t agitation/combativeness. PMH includes CKD 3B baseline creat 2.3 as of -- , vesicoureteral reflux s/p at least 19 kidney and bladder surgeries since age 5 including bladder enlargement x 3 and BL ureteral reimplantation and currently on CIC 4-5 times daily through R lower abdominal stoma, recurrent UTIs. Admitted here November 2024 for 36 hrs w/ resistant Proteus UTI and creatinine 3.6. His is at bedside >> tells me he was out on a hunting trip all last week and likely did not keep up w/ 4-6 CIC daily (more likely 1-2 daily) and likely also was dehydrated, not eating well. He had nausea and lots of NBNB emesis yesterday. No f/c reported, no rash or bites. Imaging suggests distal common ureteral stricture. He has made 1.5L urine so far. Lactate was 3.4 on presentation, normalized w/in 4 hrs/next test; intially w/ WBC 12K, thereafter no leukocytosis. Head CT unremarkable; tox screen negative; biofire + for rhinovirus. He is NPO for a lumbar puncture /AMS currently and empirically started on acyclovir, vancomycin. LP deferred to tomorrow b/c he had heparin this am. He was rx'd lactulose for ammonia level 87 w/ normal transaminases. Team tried to give him lactulose enema but he was combative. He had doses of ceftriaxone, ertapenem > now on meropenem and NS 1.5L now at 80 mL hourly. He is unable to give ROS d/t AMS. Allergies Allergy/AdvReac Type Severity Reaction Status Date / Time latex Allergy Intermediate RASH/BLISTERED Verified 04/02/25 21:45 SKIN Home Medications Medication Instructions Recorded Confirmed Type No Known Home Medications 04/02/25 04/02/25 History Patient History Medical History Metabolic acidosis CKD (chronic kidney disease) Surgical History History of urologic surgery Family History Brother Congenital kidney disease Social History Smoking Status: Unknown if ever smoked Hx Alcohol Use: No Hx Substance Use: No Preferred Language: Mozambican Communication Ability: Effective Gmat Tutor Required: No Beliefs That Will Affect Care: None Current Living Situation: Family Other Information That Helps Us Care for You: No Feels Safe at Home: Yes Safety Concerns: Feels Safe At This Time Assistive Devices: Other Review of Systems 2 Review of Systems: Unobtainable due to reduced consciousness Physical Exam 2 Constitutional: well developed, well nourished and + altered mental status; no acute distress and + uncooperative Eyes: EOM intact bilaterally (in that he occasionally looks around/tracks) ENMT: Mouth: + dry oral mucous membranes Respiratory: normal respiratory effort Auscultation: + diminished lung sounds Gastrointestinal (Abdomen): Inspection/Auscultation: normal bowel sounds P ercussion/Palpation: abdomen soft; abdomen nontender Musculoskeletal: Extremities: strength 5/5 throughout Skin: no rashes, warm and dry Neurologic: renae, fluent speech, no tremor Results & Data Vital Signs (Past 12 Hours) Vital Signs Temp Pulse Pulse Resp BP BP Pulse Ox 04/03/25 05:15 92 H 04/03/25 05:15 89 16 120/80 98 04/03/25 05:13 88 20 120/80 98 04/03/25 04:36 37.2 C 85 18 110/73 97 04/03/25 04:06 98 04/03/25 03:15 98 H 21 120/83 97 04/03/25 03:15 04/03/25 02:52 38.2 C H 104 H 16 125/91 97 04/03/25 02:50 88 L 04/03/25 01:34 93 H 04/03/25 01:00 110 H 13 125/88 98 04/02/25 23:56 101 H 21 138/89 98 04/02/25 23:00 102 H 17 122/88 99 04/02/25 22:30 112 H 16 115/88 99 04/02/25 22:00 104 H 23 119/97 99 04/02/25 21:27 110 H 97 04/02/25 21:16 113 H 04/02/25 21:15 36.8 C 110 H 15 114/99 97 Pulse Ox O2 Del Method O2 Del Method O2 Flow Rate O2 Flow Rate 04/03/25 05:15 04/03/25 05:15 Room Air 04/03/25 05:13 Room Air 04/03/25 04:36 Room Air 04/03/25 04:06 Room Air 2 04/03/25 03:15 Nasal Cannula 2 04/03/25 03:15 97 Nasal Cannula 2 04/03/25 02:52 Nasal Cannula 2 04/03/25 02:50 Nasal Cannula 0 04/03/25 01:34 04/03/25 01:00 Room Air 04/02/25 23:56 Room Air 04/02/25 23:00 Room Air 04/02/25 22:30 Room Air 04/02/25 22:00 Room Air 04/02/25 21:27 Room Air 04/02/25 21:16 04/02/25 21:15 Room Air Laboratory Results 04/03/25 04:27 04/03/25 04:[address] a/p (images personally reviewed; agree w/ report) 1. Chronic severe bilateral hydroureteronephrosis with marked thinning of the renal parenchyma. Both ureters joint together at the mid ureteral level where a stricture is suggested. The more distal common ureter is decompressed and inserts in the region of the left UVJ. 2. Distended and trabeculated urinary bladder suggesting a neurogenic bladder. (2) Sepsis Sepsis acute organ dysfunction status: unspecified Sepsis type: sepsis due to unspecified organism Qualified Code(s): A41.9 - Sepsis, unspecified organism
[2025-04-03] MEDS: SODIUM BICARBONATE 8.4% 75 MEQ in SODIUM CHLORIDE 0.45 % 1,000 ML IV SCH (08:27)
[2025-04-03] MEDS: HEPARIN SOD 5,000 UNIT/0.5 ML VIAL SQ SCH (10:18)
[2025-04-03 10:24] LABS: INR 1.1 (0.9-1.1); Partial Thromboplastin Time 29 Seconds (21-31); Prothrombin Time 11.9 Seconds (9.0-12.0)
--- NOTE | 2025-04-03 12:00 | Pharmacy Report ---
Pharmacy PK ABX Note - Date of Service April 03, 2025 - Assessment and Plan Assessment 34 year old M receiving Vancomycin + Meropenem + Acyclovir empirically for treatment of UTI vs meningitis. * Day #1 of antimicrobial therapy. PMHx significant for CKD stage III with baseline SCr of 2-2.5. Multiple kidney surgeries in past. Has stoma which he straight caths 4-5 times daily. History of recurrent UTIs. * Tmax of 38.2Oc. Procal 0.25 and lactate 3.4 down to 1.2. Leukocytosis im proved. SCr improving as well, down to 3.2 today. * Urine and blood cultures pending. Concern for meningitis. LP pending but of limited efficacy now given patient already on abx. * Past urine cultures with proteus and e. coli. Some resistance but not to ceftriaxone. Will recommend dose adjustment of acyclovir to 540 mg given actual body weight less than ideal and change of meropenem to ceftriaxone given no history of ESBL or pseudomonas. Plan Vancomycin * Loading dose: 1000 mg IV x 1 * Will give 500 mg IV x 1 at 12 hours from previous dose. Despite patient's SCr, still making a large amount of urine. Concerned that level will be too low if I wait to get it until tomorrow morning without giving another dose. * Continue to dose per level for now. * Random level ordered for: 04/04/25 Meropenem * 2000 mg IV every 12 hours - appropriate for indication/renal fxn Acyclovir * 620 mg IV every 12 hours - recommending dose adjustment down to 540 mg for 10 mg/kg actual body weight Pharmacy will continue to follow and will adjust dose/frequency as necessary. Thank you. Pharmacy has transitioned to AUC monitoring for vancomycin. AUC/SOCORRO is the preferred PK/PD target and is associated with decreased risk of nephrotoxicity compared to traditional trough targets.
[2025-04-03] MEDS: LACTULOSE 200GM/700ML WTR ENEMA PR SCH (12:06)
--- NOTE | 2025-04-03 13:11 | Hospitalist Progress Note ---
Date of Service April 03, 2025 Assessment & Plan (1) Complicated urinary tract infection: Plan: Per admitting provider w/ addendum: 34-year-old male with past med history significant for chronic kidney disease, vesicoureteral reflux with multiple kidney and bladder surgeries started age 5 had bladder enlarged x3 , right and left ureters connected,had total of 19 surgeries, currently has stoma is right lower abdomen from which he straight caths 4-5 times daily and has history of recurrent UTIs was brought in because of confusion and nausea and vomiting. Mother is in the room. Patient is drowsy. Mother states when EMS came patient was agitated and was given medications to calm down. Patient currently not able to answer any questions. Mother states patient's was having a lot of nausea and vomiting today. Did not eat anything today. Was not getting up from the bed today. Usually eats and drinks okay and ambulates okay. Patient lives with his and children. Mother states she lives close by. As per mother patient has some cough. But no runny nose. Did not complain of any pain. No diarrhea. Hemodynamics okay. Currently could not get any history from the patient.[place] Sepsis Complicated urinary tract infection meningitis/encephalitis? Agitation, fevers initial lactic acid ok but repeat was 3.4 and again repeat 1.2 lyme screen and anaplasma and Babesia screen negative Received Rocephin in ER Empirically placed on meropenem, vanco and acyclovir IR LP ordered --> contacted by CANDY buck for tmrw AM as pt received heparin ID consulted We will follow the cultures blood cultx, urine cultx pending 04/03 Pt is awake but drowsy, opens eyes, moves extremities, moves his neck, denies any discomfort at this time. He is calm and cooperative. He does not talk though. He does have a cough. His is present at the bedside. WBC down from 11.5K to 6.9K RAGHAVENDRA on CKD stage III Metabolic acidosis Baseline creatinine around 2-2.5 Presented with creatinine of 3.4 Avoid nephrotoxic agents On gentle fluids - bicarb added by nephrology Current Cr 3.2 Nephrology consulted Entero-/rhinovirus Supportive care Droplet precautions pt is now coughing quite a bit Confusion/Agitation Mostly from ongoing infection ct head ok vbg ok required droperidol and benzos ammonia level came at 87, Possibly from proteus infection and raghavendra/ckd ordered lactulose enema-not able to administer so far as patient very agitated on touching him. Ordered repeat levels. Repeat ammonia 70 w/o any intervention, will cont. to monitor. Discussed w/ RN- can try to administer if pt cooperative Will monitor DVT prophylaxis SCDs and heparin subcu (on hold, to obtain LP) Disposition Med/telemetry Full code Admission and Anticipated Discharge Date Admission Date: April 02, 2025 Subjective Pt seen in follow up Pt presents with nausea, vomiting, fever, AMS Hx of UTIs, and s/p multiple urological procedures. Was agitated on presentation. Started on broad spectrum antibiotics on admission. Currently lying in bed in [facility]. His is present at the bedside. He opens his eyes, turn his head "no", cooperative, but does not talk. He has a good eye contact, looks at his and me, he is calm at this time. He is coughing a lot, was found positive for rhinovirus on admission. Also per , he was out hunting with his brothers for several days prior to this. Also discussed w/RN. Review of Systems Review of Systems: All systems reviewed & are unremarkable except as noted in Subjective Physical Exam Physical Exam: General- slim young adult M in NAD, but Drowsy. Opens eyes, cooperative but does not talk. he is moving extremities, and he is moving his neck. Head- atraumatic Eyes- PERRL. Lungs- clear to auscultation no wheezing or crackles Heart- regular rate and rhythm Abdomen- normal bowel sounds, soft, no distension. Vidal placed in stoma. Dark brown urine in vidal bag. Extremities- no pretibial edema, no erythema seen Neuro- drowsy, but Opens eyes, cooperative but does not talk. he is moving extremities, and he is moving his neck. Results & Data Results & Data Vital Signs (Past 12 Hours) Vital Signs Temp Pulse Pulse Resp BP BP Pulse Ox 04/03/25 11:12 36.7 C 100 H 18 107/72 96 04/03/25 07:12 36.6 C 79 12 105/73 98 04/03/25 05:15 92 H 04/03/25 05:15 89 16 120/80 98 04/03/25 05:13 88 20 120/80 98 04/03/25 04:36 37.2 C 85 18 110/73 97 04/03/25 04:06 98 04/03/25 03:15 98 H 21 120/83 97 04/03/25 03:15 04/03/25 02:52 38.2 C H 104 H 16 125/91 97 04/03/25 02:50 88 L 04/03/25 01:34 93 H 04/03/25 01:00 110 H 13 125/88 98 Pulse Ox O2 Del Method O2 Del Method O2 Flow Rate O2 Flow Rate 04/03/25 11:12 Room Air 04/03/25 07:12 Room Air 04/03/25 05:15 04/03/25 05:15 Room Air 04/03/25 05:13 Room Air 04/03/25 04:36 Room Air 04/03/25 04:06 Room Air 2 04/03/25 03:15 Nasal Cannula 2 04/03/25 03:15 97 Nasal Cannula 2 04/03/25 02:52 Nasal Cannula 2 04/03/25 02:50 Nasal Cannula 0 04/03/25 01:34 04/03/25 01:00 Room Air Laboratory Results 04/03/25 04/03/25 04/03/25 Range/Units 07:46 06:26 06:25 WBC (4.8-10.8) K/ul RBC (4.70-6.10) M/uL Hgb (14.0-18.0) g/dl POC Hgb (14.0-18.0) g/dl Hct (42.0-52.0) % POC Hct (42-52) % MCV (80.0-100.0) fL MCH (25.0-34.0) pg MCHC (32.0-36.0) g/dL RDW Std Deviation (36.4-46.3) fL RDW Coeff of Mauricio (11.5-14.5) % Plt Count (130-400) K/uL MPV (9.4-12.4) fL Immature Gran % (Auto) % Neut % (Auto) % Lymph % (Auto) % [place] % (Auto) % Eos % (Auto) % Baso % (Auto) % Neut # (Auto) (1.40-6.50) K/uL Lymph # (Auto) (1.20-3.40) K/uL [place] # (Auto) (0.11-0.59) K/uL Eos # (Auto) (0.00-0.50) K/uL Baso # (Auto) (0.00-0.20) K/uL Immature Gran # (Auto) (0.01-0.20) K/uL PT 11.9 (9.0-12.0) Seconds INR 1.1 (0.9-1.1) APTT 29 (21-31) Seconds PTT Ratio 1.1 VBG pH (7.36-7.41) VBG pCO2 (38-50) mmHg VBG pO2 mmHg VBG HCO3 mmol/L VBG O2 Saturation % VBG Base Excess mEq/L POC Sodium (135-144) mmol/L Sodium (136-145) mmol/L POC Potassium (3.3-5.0) mmol/L Potassium (3.5-5.1) mmol/L POC Chloride (101-112) mmol/L Chloride (98-107) mmol/L Carbon Dioxide (21-32) mmol/L POC Total CO2 (24-31) mmol/L Anion Gap (3-11) POC Anion Gap (16-25) mmol/L POC BUN (7-18) mg/dl BUN (6-23) mg/dl Creatinine (0.6-1.4) mg/dl POC Creatinine (0.6-1.3) mg/dl Est Cr Clr Drug Dosing ml/min eGFR BUN/Creatinine Ratio (10-20) Glucose (70-99(Fasting)) mg/dl POC Glucose (70-99) mg/dl POC Glucose (other) (70-99) mg/dl Lactate 1.2 (0.4-2.0) mmol/L Calcium (8.6-10.3) mg/dl POC Ioniz Calcium Francoise (1.12-1.32) mmol/l Magnesium (1.7-2.4) mg/dl Total Bilirubin (0.2-1.0) mg/dl Direct Bilirubin (0-0.2) mg/dl AST (13-39) U/L ALT (7-52) U/L Alkaline Phosphatase (34-104) U/L Ammonia 70.0 (18-72) umol/L Troponin I High Sens (0-20) pg/ml Total Protein (6.0-8.3) gm/dl Albumin (3.4-5.0) gm/dl Procalcitonin (0-0.5) ng/ml Urine Color Urine Appearance (Clear) Urine pH (4.5-7.5) Ur Specific [place] (1.000-1.030) Urine Protein (Negative) Urine Glucose (UA) (Negative) Urine Ketones (Negative) Urine Blood (Negative) Urine Nitrite (Negative) Urine Bilirubin (Negative) Urine Urobilinogen (Negative) Ur Leukocyte Esterase (Negative) Urine WBC (Auto) (0-5) /hpf Urine RBC (Auto) (0-2) /hpf U Hyaline Cast (Auto) (0-2) /lpf U Epithel Cells (Auto) (0-2) /hpf Urine Bacteria (Auto) (None Seen) Urine Comment Urine Opiates Screen (Neg) Ur Methadone, Qual (Neg) Urine Fentanyl Screen (Neg) Urine Barbiturates (Neg) Ur Phencyclidine (PCP) (Neg) U Amphetamin/Meth Scrn (Neg) MDMA (Ecstasy) Screen (Neg) U Benzodiazepines Scrn (Neg) Ur Cocaine Metabolite (Neg) U Marijuana (THC) Screen (Neg) Ethyl Alcohol mg/dL (<10.0) mg/dl Adenovirus (PCR) (NotDetected) Anaplasma Smear A. phagocytophilum DNA Babesia Smear Babesia microti DNA PCR B. pertussis DNA (PCR) (NotDetected) B.parapertussis DNA PCR (NotDetected) Lyme Disease Screen (Negative) C. pneumoniae DNA (PCR) (NotDetected) Coronavirus OC43 (PCR) (NotDetected) Coronavirus HKU1 (PCR) (NotDetected) Coronavirus 229E (PCR) (NotDetected) SARS-CoV-2 (PCR) (NotDetected) Coronavirus NL63 (PCR) (NotDetected) Human Metapneumovir PCR (NotDetected) Influenza Type A (PCR) (NotDetected) Influenza Type B (PCR) (NotDetected) M. pneumoniae (PCR) (NotDetected) Parainfluenza 1 (PCR) (NotDetected) Parainfluenza 2 (PCR) (NotDetected) Parainfluenza 3 (PCR) (NotDetected) Parainfluenza 4 (PCR) (NotDetected) RSV (PCR) (NotDetected) Entero/Rhino (PCR) (NotDetected) 04/03/25 04/03/25 04/02/25 Range/Units 04:27 02:33 Unknown WBC 6.92 (4.8-10.8) K/ul RBC 4.76 (4.70-6.10) M/uL Hgb 14.2 (14.0-18.0) g/dl POC Hgb (14.0-18.0) g/dl Hct 41.4 L (42.0-52.0) % POC Hct (42-52) % MCV 87.0 (80.0-100.0) fL MCH 29.8 (25.0-34.0) pg MCHC 34.3 (32.0-36.0) g/dL RDW Std Deviation 40.7 (36.4-46.3) fL RDW Coeff of Mauricio 12.9 (11.5-14.5) % Plt Count 263 (130-400) K/uL MPV 10.2 (9.4-12.4) fL Immature Gran % (Auto) 0.4 % Neut % (Auto) 71.0 % Lymph % (Auto) 12.6 % [place] % (Auto) 15.0 % Eos % (Auto) 0.4 % Baso % (Auto) 0.6 % Neut # (Auto) 4.91 (1.40-6.50) K/uL Lymph # (Auto) 0.87 L (1.20-3.40) K/uL [place] # (Auto) 1.04 H (0.11-0.59) K/uL Eos # (Auto) 0.03 (0.00-0.50) K/uL Baso # (Auto) 0.04 (0.00-0.20) K/uL Immature Gran # (Auto) 0.03 (0.01-0.20) K/uL PT (9.0-12.0) Seconds INR (0.9-1.1) APTT (21-31) Seconds PTT Ratio VBG pH 7.43 H (7.36-7.41) VBG pCO2 19 L (38-50) mmHg VBG pO2 69 mmHg VBG HCO3 13 mmol/L VBG O2 Saturation 95.8 % VBG Base Excess -9.2 mEq/L POC Sodium (135-144) mmol/L Sodium 145 (136-145) mmol/L POC Potassium (3.3-5.0) mmol/L Potassium 3.9 (3.5-5.1) mmol/L POC Chloride (101-112) mmol/L Chloride 118 H (98-107) mmol/L Carbon Dioxide 16 L (21-32) mmol/L POC Total CO2 (24-31) mmol/L Anion Gap 11 (3-11) POC Anion Gap (16-25) mmol/L POC BUN (7-18) mg/dl BUN 47 H (6-23) mg/dl Creatinine 3.20 H (0.6-1.4) mg/dl POC Creatinine (0.6-1.3) mg/dl Est Cr Clr Drug Dosing 28.3 ml/min eGFR 25.08 BUN/Creatinine Ratio 14.7 (10-20) Glucose 143 H (70-99(Fasting)) mg/dl POC Glucose (70-99) mg/dl POC Glucose (other) (70-99) mg/dl Lactate 3.4 H* (0.4-2.0) mmol/L Calcium 8.6 (8.6-10.3) mg/dl POC Ioniz Calcium Francoise (1.12-1.32) mmol/l Magnesium 1.8 (1.7-2.4) mg/dl Total Bilirubin (0.2-1.0) mg/dl Direct Bilirubin (0-0.2) mg/dl AST (13-39) U/L ALT (7-52) U/L Alkaline Phosphatase (34-104) U/L Ammonia 87.0 H (18-72) umol/L Troponin I High Sens (0-20) pg/ml Total Protein (6.0-8.3) gm/dl Albumin (3.4-5.0) gm/dl Procalcitonin (0-0.5) ng/ml Urine Color Urine Appearance (Clear) Urine pH (4.5-7.5) Ur Specific [place] (1.000-1.030) Urine Protein (Negative) Urine Glucose (UA) (Negative) Urine Ketones (Negative) Urine Blood (Negative) Urine Nitrite (Negative) Urine Bilirubin (Negative) Urine Urobilinogen (Negative) Ur Leukocyte Esterase (Negative) Urine WBC (Auto) (0-5) /hpf Urine RBC (Auto) (0-2) /hpf U Hyaline Cast (Auto) (0-2) /lpf U Epithel Cells (Auto) (0-2) /hpf Urine Bacteria (Auto) (None Seen) Urine Comment Urine Opiates Screen (Neg) Ur Methadone, Qual (Neg) Urine Fentanyl Screen (Neg) Urine Barbiturates (Neg) Ur Phencyclidine (PCP) (Neg) U Amphetamin/Meth Scrn (Neg) MDMA (Ecstasy) Screen (Neg) U Benzodiazepines Scrn (Neg) Ur Cocaine Metabolite (Neg) U Marijuana (THC) Screen (Neg) Ethyl Alcohol mg/dL (<10.0) mg/dl Adenovirus (PCR) (NotDetected) Anaplasma Smear A. phagocytophilum DNA Babesia Smear Babesia microti DNA PCR B. pertussis DNA (PCR) (NotDetected) B.parapertussis DNA PCR (NotDetected) Lyme Disease Screen Negative (Negative) C. pneumoniae DNA (PCR) (NotDetected) Coronavirus OC43 (PCR) (NotDetected) Coronavirus HKU1 (PCR) (NotDetected) Coronavirus 229E (PCR) (NotDetected) SARS-CoV-2 (PCR) (NotDetected) Coronavirus NL63 (PCR) (NotDetected) Human Metapneumovir PCR (NotDetected) Influenza Type A (PCR) (NotDetected) Influenza Type B (PCR) (NotDetected) M. pneumoniae (PCR) (NotDetected) Parainfluenza 1 (PCR) (NotDetected) Parainfluenza 2 (PCR) (NotDetected) Parainfluenza 3 (PCR) (NotDetected) Parainfluenza 4 (PCR) (NotDetected) RSV (PCR) (NotDetected) Entero/Rhino (PCR) (NotDetected) 04/02/25 04/02/25 04/02/25 Range/Units 22:51 22:05 21:30 WBC (4.8-10.8) K/ul RBC (4.70-6.10) M/uL Hgb (14.0-18.0) g/dl POC Hgb 17.7 (14.0-18.0) g/dl Hct (42.0-52.0) % POC Hct 52 (42-52) % MCV (80.0-100.0) fL MCH (25.0-34.0) pg MCHC (32.0-36.0) g/dL RDW Std Deviation (36.4-46.3) fL RDW Coeff of Mauricio (11.5-14.5) % Plt Count (130-400) K/uL MPV (9.4-12.4) fL Immature Gran % (Auto) % Neut % (Auto) % Lymph % (Auto) % [place] % (Auto) % Eos % (Auto) % Baso % (Auto) % Neut # (Auto) (1.40-6.50) K/uL Lymph # (Auto) (1.20-3.40) K/uL [place] # (Auto) (0.11-0.59) K/uL Eos # (Auto) (0.00-0.50) K/uL Baso # (Auto) (0.00-0.20) K/uL Immature Gran # (Auto) (0.01-0.20) K/uL PT (9.0-12.0) Seconds INR (0.9-1.1) APTT (21-31) Seconds PTT Ratio VBG pH (7.36-7.41) VBG pCO2 (38-50) mmHg VBG pO2 mmHg VBG HCO3 mmol/L VBG O2 Saturation % VBG Base Excess mEq/L POC Sodium 145 H (135-144) mmol/L Sodium (136-145) mmol/L POC Potassium 4.3 (3.3-5.0) mmol/L Potassium (3.5-5.1) mmol/L POC Chloride 114 H (101-112) mmol/L Chloride (98-107) mmol/L Carbon Dioxide (21-32) mmol/L POC Total CO2 14 L (24-31) mmol/L Anion Gap (3-11) POC Anion Gap 23.0 (16-25) mmol/L POC BUN 48 H (7-18) mg/dl BUN (6-23) mg/dl Creatinine (0.6-1.4) mg/dl POC Creatinine 3.6 H (0.6-1.3) mg/dl Est Cr Clr Drug Dosing ml/min eGFR BUN/Creatinine Ratio (10-20) Glucose (70-99(Fasting)) mg/dl POC Glucose (70-99) mg/dl POC Glucose (other) 152 H (70-99) mg/dl Lactate (0.4-2.0) mmol/L Calcium (8.6-10.3) mg/dl POC Ioniz Calcium Francoise 1.14 (1.12-1.32) mmol/l Magnesium (1.7-2.4) mg/dl Total Bilirubin (0.2-1.0) mg/dl Direct Bilirubin (0-0.2) mg/dl AST (13-39) U/L ALT (7-52) U/L Alkaline Phosphatase (34-104) U/L Ammonia (18-72) umol/L Troponin I High Sens (0-20) pg/ml Total Protein (6.0-8.3) gm/dl Albumin (3.4-5.0) gm/dl Procalcitonin (0-0.5) ng/ml Urine Color Red Urine Appearance Turbid A (Clear) Urine pH 8.0 H (4.5-7.5) Ur Specific [place] 1.012 (1.000-1.030) Urine Protein 3+ H (Negative) Urine Glucose (UA) Negative (Negative) Urine Ketones Negative (Negative) Urine Blood 3+ H (Negative) Urine Nitrite Positive A (Negative) Urine Bilirubin Negative (Negative) Urine Urobilinogen Negative (Negative) Ur Leukocyte Esterase 3+ H (Negative) Urine WBC (Auto) >50 H (0-5) /hpf Urine RBC (Auto) >20 H (0-2) /hpf U Hyaline Cast (Auto) >20 H (0-2) /lpf U Epithel Cells (Auto) 0-2 (0-2) /hpf Urine Bacteria (Auto) 4+ H (None Seen) Urine Comment Urine Opiates Screen Neg (Neg) Ur Methadone, Qual Neg (Neg) Urine Fentanyl Screen Neg (Neg) Urine Barbiturates Neg (Neg) Ur Phencyclidine (PCP) Neg (Neg) U Amphetamin/Meth Scrn Neg (Neg) MDMA (Ecstasy) Screen Neg (Neg) U Benzodiazepines Scrn Neg (Neg) Ur Cocaine Metabolite Neg (Neg) U Marijuana (THC) Screen Neg (Neg) Ethyl Alcohol mg/dL (<10.0) mg/dl Adenovirus (PCR) (NotDetected) Anaplasma Smear A. phagocytophilum DNA Pending Babesia Smear Babesia microti DNA PCR Pending B. pertussis DNA (PCR) (NotDetected) B.parapertussis DNA PCR (NotDetected) Lyme Disease Screen (Negative) C. pneumoniae DNA (PCR) (NotDetected) Coronavirus OC43 (PCR) (NotDetected) Coronavirus HKU1 (PCR) (NotDetected) Coronavirus 229E (PCR) (NotDetected) SARS-CoV-2 (PCR) (NotDetected) Coronavirus NL63 (PCR) (NotDetected) Human Metapneumovir PCR (NotDetected) Influenza Type A (PCR) (NotDetected) Influenza Type B (PCR) (NotDetected) M. pneumoniae (PCR) (NotDetected) Parainfluenza 1 (PCR) (NotDetected) Parainfluenza 2 (PCR) (NotDetected) Parainfluenza 3 (PCR) (NotDetected) Parainfluenza 4 (PCR) (NotDetected) RSV (PCR) (NotDetected) Entero/Rhino (PCR) (NotDetected) 04/02/25 04/02/25 04/02/25 Range/Units 21:27 21:24 21:20 WBC 11.56 H (4.8-10.8) K/ul RBC 5.59 (4.70-6.10) M/uL Hgb 16.8 (14.0-18.0) g/dl POC Hgb 18.0 (14.0-18.0) g/dl Hct 48.4 (42.0-52.0) % POC Hct 53 H (42-52) % MCV 86.6 (80.0-100.0) fL MCH 30.1 (25.0-34.0) pg MCHC 34.7 (32.0-36.0) g/dL RDW Std Deviation 40.7 (36.4-46.3) fL RDW Coeff of Mauricio 13.0 (11.5-14.5) % Plt Count 304 (130-400) K/uL MPV 10.0 (9.4-12.4) fL Immature Gran % (Auto) 0.3 % Neut % (Auto) 81.7 % Lymph % (Auto) 7.4 % [place] % (Auto) 10.2 % Eos % (Auto) 0.1 % Baso % (Auto) 0.3 % Neut # (Auto) 9.45 H (1.40-6.50) K/uL Lymph # (Auto) 0.86 L (1.20-3.40) K/uL [place] # (Auto) 1.18 H (0.11-0.59) K/uL Eos # (Auto) 0.01 (0.00-0.50) K/uL Baso # (Auto) 0.03 (0.00-0.20) K/uL Immature Gran # (Auto) 0.03 (0.01-0.20) K/uL PT (9.0-12.0) Seconds INR (0.9-1.1) APTT (21-31) Seconds PTT Ratio VBG pH (7.36-7.41) VBG pCO2 (38-50) mmHg VBG pO2 mmHg VBG HCO3 mmol/L VBG O2 Saturation % VBG Base Excess mEq/L POC Sodium 145 H (135-144) mmol/L Sodium 142 (136-145) mmol/L POC Potassium 4.2 (3.3-5.0) mmol/L Potassium 4.3 (3.5-5.1) mmol/L POC Chloride 115 H (101-112) mmol/L Chloride 112 H (98-107) mmol/L Carbon Dioxide 15 L (21-32) mmol/L POC Total CO2 14 L (24-31) mmol/L Anion Gap 15 H (3-11) POC Anion Gap 22.0 (16-25) mmol/L POC BUN 47 H (7-18) mg/dl BUN 50 H (6-23) mg/dl Creatinine 3.48 H (0.6-1.4) mg/dl POC Creatinine 3.7 H (0.6-1.3) mg/dl Est Cr Clr Drug Dosing 26.0 ml/min eGFR 22.68 BUN/Creatinine Ratio 14.4 (10-20) Glucose 158 H (70-99(Fasting)) mg/dl POC Glucose (70-99) mg/dl POC Glucose (other) 152 H (70-99) mg/dl Lactate 2.0 (0.4-2.0) mmol/L Calcium 9.9 (8.6-10.3) mg/dl POC Ioniz Calcium Francoise 1.17 (1.12-1.32) mmol/l Magnesium 1.8 (1.7-2.4) mg/dl Total Bilirubin 0.8 (0.2-1.0) mg/dl Direct Bilirubin 0.2 (0-0.2) mg/dl AST 15 (13-39) U/L ALT 16 (7-52) U/L Alkaline Phosphatase 100 (34-104) U/L Ammonia (18-72) umol/L Troponin I High Sens 3.2 (0-20) pg/ml Total Protein 8.8 H (6.0-8.3) gm/dl Albumin 4.3 (3.4-5.0) gm/dl Procalcitonin 0.25 (0-0.5) ng/ml Urine Color Urine Appearance (Clear) Urine pH (4.5-7.5) Ur Specific [place] (1.000-1.030) Urine Protein (Negative) Urine Glucose (UA) (Negative) Urine Ketones (Negative) Urine Blood (Negative) Urine Nitrite (Negative) Urine Bilirubin (Negative) Urine Urobilinogen (Negative) Ur Leukocyte Esterase (Negative) Urine WBC (Auto) (0-5) /hpf Urine RBC (Auto) (0-2) /hpf U Hyaline Cast (Auto) (0-2) /lpf U Epithel Cells (Auto) (0-2) /hpf Urine Bacteria (Auto) (None Seen) Urine Comment Urine Opiates Screen (Neg) Ur Methadone, Qual (Neg) Urine Fentanyl Screen (Neg) Urine Barbiturates (Neg) Ur Phencyclidine (PCP) (Neg) U Amphetamin/Meth Scrn (Neg) MDMA (Ecstasy) Screen (Neg) U Benzodiazepines Scrn (Neg) Ur Cocaine Metabolite (Neg) U Marijuana (THC) Screen (Neg) Ethyl Alcohol mg/dL < 10.0 (<10.0) mg/dl Adenovirus (PCR) Not Detected (NotDetected) Anaplasma Smear See Comment A. phagocytophilum DNA Babesia Smear See Comment Babesia microti DNA PCR B. pertussis DNA (PCR) Not Detected (NotDetected) B.parapertussis DNA PCR Not Detected (NotDetected) Lyme Disease Screen (Negative) C. pneumoniae DNA (PCR) Not Detected (NotDetected) Coronavirus OC43 (PCR) Not Detected (NotDetected) Coronavirus HKU1 (PCR) Not Detected (NotDetected) Coronavirus 229E (PCR) Not Detected (NotDetected) SARS-CoV-2 (PCR) Not Detected (NotDetected) Coronavirus NL63 (PCR) Not Detected (NotDetected) Human Metapneumovir PCR Not Detected (NotDetected) Influenza Type A (PCR) Not Detected (NotDetected) Influenza Type B (PCR) Not Detected (NotDetected) M. pneumoniae (PCR) Not Detected (NotDetected) Parainfluenza 1 (PCR) Not Detected (NotDetected) Parainfluenza 2 (PCR) Not Detected (NotDetected) Parainfluenza 3 (PCR) Not Detected (NotDetected) Parainfluenza 4 (PCR) Not Detected (NotDetected) RSV (PCR) Not Detected (NotDetected) Entero/Rhino (PCR) DETECTED A (NotDetected) 04/02/25 Range/Units 21:15 WBC (4.8-10.8) K/ul RBC (4.70-6.10) M/uL Hgb (14.0-18.0) g/dl POC Hgb (14.0-18.0) g/dl Hct (42.0-52.0) % POC Hct (42-52) % MCV (80.0-100.0) fL MCH (25.0-34.0) pg MCHC (32.0-36.0) g/dL RDW Std Deviation (36.4-46.3) fL RDW Coeff of Mauricio (11.5-14.5) % Plt Count (130-400) K/uL MPV (9.4-12.4) fL Immature Gran % (Auto) % Neut % (Auto) % Lymph % (Auto) % [place] % (Auto) % Eos % (Auto) % Baso % (Auto) % Neut # (Auto) (1.40-6.50) K/uL Lymph # (Auto) (1.20-3.40) K/uL [place] # (Auto) (0.11-0.59) K/uL Eos # (Auto) (0.00-0.50) K/uL Baso # (Auto) (0.00-0.20) K/uL Immature Gran # (Auto) (0.01-0.20) K/uL PT (9.0-12.0) Seconds INR (0.9-1.1) APTT (21-31) Seconds PTT Ratio VBG pH (7.36-7.41) VBG pCO2 (38-50) mmHg VBG pO2 mmHg VBG HCO3 mmol/L VBG O2 Saturation % VBG Base Excess mEq/L POC Sodium (135-144) mmol/L Sodium (136-145) mmol/L POC Potassium (3.3-5.0) mmol/L Potassium (3.5-5.1) mmol/L POC Chloride (101-112) mmol/L Chloride (98-107) mmol/L Carbon Dioxide (21-32) mmol/L POC Total CO2 (24-31) mmol/L Anion Gap (3-11) POC Anion Gap (16-25) mmol/L POC BUN (7-18) mg/dl BUN (6-23) mg/dl Creatinine (0.6-1.4) mg/dl POC Creatinine (0.6-1.3) mg/dl Est Cr Clr Drug Dosing ml/min eGFR BUN/Creatinine Ratio (10-20) Glucose (70-99(Fasting)) mg/dl POC Glucose 139 H (70-99) mg/dl POC Glucose (other) (70-99) mg/dl Lactate (0.4-2.0) mmol/L Calcium (8.6-10.3) mg/dl POC Ioniz Calcium Francoise (1.12-1.32) mmol/l Magnesium (1.7-2.4) mg/dl Total Bilirubin (0.2-1.0) mg/dl Direct Bilirubin (0-0.2) mg/dl AST (13-39) U/L ALT (7-52) U/L Alkaline Phosphatase (34-104) U/L Ammonia (18-72) umol/L Troponin I High Sens (0-20) pg/ml Total Protein (6.0-8.3) gm/dl Albumin (3.4-5.0) gm/dl Procalcitonin (0-0.5) ng/ml Urine Color Urine Appearance (Clear) Urine pH (4.5-7.5) Ur Specific [place] (1.000-1.030) Urine Protein (Negative) Urine Glucose (UA) (Negative) Urine Ketones (Negative) Urine Blood (Negative) Urine Nitrite (Negative) Urine Bilirubin (Negative) Urine Urobilinogen (Negative) Ur Leukocyte Esterase (Negative) Urine WBC (Auto) (0-5) /hpf Urine RBC (Auto) (0-2) /hpf U Hyaline Cast (Auto) (0-2) /lpf U Epithel Cells (Auto) (0-2) /hpf Urine Bacteria (Auto) (None Seen) Urine Comment Urine Opiates Screen (Neg) Ur Methadone, Qual (Neg) Urine Fentanyl Screen (Neg) Urine Barbiturates (Neg) Ur Phencyclidine (PCP) (Neg) U Amphetamin/Meth Scrn (Neg) MDMA (Ecstasy) Screen (Neg) U Benzodiazepines Scrn (Neg) Ur Cocaine Metabolite (Neg) U Marijuana (THC) Screen (Neg) Ethyl Alcohol mg/dL (<10.0) mg/dl Adenovirus (PCR) (NotDetected) Anaplasma Smear A. phagocytophilum DNA Babesia Smear Babesia microti DNA PCR B. pertussis DNA (PCR) (NotDetected) B.parapertussis DNA PCR (NotDetected) Lyme Disease Screen (Negative) C. pneumoniae DNA (PCR) (NotDetected) Coronavirus OC43 (PCR) (NotDetected) Coronavirus HKU1 (PCR) (NotDetected) Coronavirus 229E (PCR) (NotDetected) SARS-CoV-2 (PCR) (NotDetected) Coronavirus NL63 (PCR) (NotDetected) Human Metapneumovir PCR (NotDetected) Influenza Type A (PCR) (NotDetected) Influenza Type B (PCR) (NotDetected) M. pneumoniae (PCR) (NotDetected) Parainfluenza 1 (PCR) (NotDetected) Parainfluenza 2 (PCR) (NotDetected) Parainfluenza 3 (PCR) (NotDetected) Parainfluenza 4 (PCR) (NotDetected) RSV (PCR) (NotDetected) Entero/Rhino (PCR) (NotDetected) Medications Administered Current Inpatient Medications Acetaminophen (Acetaminophen 325 Mg Tab) 650 mg PO Q4H PRN PRN Reason: Pain or Fever Stop: 05/03/25 03:03 Heparin Sodium (Porcine) (Heparin Sod 5,000 Unit/0.5 Ml Vial) 5,000 units SQ Q12 MIO Stop: 05/03/25 08:59 Last Admin: 04/03/25 10:18 Dose: 5,000 units Acetaminophen (Ofirmev) 1,000 mg in 100 mls @ 400 mls/hr IV Q8H PRN PRN Reason: Pain or Fever Stop: 04/06/25 03:39 Last Infusion: 04/03/25 04:05 Dose: Infused Acyclovir Sodium 620 mg/ (Dextrose) 112.4 mls @ 100 mls/hr IV Q12H [facility]; Protocol Stop: 04/13/25 04:59 Last Infusion: 04/03/25 08:25 Dose: Infused Meropenem 2,000 mg/ Sodium (Chloride) 100 mls @ 200 mls/hr IV Q12H MIO; Protocol Stop: 04/13/25 05:59 Last Infusion: 04/03/25 07:55 Dose: Infused Sodium Bicarbonate 75 meq/ (Sodium Chloride) 1,075 mls @ 80 mls/hr IV .[id number] MIO Stop: 04/06/25 07:59 Last Admin: 04/03/25 08:27 Dose: 80 mls/hr Vancomycin HCl 500 mg/ Sodium (Chloride) 110 mls @ 200 mls/hr IV ONE ONE Stop: 04/03/25 16:32 Lactulose (Lactulose 200gm/700ml Wtr Enema) 200 gm [place] Q8H MIO Stop: 05/03/25 03:44 Last Admin: 04/03/25 12:30 Dose: Not Given Miscellaneous Information (Vancomycin Consult Active) 1 each N/A UD PRN PRN Reason: Consult Stop: 05/03/25 03:22 Polyethylene Glycol (Polyethylene (Miralax) 17 Gm Pack) 17 gm PO DAILY PRN PRN Reason: Constipation Stop: 05/03/25 03:03
--- NOTE | 2025-04-03 15:17 | Infectious Disease Consult ---
Date of Service April 03, 2025 Telehealth Information I performed this visit using a real-time telehealth connection between my location and the patients location ([facility]). After connecting through interactive tele-video, patient was identified by name and date of and/or wristband check.Patient (or authorized healthcare national sales representative) was informed that this was a telemedicine visit and it was being conducted confidentially over secure lines. My office door was closed and no one else was present in the room with me.Patient (or authorized healthcare national sales representative) provided consent to proceed with the visit, expressed an understanding of privacy and security of the telemedicine visit, and gave permission to have a hospital national sales representative in the room in order to assist with the visit and to conduct portions of the visit, as needed. I informed the patient (or authorized healthcare national sales representative) that I reviewed their record and presented the opportunity for them to ask any questions regarding the visit today. The patient agreed to participate. Assessment & Plan (1) Acute encephalopathy: (2) Leukocytosis: (3) Obstructive nephropathy: (4) Acute kidney injury superimposed on chronic kidney disease: Plan My concern for meningitis is low at this point. But it would be reasonable to continue acyclovir, ceftriaxone meningitic dose and vancomycin for now. I agree with sending for the tick-borne panel. Follow up on the urine culture and adjust antibiotics if needed. History of Present Illness History of Present Illness Ash is a 34-year-old man with past medical history of vesicoureteral reflux status post multiple urologic surgeries including urostomy creation in the right lower abdomen, he also continues to straight caths around 4-5 times daily, history of obstructive nephropathy with CKD, and recurrent UTIs who was admitted to the hospital on 04/02 because of acute encephalopathy, generalized weakness, nausea and vomiting. Per 's report, the patient was out on a hunting trip for around 1 week before he started having the symptoms. No report of tics or tick bites. Also, she mentioned that he did not have any headache, neck stiffness or photophobia. On presentation, he was found to be afebrile, tachycardic at 110; the rest of the vitals were within normal limits. Initial workup showed mild leukocytosis of 11.5 (ANC 9.45), elevated creatinine at 3.5 (baseline creatinine around 2.5), UA from urostomy tube showing more than 50 WBCs and 4+ bacteria. Respiratory viral panel was positive for entero/rhinovirus. ID team was consulted for further recommendations and to help guide antibiotic treatment. Allergies Allergy/AdvReac Type Severity Reaction Status Date / Time latex Allergy Intermediate RASH/BLISTERED Verified 04/02/25 21:45 SKIN Home Medications Medication Instructions Recorded Confirmed Type No Known Home Medications 04/02/25 04/02/25 History Patient History Medical History Metabolic acidosis CKD (chronic kidney disease) Surgical History History of urologic surgery Family History Brother Congenital kidney disease Social History Smoking Status: Unknown if ever smoked Hx Alcohol Use: No Hx Substance Use: No Preferred Language: Khmer Communication Ability: Effective Rivet Hole Puncher Required: No Beliefs That Will Affect Care: None Current Living Situation: Family Other Information That Helps Us Care for You: No Feels Safe at Home: Yes Safety Concerns: Feels Safe At This Time Assistive Devices: Other Review of Systems Negative except for what was mentioned in the H&P Physical Exam Could not be performed as the visit was conducted via TeleMed. Results & Data Vital Signs (Past 12 Hours) Vital Signs Temp Pulse Pulse Resp BP BP Pulse Ox 04/03/25 11:12 36.7 C 100 H 18 107/72 96 04/03/25 07:12 36.6 C 79 12 105/73 98 04/03/25 07:00 88 04/03/25 05:15 92 H 04/03/25 05:15 89 16 120/80 98 04/03/25 05:13 88 20 120/80 98 04/03/25 04:36 37.2 C 85 18 110/73 97 04/03/25 04:06 98 O2 Del Method O2 Flow Rate 04/03/25 11:12 Room Air 04/03/25 07:12 Room Air 04/03/25 07:00 04/03/25 05:15 04/03/25 05:15 Room Air 04/03/25 05:13 Room Air 04/03/25 04:36 Room Air 04/03/25 04:06 Room Air 2 Laboratory Results Microbiology: 04/02: 2 sets of blood culture negative to date 04/02: Urine culture growing Proteus mirabilis Diagnostic Findings CT abdomen pelvis performed on 04/02: 1. Chronic severe bilateral hydroureteronephrosis with marked thinning of the renal parenchyma. Both ureters joint together at the mid ureteral level where a stricture is suggested. The more distal common ureter is decompressed and inserts in the region of the left UVJ. 2. Distended and trabeculated urinary bladder suggesting a neurogenic bladder. (2) Leukocytosis Leukocytosis type: unspecified Qualified Code(s): D72.829 - Elevated white blood cell count, unspecified
[2025-04-03] MEDS: VANCOMYCIN 500 MG in NSS 100mL IV ONE (15:44)
[2025-04-03] MEDS: cefTRIAXone SODIUM 2,000 MG/50 ML BAG IV SCH (19:47)
--- NOTE | 2025-04-03 23:25 | Communication Note ---
Date of Service: April 03, 2025 Patient refusing contemplated LP procedure in a.m. as per RN.
[2025-04-04] MEDS ORDERED: ERTAPENEM 500MG 500 MG/5 ML SYR IV SCH (03:00)
[2025-04-04 07:45] LABS: Hematocrit (blood only) 40.2 % (42.0-52.0); Hemoglobin 13.5 g/dL (14.0-18.0); Immature Granulocytes # (auto) 0.02 K/uL (0.01-0.20); Immature Granulocytes % (auto) 0.3 %; Mean Corpuscular Hemoglobin 29.7 pg (25.0-34.0); Mean Corpuscular Volume 88.5 fL (80.0-100.0); Platelet Count 220 K/uL (130-400); RDW Standard Deviation 42.5 fL (36.4-46.3); Red Blood Count 4.54 M/uL (4.70-6.10); White Blood Count 5.77 K/ul (4.8-10.8)
[2025-04-04 08:10] LABS: Alanine Aminotransferase 11.0 U/L (7-52); Albumin Globulin Ratio 1.1 (0.9-2); Albumin Level 3.6 gm/dl (3.4-5.0); Alkaline Phosphatase 68.0 U/L (34-104); Anion Gap 8.0 (3-11); Bilirubin,Total 0.4 mg/dl (0.2-1.0); Blood Urea Nitrogen 34.0 mg/dl (6-23); Calcium 8.9 mg/dl (8.6-10.3); Carbon Dioxide 24.0 mmol/L (21-32); Chloride 110.0 mmol/L (98-107); Creatinine Clr Calc Pharmacy 35.0 ml/min; Globulin 3.2 gm/dl (2.5-4.0); Glucose 152.0 mg/dl (70-99(Fasting)); Magnesium 1.8 mg/dl (1.7-2.4); Potassium 3.0 mmol/L (3.5-5.1); Sodium 142.0 mmol/L (136-145); Total Protein 6.8 gm/dl (6.0-8.3)
[2025-04-04 09:03] VITALS: RESP 18
--- NOTE | 2025-04-04 10:05 | Pharmacy Report ---
Pharmacy PK ABX Note - Date of Service April 04, 2025 - Assessment and Plan Assessment 04/04: Day #2 antimicrobial therapy * Random vancomycin level drawn this morning was 10mcg/mL. Will give vancomycin 750mg iv x 1 this morning and will continue dosing by level (next level sche duled for tomorrow morning) due to current renal function. * Urine culture from 04/02 grew P. mirabilis (only resistant to Bactrim), Preliminary blood cultures from 04/02 are no growth to date. * Respiratory panel positive for entero/rhino virus * afebrile the last 24 hours, mild leuckocytosis resolved, and renal function continuing to improve * ID has been consulted and though concern for meningitis is low, recommend to continue acyclovir, ceftriaxone, and vancomycin for now (meropenem has been d/c. 04/03: 34 year old M receiving Vancomycin + Meropenem + Acyclovir empirically for treatment of UTI vs meningitis. * Day #1 of antimicrobial therapy. PMHx significant for CKD stage III with baseline SCr of 2-2.5. Multiple kidney surgeries in past. Has stoma which he straight caths 4-5 times daily. History of recurrent UTIs. * Tmax of 38.2Oc. Procal 0.25 and lactate 3.4 down to 1.2. Leukocytosis improved. SCr improving as well, down to 3.2 today. * Urine and blood cultures pending. Concern for meningitis. LP pending but of limited efficacy now given patient already on abx. * Past urine cultures with proteus and e. coli. Some resistance but not to ceftriaxone. Will recommend dose adjustment of acyclovir to 540 mg given actual body weight less than ideal and change of meropenem to ceftriaxone given no history of ESBL or pseudomonas. Plan Vancomycin * Random vancomycin level was 10.8 mcg/mL this morning. * Will give 750 mg IV x 1 * Continue to dose per level for now. * Random level ordered for: 04/05/25 Ceftriaxone 2gm iv q 12 hours Acyclovir * 540 mg IV every 12 hours Pharmacy will continue to follow and will adjust dose/frequency as necessary. Thank you. Pharmacy has transitioned to AUC monitoring for vancomycin. AUC/SOCORRO is the preferred PK/PD target and is associated with decreased risk of nephrotoxicity compared to traditional trough targets.
[2025-04-04] MEDS: VANCOMYCIN 750 MG in SODIUM CHLORIDE 0.9% 250 ML IV ONE (10:10)
--- NOTE | 2025-04-04 10:13 | Discharge Summary ---
Discharge Summary Date of Service April 04, 2025 Principal Dx & Hospital Course #1 = Principal Diagnosis (1) Complicated urinary tract infection: Per admitting provider w/ addendum: 34-year-old male with past med history significant for chronic kidney disease, vesicoureteral reflux with multiple kidney and bladder surgeries started age 5 had bladder enlarged x3 , right and left ureters connected,had total of 19 surgeries, currently has stoma is right lower abdomen from which he straight caths 4-5 times daily and has history of recurrent UTIs was brought in because of confusion and nausea and vomiting. UA strongly suggestive of UTI. He had a fever as well. Due to his confusion, there was concern for meningitis however he displayed no other s/s concerning for such. He declined LP. ID was consulted, likely metabolic encephalopathy due to UTI. very low suspicion for DRAG SAWYER infection. He also had RAGHAVENDRA on CKD3 which improved with IVF. Renal function back to normal. CT AP did show a ureteral stricture. He was instructed to f/u with his urologist regarding this. Today, he feels well and is very eager to go home. Mentation back to baseline. No neurologic issues currently. present in room and agrees. He did have an episode of emesis this AM after drinking soda. He had a bowel movement. no abd pain. If he tolerated lunch today, he will be discharged home. will have him complete a 5 day course of augmentin for his UTI. vitals stable, afebrile x 24 hours. blood cx neg. mild hypokalemia which was replaced. He will f/u with his PCP and urologist upon discharge. RAGHAVENDRA on CKD stage III Metabolic acidosis Baseline creatinine around 2-2.5 RAGHAVENDRA resolved with IVF HYpokalemia-replaced Entero-/rhinovirus Supportive care Droplet precautions mild. no cough or SOB today. no O2 requirements #Metabolic encephalopathy -resolved DVT prophylaxis SCDs and heparin subcu (on hold, to obtain LP) Disposition Med/telemetry Full code I spent a total of 55 minutes coordinating, documenting, and providing care for this patient excluding time spent in the performance of separately billed services. This included personally reviewing all current laboratories and imaging studies, medical reconciliation, outpatient chart review and discussion with specialists (2) Obstructive nephropathy: Notes For Next Care Provider Medication Changes From Visit augmentin x 5 days Admission HPI Per Admitting Provider 34-year-old male with past med history significant for chronic kidney disease, vesicoureteral reflux with multiple kidney and bladder surgeries started age 5 had bladder enlarged x3 , right and left ureters connected,had total of 19 surgeries, currently has stoma is right lower abdomen from which he straight caths 4-5 times daily and has history of recurrent UTIs was brought in because of confusion and nausea and vomiting. Mother is in the room. Patient is drowsy. Mother states when EMS came patient was agitated and was given medications to calm down. Patient currently not able to answer any questions. Mother states patient's was having a lot of nausea and vomiting today. Did not eat anything today. Was not getting up from the bed today. Usually eats and drinks okay and ambulates okay. Patient lives with his and children. Mother states she lives close by. As per mother patient has some cough. But no runny nose. Did not complain of any pain. No diarrhea. Hemodynamics okay. Currently could not get any history from the patient.[place]. Past medical history. As mentioned above. Past surgical history. Multiple kidney and ureter and bladder surgeries. Social history. Denies smoking. Denies alcohol Use. Denies drug use. Family history. Brother has kidney reflux disease Discharge Exam Vitals and labs reviewed General: Well appearing, NAD HEENT: EOMI, PERRLA Neck: Supple Cardiac: RRR no rubs gallops or murmurs Lungs: CTA no rhonchi wheezing or rales Abd: S NT ND BS positive : Deffered MSK: Full ROM. No obvious deformities Ext: No Edema cyanosis Skin: Warm, Dry Neuro: AOx3 No focal deficits. Psych: Normal Mood Updated Medication List Medication Instructions Recorded Confirmed Type amoxicillin 875 mg-potassium 1 tab PO BID 5 days #10 tabs 04/04/25 Rx clavulanate 125 mg tablet Hospital Stay Data Consultations 04/02/25 22:36 ED Decision to Admit Stat 04/03/25 07:38 Consult Infectious Diseases Routine 04/03/25 08:00 Consult Nephrology Routine 04/03/25 17:08 Consult Urology Routine Diagnostic Imagining Performed 04/02/25 21:11 CT head/brain wo con Stat 04/02/25 21:16 CT abd pelvis wo con Stat 04/04/25 07:30 IR lumbar puncture diagnostic Routine Pending Results Patient Have Any Pending Studies at Discharge: No Discharge Instructions Given to Patient (Per Discharging Provider) Please finish taking your Rx as prescribed. Follow up with your PCP in 1 week for repeat kidney function testing. Please follow up with your urologist and notify them of the ureteral stricture seen on CT scan. Total Time Total Time Spent Total Time Spent (In Minutes): 55
[2025-04-04] MEDS: POTASSIUM CHLORIDE CRTAB 20 MEQ TABCR PO STA (10:55)
[2025-04-04 11:43] VITALS: PULSE 74; TEMP 97.9; O2SAT 98
--- NOTE | 2025-04-04 12:40 | Nephrology Progress Note ---
Date of Service April 04, 2025 Assessment & Plan (1) Acute kidney injury superimposed on chronic kidney disease: Plan: improving stage one nonoliguric RAGHAVENDRA multifactorial > combination of obstruction and sepsis. Admission creatinine 3.5, creatinine today 2.4. 3.5 creatinine was peak value. baseline creatinine 2.0 (most recent OP 2.1 on 02/26) > eGFR 43 ml/min at baseline UA notable for marked inflammation c/w infection in ileal conduit (specimens from this structure will always to a degree look inflamed) presented w/ creatinine 3.5; need more info on whether stricture new no indication for dialysis discussion Potassium from today was replaced by hospitalist Encephalopathy causes still to my mind unexplained; that said it is improving patient was discharged before I could give discharge recommendations for d/c summary paper work I will follow-up with buyer planner to ensure the following recommendations Are in place: -basic metabolic panel weekly x 3 to be ordered by neph nurse -f/u appt w/ neph to depend on lab results but for now defer neph f/u except as already planned/routinely scheduled -push abd/pelvic [facility] from [facility] [place] so [place] [facility] [place] [place]compare to prior -f/u w/ urology [facility] re stomal vidal removal I reviewed above w/ pt and his ; will f/u w/ d/c nurse navigator as well. (2) Sepsis: Plan: early sepsis is a possibility > though lactate and leukocytosis normalized fast and no hypotension (note that on EPIC review his OP SBP runs 100s-120s) he has recurrent complex UTIs and has had resistant organisms in the past; this infection however has possibly new evidence of obstruction w/ ureteral stricture > I have reviewed both films and defer to urology opinion versus radiology Also w/ significantly altered MS and combativeness needing sedation > hence w/u for meningitis; though mild hyperammonemia may have some role here (hyperammonemia resolved on subsequent labs) continue meropenem f/u pending urine/blood cultures >> prelim again w/ P mirabilis, admission UA c/w UTI in ileal conduit f/u LP data (3) Hydroureteronephrosis: Plan: chronic condition but stricture is new radiographically since November on my interpretation >suggest primary review images w/ radiology >currently w/ stomal vidal working well (4) Ureteral stricture: Plan: consult urology if this is new/present (5) Metabolic acidosis: Plan: nonanion gap metabolic acidosis already present at baseline will be worse for him on NS >changed IVF to 1/2 NS w/ 75 mEq/L Na bic at 80 mL hourly Admission and Anticipated Discharge Date Admission Date: April 02, 2025 Subjective encephalopathy improved today; no shortness of breath no edema. Infectious diseases saw the patient and concern for meningitis as low. Patient also evaluated by Urology and recommendations for tertiary care follow-up regarding stricture and continued antibiotic therapy recommended. Also suggested that he maintain stomal Vidal catheter at hospital discharge. Review of Systems 2 Review of Systems: All systems reviewed & are unremarkable except as noted in Subjective Physical Exam 2 Constitutional: well developed ( Tired appearing), well nourished and cooperative; no acute distress Eyes: EOM intact bilaterally ENMT: Mouth: + dry oral mucous membranes Respiratory: normal respiratory effort Auscultation: + diminished lung sounds Cardiovascular: RRR, no murmur, no edema Gastrointestinal (Abdomen): Inspection/Auscultation: normal bowel sounds P ercussion/Palpation: abdomen soft; abdomen nontender Musculoskeletal: Extremities: strength 5/5 throughout Skin: no rashes, warm and dry Results & Data Vital Signs (Past 12 Hours) Vital Signs Temp Pulse Resp BP Pulse Ox O2 Del Method 04/04/25 11:42 36.6 C 74 18 117/76 98 Room Air 04/04/25 09:01 36.7 C 68 18 112/73 97 Room Air 04/04/25 02:38 36.8 C 104 H 15 106/72 98 Room Air Laboratory Results 04/04/25 07:11 04/04/25 07:11 (2) Sepsis Sepsis acute organ dysfunction status: unspecified Sepsis type: sepsis due to unspecified organism Qualified Code(s): A41.9 - Sepsis, unspecified organism
--- NOTE | 2025-04-04 13:48 | Urology Consultation ---
<Statement entered by Jack Perez MD - 04/05/25 07:58> Chart reviewed Patient discussed with YASMIN, plan reviewed and agree as written. - Highly complex situation from standpoint appears on basis of CT to have some degree of catheterizable channel obstruction or to simply not have self cathed in some time as his bladder was quite distended. Patient also has longstanding bilateral severe hydronephrosis with parenchyma thinning and CKD also has appearance of long ureteral stricture. Appears at some point transureteroureterostomy was done and ureter appears thinned with upstream dilation. Does not appear amenable to endoscopic management and any revision would be highly complex undertaking in setting of his prior procedures. - in this setting we do think it would be wisest to maintain catheter in channel for maximal decompression and to establish care with tertiary center for further management - if unable to do so we are happy to see him in our office for eventual catheter removal and cr check but would not be able to offer the reconstruction he may need to preserve renal function at our center Date of Consultation April 04, 2025 Assessment & Plan (1) Complicated urinary tract infection: (2) Hydroureteronephrosis: (3) Ureteral stricture: (4) Acute kidney injury superimposed on chronic kidney disease: Plan 34yo male with a complex history admitted on 04/02/25 with metabolic encephalopathy, complicated UTI, RAGHAVENDRA on CKD. Urology was consulted 04/04/25 for ureteral stricture. Pt afebrile and hemodynamically stable. Labs today - WBCs 5.77, Creatinine downtrending 2.42 today (was 3.48 -3.20 previously). Urine culture grew Proteus. Blood cultures preliminary x 24 hours. Stomal Damon draining clear yellow urine. CT abd pelvis 04/02/25 - Chronic severe bilateral hydronephrosis with marked thinning of the renal parenchyma, both ureters join together at the mid ureteral level where a stricture is suggested, the more distal common ureter is decompressed in certain the region of the left UVJ, distended/trabeculated urinary bladder suggesting a neurogenic bladder. There is severe bilateral hydronephrosis, likely chronic finding. However, it is unclear if stoma drainage will be adequate for maximal drainage given RAGHAVENDRA. The kidneys do not appear to be draining well and this can progressively damage renal function. Since he is stable at present and creatinine is downtrending, can continue observation and close monitoring. Continue to monitor creatinine. Continue antibiotic therapy. If any signs of worsening renal function or infectious symptoms, may need transfer to tertiary center w/IR for bilateral nephrostomy tube placement. Recommend maintaining stomal Damon catheter. He will need follow-up with urology ideally at a tertiary center to determine management of ureteral stricture. He does report an upcoming appointment with [facility] urology. We can arrange a follow-up with our office if needed. Discussed with hospitalist. Urology will follow along, please contact us with any questions/concerns or changes in patient status. History of Present Illness Attending Physician: Alberto Mcgee DO History of Present Illness 34-year-old male who presented to the ED on 04/02/25 with confusion and nausea/vomiting and is admitted with metabolic encephalopathy and complicated UTI. History obtained from patient/ and chart review. Past med history significant for chronic kidney disease follows with nephrology and vesicoureteral reflux with multiple kidney and bladder surgeries since age 5 including bladder enlargement x 3 and BL ureteral reimplantation w/ total of 19 surgeries and currently on CIC 4-5 times daily through R lower abdominal stoma and recurrent UTIs. Urology was consulted for ureteral stricture. CT abd pelvis 04/02/25- 1. Chronic severe bilateral hydroureteronephrosis with marked thinning of the renal parenchyma. Both ureters joint together at the mid ureteral level where a stricture is suggested. The more distal common ureter is decompressed and inserts in the region of the left UVJ. 2. Distended and trabeculated urinary bladder suggesting a neurogenic bladder. Patient was seen at bedside this morning. Awake and resting in bed on arrival. No acute distress. at bedside. Pt awake, alert and answering questions appropriately. Overall feeling better today. No c/o pain. Denies f/c/n/v. Stomal Damon cath draining clear yellow urine. Patient reports that he has an upcoming appointment to establish care with [facility] urology. Allergies Allergy/AdvReac Type Severity Reaction Status Date / Time latex Allergy Intermediate RASH/BLISTERED Verified 04/02/25 21:45 SKIN Home Medications Medication Instructions Recorded Confirmed Type amoxicillin 875 mg-potassium 1 tab PO BID 5 days #10 tabs 04/04/25 Rx clavulanate 125 mg tablet Patient History Medical History Metabolic acidosis CKD (chronic kidney disease) Surgical History History of urologic surgery Family History Brother Congenital kidney disease Social History Smoking Status: Unknown if ever smoked Hx Alcohol Use: No Hx Substance Use: No Preferred Language: German Communication Ability: Effective De Icer Installer Required: No Beliefs That Will Affect Care: None Current Living Situation: Family Other Information That Helps Us Care for You: No Feels Safe at Home: Yes Safety Concerns: Feels Safe At This Time Assistive Devices: Other Review of Systems Review of Systems: All systems reviewed & are unremarkable except as noted in HPI & below Physical Exam Constitutional: no acute distress Respiratory: no respiratory distress and no labored breathing Musculoskeletal: Head/Neck/Chest: normocephalic Neurologic: moves all extremities and awake Psychiatric: Orientation: alert, oriented x 3 and cooperative Genitourinary: Damon in place R lower abdominal stoma and draining clear yellow urine Results & Data Vital Signs (Past 12 Hours) Vital Signs Temp Pulse Resp BP Pulse Ox O2 Del Method 04/04/25 11:42 36.6 C 74 18 117/76 98 Room Air 04/04/25 09:01 36.7 C 68 18 112/73 97 Room Air 04/04/25 02:38 36.8 C 104 H 15 106/72 98 Room Air PG Care Time/CCT Total # of Minutes Spent Total Time Spent with Patient: Total time spent is greater than 50% in coordination of care (as documented) at patient's floor/unit and/or counseling patient: Coding Level of Care Code 04394 IN/OBS CONSULT LVL 3,45M Diagnoses Complicated urinary tract infection N39.0 Hydroureteronephrosis N13.30 Ureteral stricture N13.5 Acute kidney injury superimposed on chronic kidney disease N17.9; N18.9
[2025-04-04 14:40] VITALS: BP 123/81
--- NOTE | 2025-04-05 10:15 | Coding Query ---
To promote full compliance with coding requirements relating to patient care, provider participation is requested in all cases of wrapper off uncertainty. Please assist us with the question(s) below: Coding Question(s): The diagnosis below was documented in the ER, H&P, Nephrology Consult and Nephrology Progress Note, and 04/03 Hospitalist Progress Note, then subsequently fell off all further documentation on Discharge Summary. Please indicate if it is still a possible diagnosis or ruled out. Physician's Response(s): SEPSIS ( ) Diagnosed and POA. Please specify further below, in your clinical opinion, the most likely cause/source of Sepsis: ( x ) Complicated UTI ( ) Other: Please Specify ( ) Unknown most likely cause/source ( ) Ruled out ( ) Other (please specify) MTDD
--- NOTE | 2025-04-05 10:17 | Coding Query ---
CODING QUERY To promote full compliance with coding requirements relating to patient care, provider participation is requested in all cases of medical record coder uncertainty. Please assist us with the question(s) below: In the record, it states that the patient has a Complicated UTI. Please clarify below the cause of the UTI if applicable. Thank you. ( ) The ileal conduit was the cause of the UTI. ( ) Other urinary cath/device was the cause of the UTI. (x) UTI, unspecified cause. ( ) Self-catheterization was the cause of the UTI. ( ) Other (Specify): Patient does not have an ileal conduit appears to have a mitrofanoff catheterizable channel and bladder augmentation with ureteral reimplant, unclear whether precipitated by abnormal anatomy with poor urine drainage or intermittent catheterization Principal Diagnosis: "that condition established after study, to be chiefly responsible for occasioning the admission of the patient to the hospital for care." Co-Existing Principal Diagnosis: "when two or more diagnoses equally meet the criteria for principal diagnosis as determined by the circumstances of admission, diagnostic work up, and/or therapy provided, and the Alphabetic Index, Tabular List, or another coding guideline does not provide sequencing direction, any one of the diagnoses may be sequenced first." "When the physician has documented what appears to be a current diagnosis in the body of the record, but has not included the diagnosis in the final diagnostic statement, the physician should be asked whether the diagnosis should be added." (Source [facility] 2 QTR90. p3-4) CHRISTOPHER
--- NOTE | 2025-04-06 07:58 | Electrocardiogram Report ---
Test Reason : Blood Pressure : */* mmHG Vent. Rate : 104 BPM Atrial Rate : 104 BPM P-R Int : 156 ms QRS Dur : 76 ms QT Int : 338 ms P-R-T Axes : 60 83 48 degrees QTcB Int : 444 ms Sinus tachycardia Possible Left atrial enlargement Borderline ECG When compared with ECG of 01-Feb-2024 00:08, Nonspecific T wave abnormality now evident in Lateral leads Confirmed by Roland Gale ([id number]) on 04/06/2025 7:58:28 AM Referred By: REFERRED SELF Confirmed By: Roland Gale
== END 2025-04-04 15:15 | disposition home or self-care (01) | DRG 871 ==
LOC: ED 20:59 → EDINP 23:24 → SUATTDRO 23:24 → 2S 04-03 03:04